=== PATIENT | female | born 1950 | race Caucasian/White ===

== ENCOUNTER → 2020-01-26 08:55 | Outpatient (CLI) | payer MEDICARE, OTHER, SELFPAY ==
--- NOTE | 2020-01-26 | DI.MG.S_ITS ---
BILATERAL DIGITAL SCREENING MAMMOGRAM 3D/2D WITH CAD: 01/26/2020 CLINICAL: Routine screening. Comparison is made to exams dated: 01/19/2019 mammogram, 12/15/2017 mammogram, and 11/15/2016 mammogram - [facility]. The tissue of both breasts is heterogeneously dense. This may lower the sensitivity of mammography. Current study was also evaluated with a Computer Aided Detection (CAD) system. No significant masses, calcifications, or other findings are seen in either breast. There has been no significant interval change. IMPRESSION: NEGATIVE There is no mammographic evidence of malignancy. A 1 year screening mammogram is recommended. This exam was interpreted at Station ID: [id number]. NOTE: For mammograms, a report in lay terms will be sent to the patient. Approximately 15% of breast malignancies will not be visualized mammographically. In the management of a palpable breast mass, a negative mammogram must not discourage biopsy of a clinically suspicious lesion. Electronically Signed By: Sarkis li/courtney:01/26/2020 09:31:39 letter sent: Normal Exam ACR BI-RADS Category 1: Negative [id number]
== END ==
PROVIDERS: PCP Nurse Practitioner; Referring Provider Nurse Practitioner; Visit Provider Nurse Practitioner
DX: Z12.31 Encounter for screening mammogram for malignant neoplasm of breast (principal)
CPT/HCPCS: 77063; 77067

== ENCOUNTER → 2020-02-17 09:45 | Outpatient (CLI) | payer MEDICARE, OTHER, SELFPAY ==
[2020-02-17 11:22] LABS: Appearance Urine UA CLEAR; Bilirubin Urine UA NEGATIVE (NEGATIVE); Color Urine UA YELLOW; Glucose Urine UA NEGATIVE (Negative); Ketones Urine UA NEGATIVE (NEGATIVE); Leukocyte Esterase Urine UA 2+ (NEGATIVE); Nitrite Urine UA NEGATIVE (Negative); Occult Blood Urine UA 3+ (Negative); Protein Urine UA NEGATIVE (Negative); Urobilinogen Urine UA 0.2 E.U./dL (0.2)
[2020-02-17 11:57] LABS: Creatinine Urine Random 60.8 mg/dL
[2020-02-17 12:01] LABS: Microalbumin Urine Random 5.9 mg/dL (0-1.6)
[2020-02-17 12:06] LABS: Hematocrit 36.9 % (36-46); Hemoglobin 12.1 g/dL (12.0-16.0); Mean Corpuscular HGB Conc 32.7 % (30-36); Mean Corpuscular Hemoglobin 28.3 PG (26-34); Mean Corpuscular Volume 86.6 fL (80-100); Platelet Count 247 X10^3/uL (150-400); Red Blood Cell Count 4.27 X10^6/uL (4.0-5.2); Red Cell Distribution Width 14.2 % (11.6-14.8); White Blood Cell Count 11.9 X10^3/uL (4.5-11.0)
[2020-02-17 12:23] LABS: Bacteria Urine Few (2-10); Culture Indicated Urine Specimen Cultured; RBC Urine 1-5/HPF (0-5/HPF); Renal Epithelial Cells Urine 0-1/HPF (0-1/HPF); Squamous Epithelial Cell Urine 0-1 /HPF (0-5/HPF); Transitional Epi Cells Urine 0-1/HPF (0-5/HPF); WBC Urine >100/HPF (0-5/HPF)
[2020-02-17 13:24] LABS: Free T3, Triiodothyronine Free 2.37 pg/mL (2.77-5.27); Free T4, Direct Thyroxine 1.47 ng/dL (0.78-2.19)
[2020-02-17 13:37] LABS: Thyroid Stimulating Hormone 1.17 uIU/mL (0.47-4.68)
[2020-02-17 16:22] LABS: Vitamin D 25 Hydroxy (D3) 39.3 ng/mL (30.0-100.0)
== END ==
PROVIDERS: PCP Nurse Practitioner; Referring Provider Nurse Practitioner; Visit Provider Nurse Practitioner
DX: E03.9 Hypothyroidism, unspecified (principal); Z79.899 Other long term (current) drug therapy; R30.0 Dysuria; E78.5 Hyperlipidemia, unspecified
CPT/HCPCS: 36415; 81001; 82043; 82306; 82570; 84439; 84443; 84481; 85027; 87077; 87086; 87186

== ENCOUNTER → 2020-04-14 08:08 | Outpatient (CLI) | payer MEDICARE, OTHER, SELFPAY ==
[2020-04-14 08:14] LABS: Bacteria Urine None Seen; RBC Urine None Seen (0-5/HPF); WBC Urine None Seen (0-5/HPF)
[2020-04-14 09:54] LABS: Appearance Urine UA CLEAR; Bilirubin Urine UA NEGATIVE (NEGATIVE); Color Urine UA YELLOW; Glucose Urine UA NEGATIVE (Negative); Ketones Urine UA NEGATIVE (NEGATIVE); Leukocyte Esterase Urine UA NEGATIVE (NEGATIVE); Nitrite Urine UA NEGATIVE (Negative); Occult Blood Urine UA NEGATIVE (Negative); Protein Urine UA NEGATIVE (Negative); Specific Gravity Urine UA 1.015 (1.000-1.035); Urobilinogen Urine UA 0.2 E.U./dL (0.2)
[2020-04-14 10:09] LABS: Culture Indicated Urine Cult Not Indicated; Squamous Epithelial Cell Urine 5-10 /HPF (0-5/HPF)
== END ==
PROVIDERS: PCP Nurse Practitioner; Referring Provider Nurse Practitioner; Visit Provider Nurse Practitioner
DX: E03.9 Hypothyroidism, unspecified (principal); Z79.899 Other long term (current) drug therapy
CPT/HCPCS: 81001

== ENCOUNTER → 2020-05-12 08:11 | Outpatient (CLI) | payer MEDICARE, OTHER, SELFPAY ==
[2020-05-12 10:48] LABS: Free T3, Triiodothyronine Free 3.39 pg/mL (2.77-5.27); Free T4, Direct Thyroxine 1.51 ng/dL (0.78-2.19)
[2020-05-12 11:01] LABS: Thyroid Stimulating Hormone 1.83 uIU/mL (0.47-4.68)
[2020-05-15 13:12] LABS: Fecal Immunochemical Test Negative (Negative)
== END ==
PROVIDERS: PCP Nurse Practitioner; Referring Provider Nurse Practitioner; Visit Provider Nurse Practitioner
DX: E03.9 Hypothyroidism, unspecified (principal); Z79.899 Other long term (current) drug therapy; Z12.11 Encounter for screening for malignant neoplasm of colon
CPT/HCPCS: 36415; 82274; 84439; 84443; 84481

== ENCOUNTER → 2020-06-23 08:14 | Outpatient (CLI) | payer MEDICARE, OTHER, SELFPAY ==
--- NOTE | 2020-06-23 08:16 | DI.RAD.S_ITS ---
PROCEDURE: XR ELBOW RT MIN 3V INDICATIONS: elbow sprain TECHNIQUE: 3 views of the elbow were acquired. COMPARISON: None. FINDINGS: Bones: No fractures or dislocations. No suspicious bony lesions. Soft tissues: No elbow joint effusion. No suspicious soft tissue calcifications. IMPRESSION: No evidence acute bony abnormality of the right elbow Dictated by: Jem Dobbs M.D. on 06/23/2020 at 9:19 Approved by: Jem Dobbs M.D. on 06/23/2020 at 9:20
== END ==
PROVIDERS: PCP Nurse Practitioner; Referring Provider Physical Medicine & Rehabilitation; Visit Provider Physical Medicine & Rehabilitation
DX: M25.521 Pain in right elbow (principal); S53.401A Unspecified sprain of right elbow, initial encounter; X58.XXXA Exposure to other specified factors, initial encounter
CPT/HCPCS: 73080

== ENCOUNTER → 2020-07-07 10:10 | Outpatient (CLI) | payer MEDICARE, OTHER, SELFPAY | PROVIDERS: PCP Nurse Practitioner; Referring Provider Nurse Practitioner; Visit Provider Nurse Practitioner | DX: M85.852 Other specified disorders of bone density and structure, left thigh (principal); Z78.0 Asymptomatic menopausal state; E07.9 Disorder of thyroid, unspecified; Z90.722 Acquired absence of ovaries, bilateral; Z82.62 Family history of osteoporosis | CPT/HCPCS: 77080 ==

== ENCOUNTER 2020-09-07 09:00 | Outpatient (RCR) | payer MEDICARE, OTHER, SELFPAY ==
--- NOTE | 2020-06-26 13:00 | PT.OPPOC ---
Physical, Occupational & Speech Therapy At [facility] Current Diagnoses Pain in right shoulder (06/26/20) Pain in right elbow (06/26/20) Cervicalgia (06/26/20) Abnormal posture (06/26/20) Weakness (06/26/20) Visit Care Team Role Provider Type CAMDEN Marion Attending Provider Advanced Illustrator Set Primary Care Provider Referring Provider Specialty: Family Practice Address: [address] [place] [address], [facility] Email: [email or web address] Plan Of Care PT-OP-T Assessment and Plan Start: 06/26/20 12:18 Freq: Status: Active Protocol: Document 06/26/20 12:59 SAK (Rec: 06/26/20 16:34 SAK [id number]) Physical Therapy Assessment Rehab Potential Rehabilitation Potential Good Evaluation Complexity Number of Personal Factors/Comorbidities 1-2 Number of Body Systems Impaired 3 Clinical Presentation at Evaluation Evolving Impairments Impairments Activity Tolerance,Pain, Posture,Strength Goals Four Impairment postural dysfunction Polishing Machine Tender Goal (LTG) Patient will demonstrate improvement in postural alignment at rest and during functional activities LTG Duration 08/25/20 Three Impairment weakness right UE Short Term Goal (STG) Instruct patient in HEP to address right UE weakness, patient to be independnet STG Duration 07/25/20 Polishing Machine Tender Goal (LTG) right UE strength 5/5 LTG Duration 08/25/20 One Impairment pain right shoulder, neck, and elbow 6/10 on pain scale Short Term Goal (STG) decrease pain by at least 50% STG Duration 07/25/20 Nursing Home Goal (LTG) decrease pain by at least 75% LTG Duration 08/25/20 Two Impairment activity intolerance with QuickDash shoulder disability questionnaire 32% Short Term Goal (STG) Decrease Quickdash score to no greater than 25% Polishing Machine Tender Goal (LTG) Improve Quickdash score to no greater than 15% with patient able to resume all usual activities including gardening LTG Duration 08/25/20 Assessment Summary Assessment Patient presents with function -limiting pain right shoulder and neck of a chronic nature, and a newer overuse injury to her elbow with sings and symptoms of tendonitis which has also exacerbated further her right shoulder and neck pain. Impairments include pain, activity intolerancepostural dysfunction, poor biomechanics , and weakness Physical Therapy Plan Frequency and Duration Frequency of Treatment 2x/Week Duration of Treatment 8 wks Plan of Care Start Date 06/26/20 Plan of Care End Date 08/25/20 Therapeutic Interventions Therapeutic Interventions Home Exercise Program,Joint Mobilizations,Manual Therapy, Patient/Caregiver Education, Self-Care/Home Management,Soft Tissue Mobilization,Taping, Therapeutic Activities, Therapeutic Exercises Modalities Cold Pack/Ice Massage,Electric Stimulation,Hot Packs, Infrared Therapy,Iontophoresis ,Ultrasound Next Visit Focus/Plan Next Note Type Treatment Note Next Visit Plan Review wall posture exercise, discuss habitual activities, postures. Discuss patient self-evaluation of sleeping position and postures. Progress ther exercises for postural correction, strengthening, scapular mechanics and stabilization. Modalities as needed for pain relief to include possible iontophoresis with Dexamethasone 4mg/ml to right lateral epicondyle. Plan of Care Dates Plan of Care Start Date 06/26/20 Plan of Care End Date 08/25/20 Electronically Signed by: Atiya Farley, PT 06/28/20 [id number] Please Sign and Return: I have reviewed this Plan of Care and certify that the skilled therapy services above are required to meet the patient?s needs. Physician Signature Date Printed Name and Credentials Clinical Instructor Signature Printed Name and Credentials
--- NOTE | 2020-06-26 13:00 | PT.OIE ---
Current Diagnoses Pain in right shoulder (06/26/20) Pain in right elbow (06/26/20) Cervicalgia (06/26/20) Abnormal posture (06/26/20) Weakness (06/26/20) Past Medical History (Last Updated 06/06/20 @ 15:40 by Carlo Gutierrez DO) Advance care planning Chicken pox (~1954) Elbow pain Hyperlipidemia LDL goal <100 Hypothyroidism (~2014) Laryngeal cyst Measles (~1952) Neck pain on right side Right shoulder pain Shoulder pain (~1999) Past Surgical History (Last Reviewed 02/23/20 @ 08:21 by CAMDEN Marion) Anesthesia History of hysterectomy (~1995) History of tonsillectomy (~1954) History of tubal ligation (~1987) Visit Care Team Role Provider Type CAMDEN Marion Attending Provider Advanced Jailor Primary Care Provider Referring Provider Specialty: [facility] Address: [address] [place] [address] Email: [email or web address] Physical Therapy Initial Evaluation PT-OP-A Visit Information Start: 06/26/20 12:18 Freq: Status: Active Protocol: Document 06/26/20 12:59 SAK (Rec: 06/26/20 13:51 SAK [id number]) Out-Patient Physical Therapy Visit Information Visit Information Visit Type Initial Evaluation Visit Start Time 13:00 Visit Stop Time 13:50 Total Visit Minutes 50 Visit Number 1 Evaluation Information Evaluation Date 06/26/20 PT-OP-B Current Condition Start: 06/26/20 12:18 Freq: Status: Active Protocol: Document 06/26/20 12:59 SAK (Rec: 06/26/20 13:51 SAK [id number]) Current Condition History of Current Condition Onset Date May 2020 Current Complaints right neck, shoulder and elbow pain. History of Current Condition Reports chronic right shoulder and neck pain due to reported postural compensation due to not having feet fixed at , bones of her feet grew over eachother, had postural issues. Got orthotics at 49 y/ o, helpful, though states has to work to re-align body. Has had PT multiple times over the years for feet, knees, hips, and up to neck and shoulder. Has done PT for neck and shoulder in past, feels she needs a tune up. Can't straighten neck. The most helpful was joint mobilization. Recently ( May) injured elbow doing yardwork and feels that has triggered the pain in neck ( behind ear), and into shoulder . Also feels pain into her hand. Most painful with gripping, pushing, and pulling . Elbow x-ray yesterday. Rest some helpful for elbow pain. Does neck extension mobilization with strap, cervical rotation stretch. Sleeps on right side. Patient is right handed. Prior Treatments and Tests ther ex, massage, joint mobilization Treatment Goals Patient/Caregiver Goals Decrease her pain and improve her ability to use her right UE for all acativities including gardening. Prior Functional Status Baseline Function- ADL's Independent Baseline Function- Mobility Independent Baseline Function- Recreation/Hobbies minimal to no pain Current Functional Impairments (Reported) Functional Limitations- ADL's painful Functional Limitations- Recreation/ painful Hobbies PT-OP-C Subjective Start: 06/26/20 12:18 Freq: Status: Active Protocol: Document 06/26/20 12:59 [facility] (Rec: 06/26/20 16:34 [facility] [id number]) Patient Questionnaires Neck Disability Index NDI Score 14 Quick Dash- Upper Extremity Quick Dash UE Score 32 OP-PT Pain Assessment Pain Assessment Grid Paper Pain Assessment Grid Completed Yes Location right neck, shoulder, elbow Intensity 6 Description Aching,Chronic,Shooting,Tender ,Tightness Frequency Intermittent Pain Aggravating Factors Lifting Other Pain Aggravating Factors reaching, gripping, vacuuming Pain Alleviating Factors Inactivity Other Pain Alleviating Factors heat Pain Behaviors Pain Behaviors Facial Grimacing,Guarding, Wincing PT-OP-F Manual Assessment Start: 06/26/20 12:18 Freq: Status: Active Protocol: Document 06/26/20 12:59 [facility] (Rec: 06/26/20 13:51 [facility] [id number]) Manual Assessments Soft Tissue Assessment Soft Tissue Mobility Assessment increased tightness right rhomboids, UT PT-OP-H Neuro Start: 06/26/20 12:18 Freq: Status: Active Protocol: Document 06/26/20 12:59 [facility] (Rec: 06/26/20 13:51 [facility] [id number]) Sensation Evaluation Gross Sensation Gross Sensation Right UE Impaired Sensation Description Paresthesia Location Details Right Upper Extremity Light Touch Intact/Normal PT-OP-J Posture/Palpation/Skin Start: 06/26/20 12:18 Freq: Status: Active Protocol: Document 06/26/20 12:59 [facility] (Rec: 06/26/20 16:34 [facility] [id number]) Posture Evaluation Position Sitting Head/C-Spine Posture Forward Head T-Spine Posture Increased Kyphosis L-Spine Posture Increased Lordosis Shoulder Posture (L) Rounded,(R) Rounded Scapula Posture (L) Protracted,(R) Protracted Arm Posture (L) Internally Rotated,(R) Internally Rotated Pelvis Posture Anteriorly Tilted Palpation Assessment Location lateral epicondyle Palpation Location right lateral epicondyle Palpation Findings Tenderness Two Palpation Location rhomboids Palpation Findings Soft Tissue Tightness Palpation Details increased tightness on right One Palpation Location upper traps Palpation Findings Soft Tissue Tightness Palpation Details puneet right greater than left PT-OP-K Range of Motion Start: 06/26/20 12:18 Freq: Status: Active Protocol: Document 06/26/20 12:59 [facility] (Rec: 06/26/20 16:34 [facility] [id number]) Cervical Spine Range of Motion Cervical Spine Active Testing Position Sitting Flexion 60 Extension 48 Rotation Left 65 Rotation Right 60 Lateral Flexion Left 18 Lateral Flexion Right 30 ROM Limitations Soft Tissue Tightness Shoulder Goniometric Range of Motion Shoulder Right Shoulder ROM WFL No Testing Position sitting and supine Flexion 165 Extension 30 Abduction 160 Horizontal Abduction 90 Horizontal Adduction 35 External Rotation at 45 degrees 65 Abduction Internal Rotation Behind Back (text) T12 Left Shoulder ROM WFL Yes Shoulder ROM Limitations Shoulder ROM Limitations Soft Tissue Tightness Elbow/Forearm Range of Motion Elbow/Forearm Right Active Elbow/Forearm ROM WFL Yes Comments painful at end ranges pron and supination Left Elbow/Forearm ROM WFL Yes Elbow/Forearm ROM Limitations Elbow/Forearm ROM Limitations Soft Tissue Tightness Wrist Goniometric Range of Motion Wrist Right Wrist ROM WFL No Flexion Passive (degrees) 45 Extension Active (degrees) 55 Left Wrist ROM WFL Yes ROM Limitations Wrist Limitations of Range of Motion Soft Tissue Tightness PT-OP-M Strength Start: 06/26/20 12:18 Freq: Status: Active Protocol: Document 06/26/20 12:59 [facility] (Rec: 06/26/20 16:34 [facility] [id number]) Scapula Strength Scapula Manual Muscle Testing puneet Elevation (C4) 4+ Good+ Adduction 4- Good- Abduction 4 Good Depression 4- Good- Shoulder Strength Shoulder Manual Muscle Testing Right Flexion 4 Good Extension 4 Good Abduction (C5) 4 Good External Rotation 4 Good Internal Rotation 4+ Good+ Left Flexion 5 Normal Extension 5 Normal Abduction (C5) 5 Normal Adduction 5 Normal External Rotation 4 Good Internal Rotation 4+ Good+ Elbow/Forearm Strength Elbow and Forearm Manual Muscle Testing Right Flexion (C6) 4+ Good+ Extension (C7) 4+ Good+ Left Flexion (C6) 5 Normal Extension (C7) 5 Normal Wrist Strength Wrist Manual Muscle Testing Right Flexion (C7) 4+ Good+ Extension (C6) 4+ Good+ Left Flexion (C7) 5 Normal Extension (C6) 5 Normal PT-OP-Q Treatments Start: 06/26/20 12:18 Freq: Status: Active Protocol: Document 06/26/20 12:59 [facility] (Rec: 06/26/20 16:34 [facility] [id number]) Self-Care/Home Management Treatment Education Patient Education Body Mechanics,Home Exercise Program,Pain Management, Posture Other Education Healthy sleep positioning Pay attention to habitual positioning and movements PT-OP-T Assessment and Plan Start: 06/26/20 12:18 Freq: Status: Active Protocol: Document 06/26/20 12:59 [facility] (Rec: 06/26/20 16:34 [facility] [id number]) Physical Therapy Assessment Rehab Potential Rehabilitation Potential Good Evaluation Complexity Number of Personal Factors/Comorbidities 1-2 Number of Body Systems Impaired 3 Clinical Presentation at Evaluation Evolving Impairments Impairments Activity Tolerance,Pain, Posture,Strength Goals Four Impairment postural dysfunction Aids Social Worker Goal (LTG) Patient will demonstrate improvement in postural alignment at rest and during functional activities LTG Duration 08/25/20 Three Impairment weakness right UE Short Term Goal (STG) Instruct patient in HEP to address right UE weakness, patient to be independnet STG Duration 07/25/20 Custodial Goal (LTG) right UE strength 5/5 LTG Duration 08/25/20 One Impairment pain right shoulder, neck, and elbow 6/10 on pain scale Short Term Goal (STG) decrease pain by at least 50% STG Duration 07/25/20 Aids Social Worker Goal (LTG) decrease pain by at least 75% LTG Duration 08/25/20 Two Impairment activity intolerance with QuickDash shoulder disability questionnaire 32% Short Term Goal (STG) Decrease Quickdash score to no greater than 25% Aids Social Worker Goal (LTG) Improve Quickdash score to no greater than 15% with patient able to resume all usual activities including gardening LTG Duration 08/25/20 Assessment Summary Assessment Patient presents with function -limiting pain right shoulder and neck of a chronic nature, and a newer overuse injury to her elbow with sings and symptoms of tendonitis which has also exacerbated further her right shoulder and neck pain. Impairments include pain, activity intolerancepostural dysfunction, poor biomechanics , and weakness Physical Therapy Plan Frequency and Duration Frequency of Treatment 2x/Week Duration of Treatment 8 wks Plan of Care Start Date 06/26/20 Plan of Care End Date 08/25/20 Therapeutic Interventions Therapeutic Interventions Home Exercise Program,Joint Mobilizations,Manual Therapy, Patient/Caregiver Education, Self-Care/Home Management,Soft Tissue Mobilization,Taping, Therapeutic Activities, Therapeutic Exercises Modalities Cold Pack/Ice Massage,Electric Stimulation,Hot Packs, Infrared Therapy,Iontophoresis ,Ultrasound Next Visit Focus/Plan Next Note Type Treatment Note Next Visit Plan Review wall posture exercise, discuss habitual activities, postures. Discuss patient self-evaluation of sleeping position and postures. Progress ther exercises for postural correction, strengthening, scapular mechanics and stabilization. Modalities as needed for pain relief to include possible iontophoresis with Dexamethasone 4mg/ml to right lateral epicondyle.
--- NOTE | 2020-06-28 14:14 | PT.OTN ---
Current Diagnoses Pain in right shoulder (06/28/20) Pain in right elbow (06/28/20) Cervicalgia (06/28/20) Abnormal posture (06/28/20) Weakness (06/28/20) Physical Therapy Treatment Note PT-OP-A Visit Information Start: 06/26/20 12:18 Freq: Status: Active Protocol: Document 06/28/20 12:57 SAK (Rec: 06/28/20 14:12 SAK [id number]) Out-Patient Physical Therapy Visit Information Visit Information Visit Type Initial Evaluation Visit Start Time 13:00 Visit Stop Time 13:55 Total Visit Minutes 55 Visit Number 2 Evaluation Information Evaluation Date 06/26/20 PT-OP-B Current Condition Start: 06/26/20 12:18 Freq: Status: Active Protocol: Document 06/28/20 12:57 SAK (Rec: 06/28/20 14:12 SAK [id number]) Current Condition Treatment Goals Patient/Caregiver Goals Decrease her pain and improve her ability to use her right UE for all acativities including gardening. PT-OP-C Subjective Start: 06/26/20 12:18 Freq: Status: Active Protocol: Document 06/28/20 12:57 SAK (Rec: 06/28/20 14:14 SAK [id number]) OP-PT Subjective Patient Comments Patient Comments reports sore but really trying to pay attention to her postural alignment; states as soon as I get to correcting one area the prior area has lost it. Has foam roller, is in process of getting treadmill. Hasn't tried any gardening since last seen. PT-OP-F Manual Assessment Start: 06/26/20 12:18 Freq: Status: Active Protocol: Document 06/26/20 12:59 SAK (Rec: 06/26/20 13:51 SAK [id number]) Manual Assessments Soft Tissue Assessment Soft Tissue Mobility Assessment increased tightness right rhomboids, UT PT-OP-H Neuro Start: 06/26/20 12:18 Freq: Status: Active Protocol: Document 06/26/20 12:59 SAK (Rec: 06/26/20 13:51 SAK [id number]) Sensation Evaluation Gross Sensation Gross Sensation Right UE Impaired Sensation Description Paresthesia Location Details Right Upper Extremity Light Touch Intact/Normal PT-OP-J Posture/Palpation/Skin Start: 06/26/20 12:18 Freq: Status: Active Protocol: Document 06/26/20 12:59 [facility] (Rec: 06/26/20 16:34 [facility] [id number]) Posture Evaluation Position Sitting Head/C-Spine Posture Forward Head T-Spine Posture Increased Kyphosis L-Spine Posture Increased Lordosis Shoulder Posture (L) Rounded,(R) Rounded Scapula Posture (L) Protracted,(R) Protracted Arm Posture (L) Internally Rotated,(R) Internally Rotated Pelvis Posture Anteriorly Tilted Palpation Assessment Location lateral epicondyle Palpation Location right lateral epicondyle Palpation Findings Tenderness Two Palpation Location rhomboids Palpation Findings Soft Tissue Tightness Palpation Details increased tightness on right One Palpation Location upper traps Palpation Findings Soft Tissue Tightness Palpation Details puneet right greater than left PT-OP-K Range of Motion Start: 06/26/20 12:18 Freq: Status: Active Protocol: Document 06/26/20 12:59 [facility] (Rec: 06/26/20 16:34 [facility] [id number]) Cervical Spine Range of Motion Cervical Spine Active Testing Position Sitting Flexion 60 Extension 48 Rotation Left 65 Rotation Right 60 Lateral Flexion Left 18 Lateral Flexion Right 30 ROM Limitations Soft Tissue Tightness Shoulder Goniometric Range of Motion Shoulder Right Shoulder ROM WFL No Testing Position sitting and supine Flexion 165 Extension 30 Abduction 160 Horizontal Abduction 90 Horizontal Adduction 35 External Rotation at 45 degrees 65 Abduction Internal Rotation Behind Back (text) T12 Left Shoulder ROM WFL Yes Shoulder ROM Limitations Shoulder ROM Limitations Soft Tissue Tightness Elbow/Forearm Range of Motion Elbow/Forearm Right Active Elbow/Forearm ROM WFL Yes Comments painful at end ranges pron and supination Left Elbow/Forearm ROM WFL Yes Elbow/Forearm ROM Limitations Elbow/Forearm ROM Limitations Soft Tissue Tightness Wrist Goniometric Range of Motion Wrist Right Wrist ROM WFL No Flexion Passive (degrees) 45 Extension Active (degrees) 55 Left Wrist ROM WFL Yes ROM Limitations Wrist Limitations of Range of Motion Soft Tissue Tightness PT-OP-M Strength Start: 06/26/20 12:18 Freq: Status: Active Protocol: Document 06/26/20 12:59 [facility] (Rec: 06/26/20 16:34 [facility] [id number]) Scapula Strength Scapula Manual Muscle Testing puneet Elevation (C4) 4+ Good+ Adduction 4- Good- Abduction 4 Good Depression 4- Good- Shoulder Strength Shoulder Manual Muscle Testing Right Flexion 4 Good Extension 4 Good Abduction (C5) 4 Good External Rotation 4 Good Internal Rotation 4+ Good+ Left Flexion 5 Normal Extension 5 Normal Abduction (C5) 5 Normal Adduction 5 Normal External Rotation 4 Good Internal Rotation 4+ Good+ Elbow/Forearm Strength Elbow and Forearm Manual Muscle Testing Right Flexion (C6) 4+ Good+ Extension (C7) 4+ Good+ Left Flexion (C6) 5 Normal Extension (C7) 5 Normal Wrist Strength Wrist Manual Muscle Testing Right Flexion (C7) 4+ Good+ Extension (C6) 4+ Good+ Left Flexion (C7) 5 Normal Extension (C6) 5 Normal PT-OP-Q Treatments Start: 06/26/20 12:18 Freq: Status: Active Protocol: Document 06/28/20 12:57 [facility] (Rec: 06/28/20 14:12 [facility] [id number]) Cardio Equipment Recumbent Stepper (Sci-Fit) Duration (Minutes) 5 Resistance 1 Seat Position 8 Therapeutic Exercises Supine Exercises postural isometric Reps/Minutes 5x supine DLS Supine Exercise Name puneet and unil shoulder flex, should hor ab/ad, march Equipment Used 1/2 foam roller (laying on flat side) serratus punch Side bilateral Equipment Used foam roller Reps/Minutes 10x pec stretch Side bilateral Equipment Used foam roller Reps/Minutes 30x2 Sidelying Exercises open book Side bilateral Reps/Minutes 5x10 Comments with deep breath at endrange, manual facil for segmental movement, thoracic Standing Exercises posture roll-up Reps/Minutes 2x wall posture Reps/Minutes 3x5 Self-Care/Home Management Treatment Education Patient Education Body Mechanics,Home Exercise Program,Pain Management, Posture Other Education neutral alignment with standing, walking PT-OP-R Modalities Start: 06/26/20 12:18 Freq: Status: Active Protocol: Document 06/28/20 12:57 [facility] (Rec: 06/28/20 14:12 [facility] [id number]) Iontophoresis Treatment right lateral epicondyle Treatment Medication Dexamethasone (-) Medication Amount (mL) (ml) 1.0 Medication Dosage 4mg/ml Treatment Polarity negative Treatment Duration (minutes) 1 Comment Treatment Comment patient advised to remove after 4 hours PT-OP-T Assessment and Plan Start: 06/26/20 12:18 Freq: Status: Active Protocol: Document 06/28/20 12:57 [facility] (Rec: 06/28/20 14:12 [facility] [id number]) Physical Therapy Assessment Goals Four Impairment postural dysfunction Staff Development Coordinator Rn Goal (LTG) Patient will demonstrate improvement in postural alignment at rest and during functional activities LTG Duration 08/25/20 Three Impairment weakness right UE Short Term Goal (STG) Instruct patient in HEP to address right UE weakness, patient to be independnet STG Duration 07/25/20 Staff Development Coordinator Rn Goal (LTG) right UE strength 5/5 LTG Duration 08/25/20 One Impairment pain right shoulder, neck, and elbow 6/10 on pain scale Short Term Goal (STG) decrease pain by at least 50% STG Duration 07/25/20 Staff Development Coordinator Rn Goal (LTG) decrease pain by at least 75% LTG Duration 08/25/20 Two Impairment activity intolerance with QuickDash shoulder disability questionnaire 32% Short Term Goal (STG) Decrease Quickdash score to no greater than 25% Staff Development Coordinator Rn Goal (LTG) Improve Quickdash score to no greater than 15% with patient able to resume all usual activities including gardening LTG Duration 08/25/20 Assessment Summary Assessment Patient needs moderate verbal and tactile cues for postural correction and alignment, correct technique with exercises. Ran out of time for doing manual treatment today except for during open book exercise, but feel next session should focus more on manual thoracic and cervical mobilization, DTM to right forearm. Patient demonstrated good understanding of ther ex and was issued written handout. Physical Therapy Plan Frequency and Duration Frequency of Treatment 2x/Week Duration of Treatment 8 wks Plan of Care Start Date 06/26/20 Plan of Care End Date 08/25/20 Therapeutic Interventions Therapeutic Interventions Home Exercise Program,Joint Mobilizations,Manual Therapy, Patient/Caregiver Education, Self-Care/Home Management,Soft Tissue Mobilization,Taping, Therapeutic Activities, Therapeutic Exercises Modalities Cold Pack/Ice Massage,Electric Stimulation,Hot Packs, Infrared Therapy,Iontophoresis ,Ultrasound Next Visit Focus/Plan Next Note Type Treatment Note Next Visit Plan Continue PT with review of HEP , postural education for gait on treadmill (patient just obtained), and manual treatment to forearm extensors with stretch, as well as mobilization to cervical and thoracic spine. evaluate response to iontophoresis and continue if helpful.
--- NOTE | 2020-07-07 09:48 | PT.OTN ---
Current Diagnoses Pain in right shoulder (07/07/20) Pain in right elbow (07/07/20) Cervicalgia (07/07/20) Abnormal posture (07/07/20) Weakness (07/07/20) Physical Therapy Treatment Note PT-OP-A Visit Information Start: 06/26/20 12:18 Freq: Status: Active Protocol: Document 07/07/20 09:06 SP (Rec: 07/07/20 11:47 SP [id number]) Out-Patient Physical Therapy Visit Information Visit Information Visit Type Treatment Note Visit Start Time 09:06 Visit Stop Time 09:48 Total Visit Minutes 42 Visit Number 3 Number of HVAC PROJECT MANAGER Visits 1 PT-OP-B Current Condition Start: 06/26/20 12:18 Freq: Status: Active Protocol: Document 06/28/20 12:57 SAK (Rec: 06/28/20 14:12 SAK [id number]) Current Condition Treatment Goals Patient/Caregiver Goals Decrease her pain and improve her ability to use her right UE for all acativities including gardening. PT-OP-C Subjective Start: 06/26/20 12:18 Freq: Status: Active Protocol: Document 07/07/20 09:06 SP (Rec: 07/07/20 11:47 SP [id number]) OP-PT Subjective Patient Comments Patient Comments Pt reports not doing ex as should be, don't remember to do exercises and want to be better about it. Still pretty tight in neck, R shld, elbow. Does have alot of past execises in stretches but know will be guided in PT as to what want her to work on right now. PT-OP-F Manual Assessment Start: 06/26/20 12:18 Freq: Status: Active Protocol: Document 06/26/20 12:59 SAK (Rec: 06/26/20 13:51 SAK [id number]) Manual Assessments Soft Tissue Assessment Soft Tissue Mobility Assessment increased tightness right rhomboids, UT PT-OP-H Neuro Start: 06/26/20 12:18 Freq: Status: Active Protocol: Document 06/26/20 12:59 SAK (Rec: 06/26/20 13:51 SAK [id number]) Sensation Evaluation Gross Sensation Gross Sensation Right UE Impaired Sensation Description Paresthesia Location Details Right Upper Extremity Light Touch Intact/Normal PT-OP-J Posture/Palpation/Skin Start: 06/26/20 12:18 Freq: Status: Active Protocol: Document 06/26/20 12:59 [facility] (Rec: 06/26/20 16:34 [facility] [id number]) Posture Evaluation Position Sitting Head/C-Spine Posture Forward Head T-Spine Posture Increased Kyphosis L-Spine Posture Increased Lordosis Shoulder Posture (L) Rounded,(R) Rounded Scapula Posture (L) Protracted,(R) Protracted Arm Posture (L) Internally Rotated,(R) Internally Rotated Pelvis Posture Anteriorly Tilted Palpation Assessment Location lateral epicondyle Palpation Location right lateral epicondyle Palpation Findings Tenderness Two Palpation Location rhomboids Palpation Findings Soft Tissue Tightness Palpation Details increased tightness on right One Palpation Location upper traps Palpation Findings Soft Tissue Tightness Palpation Details puneet right greater than left PT-OP-K Range of Motion Start: 06/26/20 12:18 Freq: Status: Active Protocol: Document 06/26/20 12:59 [facility] (Rec: 06/26/20 16:34 [facility] [id number]) Cervical Spine Range of Motion Cervical Spine Active Testing Position Sitting Flexion 60 Extension 48 Rotation Left 65 Rotation Right 60 Lateral Flexion Left 18 Lateral Flexion Right 30 ROM Limitations Soft Tissue Tightness Shoulder Goniometric Range of Motion Shoulder Right Shoulder ROM WFL No Testing Position sitting and supine Flexion 165 Extension 30 Abduction 160 Horizontal Abduction 90 Horizontal Adduction 35 External Rotation at 45 degrees 65 Abduction Internal Rotation Behind Back (text) T12 Left Shoulder ROM WFL Yes Shoulder ROM Limitations Shoulder ROM Limitations Soft Tissue Tightness Elbow/Forearm Range of Motion Elbow/Forearm Right Active Elbow/Forearm ROM WFL Yes Comments painful at end ranges pron and supination Left Elbow/Forearm ROM WFL Yes Elbow/Forearm ROM Limitations Elbow/Forearm ROM Limitations Soft Tissue Tightness Wrist Goniometric Range of Motion Wrist Right Wrist ROM WFL No Flexion Passive (degrees) 45 Extension Active (degrees) 55 Left Wrist ROM WFL Yes ROM Limitations Wrist Limitations of Range of Motion Soft Tissue Tightness PT-OP-M Strength Start: 06/26/20 12:18 Freq: Status: Active Protocol: Document 06/26/20 12:59 [facility] (Rec: 06/26/20 16:34 [facility] [id number]) Scapula Strength Scapula Manual Muscle Testing puneet Elevation (C4) 4+ Good+ Adduction 4- Good- Abduction 4 Good Depression 4- Good- Shoulder Strength Shoulder Manual Muscle Testing Right Flexion 4 Good Extension 4 Good Abduction (C5) 4 Good External Rotation 4 Good Internal Rotation 4+ Good+ Left Flexion 5 Normal Extension 5 Normal Abduction (C5) 5 Normal Adduction 5 Normal External Rotation 4 Good Internal Rotation 4+ Good+ Elbow/Forearm Strength Elbow and Forearm Manual Muscle Testing Right Flexion (C6) 4+ Good+ Extension (C7) 4+ Good+ Left Flexion (C6) 5 Normal Extension (C7) 5 Normal Wrist Strength Wrist Manual Muscle Testing Right Flexion (C7) 4+ Good+ Extension (C6) 4+ Good+ Left Flexion (C7) 5 Normal Extension (C6) 5 Normal PT-OP-Q Treatments Start: 06/26/20 12:18 Freq: Status: Active Protocol: Document 07/07/20 09:06 SP (Rec: 07/07/20 11:47 SP [id number]) Therapeutic Exercises Supine Exercises serratus punch Side bilateral Equipment Used foam roller Reps/Minutes 10x Comments cued scap protract/retract/ depress pec stretch Side bilateral Equipment Used foam roller Reps/Minutes 30x2 Other Exercises theracane self STMs Other Exercise Name Posterior neck and scapular complex Side right Comments WMW Manual Therapy Treatment Soft Tissue Mobilization neck, R shld Body Location upper trap, lev scap, suboccipital release, Mobilization Type Myofascial Release,Sustained Pressure,Other Intensity/Depth Moderate Body Position Supine Comments also with MWM, pin muscles and add chin nod and turn then instructed self STMs with use of theracane with good demo to therapist. Self-Care/Home Management Treatment Education Patient Education Body Mechanics,Home Exercise Program,Pain Management, Posture Other Education neutral alignment with standing, walking, scapular depressed awareness and core facilitation during UE ther ex . PT-OP-R Modalities Start: 06/26/20 12:18 Freq: Status: Active Protocol: Document 06/28/20 12:57 SAK (Rec: 06/28/20 14:12 SAK [id number]) Iontophoresis Treatment right lateral epicondyle Treatment Medication Dexamethasone (-) Medication Amount (mL) (ml) 1.0 Medication Dosage 4mg/ml Treatment Polarity negative Treatment Duration (minutes) 1 Comment Treatment Comment patient advised to remove after 4 hours PT-OP-T Assessment and Plan Start: 06/26/20 12:18 Freq: Status: Active Protocol: Document 07/07/20 09:06 SP (Rec: 03/05/21 11:47 SP [id number]) Physical Therapy Assessment Goals Four Impairment postural dysfunction Fund Manager Goal (LTG) Patient will demonstrate improvement in postural alignment at rest and during functional activities LTG Duration 08/25/20 Three Impairment weakness right UE Short Term Goal (STG) Instruct patient in HEP to address right UE weakness, patient to be independnet STG Duration 07/25/20 Correction Goal (LTG) right UE strength 5/5 LTG Duration 08/25/20 One Impairment pain right shoulder, neck, and elbow 6/10 on pain scale Short Term Goal (STG) decrease pain by at least 50% STG Duration 07/25/20 Fund Manager Goal (LTG) decrease pain by at least 75% LTG Duration 08/25/20 Two Impairment activity intolerance with QuickDash shoulder disability questionnaire 32% Short Term Goal (STG) Decrease Quickdash score to no greater than 25% Fund Manager Goal (LTG) Improve Quickdash score to no greater than 15% with patient able to resume all usual activities including gardening LTG Duration 08/25/20 Assessment Summary Assessment Tx started with manual to post neck, supraspinatus, lev scap w/ MWM head nod/ turn for self applical at home with good feedback decreasing muscle tension. Extra time spent with scapular stabilization inferiorly during eccentric return of serratus press while over foam roller stated thought the postion was alot better. Intiated use of theracane and discussed head and scap alignment with improved R shld depressed awareness and head L side bend to neutral before left for allowance of proper form with ex. Physical Therapy Plan Frequency and Duration Frequency of Treatment 2x/Week Duration of Treatment 8 wks Plan of Care Start Date 06/26/20 Plan of Care End Date 08/25/20 Therapeutic Interventions Therapeutic Interventions Home Exercise Program,Joint Mobilizations,Manual Therapy, Patient/Caregiver Education, Self-Care/Home Management,Soft Tissue Mobilization,Taping, Therapeutic Activities, Therapeutic Exercises Modalities Cold Pack/Ice Massage,Electric Stimulation,Hot Packs, Infrared Therapy,Iontophoresis ,Ultrasound Next Visit Focus/Plan Next Note Type Treatment Note Next Visit Plan Assess response to manual and self use of theracane and serratus press/ pec stretch over faom roller last tx. Continue PT with review of HEP , postural education for gait on treadmill (patient just obtained), and manual treatment to forearm extensors with stretch, as well as mobilization to cervical and thoracic spine. evaluate response to iontophoresis and continue if helpful.
--- NOTE | 2020-07-11 16:03 | PT.OTN ---
Current Diagnoses Pain in right shoulder (07/11/20) Pain in right elbow (07/11/20) Cervicalgia (07/11/20) Abnormal posture (07/11/20) Weakness (07/11/20) Physical Therapy Treatment Note PT-OP-A Visit Information Start: 06/26/20 12:18 Freq: Status: Active Protocol: Document 07/11/20 15:31 SP (Rec: 07/11/20 16:15 SP [id number]) Out-Patient Physical Therapy Visit Information Visit Information Visit Type Treatment Note Visit Start Time 15:20 Visit Stop Time 16:03 Total Visit Minutes 43 Visit Number 4 Number of FLOWER MACHINE OPERATOR Visits 2 PT-OP-B Current Condition Start: 06/26/20 12:18 Freq: Status: Active Protocol: Document 06/28/20 12:57 SAK (Rec: 06/28/20 14:12 SAK [id number]) Current Condition Treatment Goals Patient/Caregiver Goals Decrease her pain and improve her ability to use her right UE for all acativities including gardening. PT-OP-C Subjective Start: 06/26/20 12:18 Freq: Status: Active Protocol: Document 07/11/20 15:31 SP (Rec: 07/11/20 16:15 SP [id number]) OP-PT Subjective Patient Comments Patient Comments Pt stated doing well with ther ex. Waited to them today until got here. PT-OP-F Manual Assessment Start: 06/26/20 12:18 Freq: Status: Active Protocol: Document 06/26/20 12:59 SAK (Rec: 06/26/20 13:51 SAK [id number]) Manual Assessments Soft Tissue Assessment Soft Tissue Mobility Assessment increased tightness right rhomboids, UT PT-OP-H Neuro Start: 06/26/20 12:18 Freq: Status: Active Protocol: Document 06/26/20 12:59 SAK (Rec: 06/26/20 13:51 SAK [id number]) Sensation Evaluation Gross Sensation Gross Sensation Right UE Impaired Sensation Description Paresthesia Location Details Right Upper Extremity Light Touch Intact/Normal PT-OP-J Posture/Palpation/Skin Start: 06/26/20 12:18 Freq: Status: Active Protocol: Document 06/26/20 12:59 SAK (Rec: 06/26/20 16:34 SAK [id number]) Posture Evaluation Position Sitting Head/C-Spine Posture Forward Head T-Spine Posture Increased Kyphosis L-Spine Posture Increased Lordosis Shoulder Posture (L) Rounded,(R) Rounded Scapula Posture (L) Protracted,(R) Protracted Arm Posture (L) Internally Rotated,(R) Internally Rotated Pelvis Posture Anteriorly Tilted Palpation Assessment Location lateral epicondyle Palpation Location right lateral epicondyle Palpation Findings Tenderness Two Palpation Location rhomboids Palpation Findings Soft Tissue Tightness Palpation Details increased tightness on right One Palpation Location upper traps Palpation Findings Soft Tissue Tightness Palpation Details puneet right greater than left PT-OP-K Range of Motion Start: 06/26/20 12:18 Freq: Status: Active Protocol: Document 06/26/20 12:59 SAK (Rec: 06/26/20 16:34 SAK [id number]) Cervical Spine Range of Motion Cervical Spine Active Testing Position Sitting Flexion 60 Extension 48 Rotation Left 65 Rotation Right 60 Lateral Flexion Left 18 Lateral Flexion Right 30 ROM Limitations Soft Tissue Tightness Shoulder Goniometric Range of Motion Shoulder Right Shoulder ROM WFL No Testing Position sitting and supine Flexion 165 Extension 30 Abduction 160 Horizontal Abduction 90 Horizontal Adduction 35 External Rotation at 45 degrees 65 Abduction Internal Rotation Behind Back (text) T12 Left Shoulder ROM WFL Yes Shoulder ROM Limitations Shoulder ROM Limitations Soft Tissue Tightness Elbow/Forearm Range of Motion Elbow/Forearm Right Active Elbow/Forearm ROM WFL Yes Comments painful at end ranges pron and supination Left Elbow/Forearm ROM WFL Yes Elbow/Forearm ROM Limitations Elbow/Forearm ROM Limitations Soft Tissue Tightness Wrist Goniometric Range of Motion Wrist Right Wrist ROM WFL No Flexion Passive (degrees) 45 Extension Active (degrees) 55 Left Wrist ROM WFL Yes ROM Limitations Wrist Limitations of Range of Motion Soft Tissue Tightness PT-OP-M Strength Start: 06/26/20 12:18 Freq: Status: Active Protocol: Document 06/26/20 12:59 SAK (Rec: 06/26/20 16:34 SAK [id number]) Scapula Strength Scapula Manual Muscle Testing puneet Elevation (C4) 4+ Good+ Adduction 4- Good- Abduction 4 Good Depression 4- Good- Shoulder Strength Shoulder Manual Muscle Testing Right Flexion 4 Good Extension 4 Good Abduction (C5) 4 Good External Rotation 4 Good Internal Rotation 4+ Good+ Left Flexion 5 Normal Extension 5 Normal Abduction (C5) 5 Normal Adduction 5 Normal External Rotation 4 Good Internal Rotation 4+ Good+ Elbow/Forearm Strength Elbow and Forearm Manual Muscle Testing Right Flexion (C6) 4+ Good+ Extension (C7) 4+ Good+ Left Flexion (C6) 5 Normal Extension (C7) 5 Normal Wrist Strength Wrist Manual Muscle Testing Right Flexion (C7) 4+ Good+ Extension (C6) 4+ Good+ Left Flexion (C7) 5 Normal Extension (C6) 5 Normal PT-OP-Q Treatments Start: 06/26/20 12:18 Freq: Status: Active Protocol: Document 07/11/20 15:31 SP (Rec: 07/11/20 16:15 SP [id number]) Cardio Equipment Treadmill Duration (Minutes) 6 Speed 2.0-2.3mph Incline 0-1.0 Other cued arm swing, R knee longer stride to allow heel stike to toe phase Therapeutic Exercises Supine Exercises ff, scaption, HABD TB Supine Exercise Name added HEP Resistance Tb #1 Equipment Used over foam roller Reps/Minutes x10 each Comments cued scap stab depression awareness serratus punch Supine Exercise Name review HEP- can discontinue after today- easy Side bilateral Resistance AROM> Tb Equipment Used foam roller Reps/Minutes 10x Comments cued scap protract/retract/ depress pec stretch Supine Exercise Name review HEP Side bilateral Equipment Used foam roller Reps/Minutes 30x2 Sidelying Exercises open book Side bilateral Reps/Minutes 5x10 Comments with deep breath at endrange, manual facil for segmental movement, thoracic Standing Exercises posture roll-up Reps/Minutes x5 Comments cued upper abdominal facilitation to allow LS toward wall, cued chin tuck wall posture Standing Exercise Name supine on floor, to hard on wall Reps/Minutes 3x5 sec hold Comments good upper abdominal facilitation, chin tuck PT-OP-R Modalities Start: 06/26/20 12:18 Freq: Status: Active Protocol: Document 06/28/20 12:57 SAK (Rec: 06/28/20 14:12 SAK [id number]) Iontophoresis Treatment right lateral epicondyle Treatment Medication Dexamethasone (-) Medication Amount (mL) (ml) 1.0 Medication Dosage 4mg/ml Treatment Polarity negative Treatment Duration (minutes) 1 Comment Treatment Comment patient advised to remove after 4 hours PT-OP-T Assessment and Plan Start: 06/26/20 12:18 Freq: Status: Active Protocol: Document 07/11/20 15:31 SP (Rec: 07/11/20 16:15 SP [id number]) Physical Therapy Assessment Goals Four Impairment postural dysfunction [facility] Goal (LTG) Patient will demonstrate improvement in postural alignment at rest and during functional activities LTG Duration 08/25/20 Three Impairment weakness right UE Short Term Goal (STG) Instruct patient in HEP to address right UE weakness, patient to be independnet STG Duration 07/25/20 [facility] Goal (LTG) right UE strength 5/5 LTG Duration 08/25/20 One Impairment pain right shoulder, neck, and elbow 6/10 on pain scale Short Term Goal (STG) decrease pain by at least 50% STG Duration 07/25/20 Molder Inflated Ball Goal (LTG) decrease pain by at least 75% LTG Duration 08/25/20 Two Impairment activity intolerance with QuickDash shoulder disability questionnaire 32% Short Term Goal (STG) Decrease Quickdash score to no greater than 25% [facility] Goal (LTG) Improve Quickdash score to no greater than 15% with patient able to resume all usual activities including gardening LTG Duration 08/25/20 Assessment Summary Assessment Pt demonstrated improved scap retract/depress OH raise over foam roller discontinued for HEP, easy. Initated HABD & scaption using TB over foam roller with good same stab faciliation and very little GH jt discomfort less as reps progress. Continued wall roll ups, challenged by wall posture keep to supine. Pt likes to walk quickly on TM for work out, improved R knee ext/heel toe with decreased speed and education quality LE stride and arm swing, continue to review. Physical Therapy Plan Frequency and Duration Frequency of Treatment 2x/Week Duration of Treatment 8 wks Plan of Care Start Date 06/26/20 Plan of Care End Date 08/25/20 Therapeutic Interventions Therapeutic Interventions Home Exercise Program,Joint Mobilizations,Manual Therapy, Patient/Caregiver Education, Self-Care/Home Management,Soft Tissue Mobilization,Taping, Therapeutic Activities, Therapeutic Exercises Modalities Cold Pack/Ice Massage,Electric Stimulation,Hot Packs, Infrared Therapy,Iontophoresis ,Ultrasound Next Visit Focus/Plan Next Note Type Treatment Note Next Visit Plan Next tx consolidate HEP, pt stated to many. Response to Tb scaption/ HABD last tx. Continue PT with review of HEP , postural education for gait on treadmill (patient just obtained), and manual treatment to forearm extensors with stretch, as well as mobilization to cervical and thoracic spine. evaluate response to iontophoresis and continue if helpful.
--- NOTE | 2020-07-13 09:08 | PT.OTN ---
Current Diagnoses Pain in right shoulder (07/13/20) Pain in right elbow (07/13/20) Cervicalgia (07/13/20) Abnormal posture (07/13/20) Weakness (07/13/20) Physical Therapy Treatment Note PT-OP-A Visit Information Start: 06/26/20 12:18 Freq: Status: Active Protocol: Document 07/13/20 08:20 SP (Rec: 07/13/20 09:42 SP [id number]) Out-Patient Physical Therapy Visit Information Visit Information Visit Type Treatment Note Visit Start Time 08:20 Visit Stop Time 09:08 Total Visit Minutes 48 Visit Number 5 Number of CORRECTIONAL CASE MANAGER Visits 3 PT-OP-B Current Condition Start: 06/26/20 12:18 Freq: Status: Active Protocol: Document 06/28/20 12:57 SAK (Rec: 06/28/20 14:12 SAK [id number]) Current Condition Treatment Goals Patient/Caregiver Goals Decrease her pain and improve her ability to use her right UE for all acativities including gardening. PT-OP-C Subjective Start: 06/26/20 12:18 Freq: Status: Active Protocol: Document 07/13/20 08:20 SP (Rec: 07/13/20 09:42 SP [id number]) OP-PT Subjective Patient Comments Patient Comments Pt stated after last appt R bicep and elbow were irritated and noted again when tried to do the Tb exercises. Pt states the tingling in R hand is pretty much gone. PT-OP-F Manual Assessment Start: 06/26/20 12:18 Freq: Status: Active Protocol: Document 06/26/20 12:59 SAK (Rec: 06/26/20 13:51 SAK [id number]) Manual Assessments Soft Tissue Assessment Soft Tissue Mobility Assessment increased tightness right rhomboids, UT PT-OP-H Neuro Start: 06/26/20 12:18 Freq: Status: Active Protocol: Document 06/26/20 12:59 SAK (Rec: 06/26/20 13:51 SAK [id number]) Sensation Evaluation Gross Sensation Gross Sensation Right UE Impaired Sensation Description Paresthesia Location Details Right Upper Extremity Light Touch Intact/Normal PT-OP-J Posture/Palpation/Skin Start: 06/26/20 12:18 Freq: Status: Active Protocol: Document 06/26/20 12:59 SAK (Rec: 02/22/21 16:34 [facility] [id number]) Posture Evaluation Position Sitting Head/C-Spine Posture Forward Head T-Spine Posture Increased Kyphosis L-Spine Posture Increased Lordosis Shoulder Posture (L) Rounded,(R) Rounded Scapula Posture (L) Protracted,(R) Protracted Arm Posture (L) Internally Rotated,(R) Internally Rotated Pelvis Posture Anteriorly Tilted Palpation Assessment Location lateral epicondyle Palpation Location right lateral epicondyle Palpation Findings Tenderness Two Palpation Location rhomboids Palpation Findings Soft Tissue Tightness Palpation Details increased tightness on right One Palpation Location upper traps Palpation Findings Soft Tissue Tightness Palpation Details puneet right greater than left PT-OP-K Range of Motion Start: 06/26/20 12:18 Freq: Status: Active Protocol: Document 06/26/20 12:59 [facility] (Rec: 06/26/20 16:34 [facility] [id number]) Cervical Spine Range of Motion Cervical Spine Active Testing Position Sitting Flexion 60 Extension 48 Rotation Left 65 Rotation Right 60 Lateral Flexion Left 18 Lateral Flexion Right 30 ROM Limitations Soft Tissue Tightness Shoulder Goniometric Range of Motion Shoulder Right Shoulder ROM WFL No Testing Position sitting and supine Flexion 165 Extension 30 Abduction 160 Horizontal Abduction 90 Horizontal Adduction 35 External Rotation at 45 degrees 65 Abduction Internal Rotation Behind Back (text) T12 Left Shoulder ROM WFL Yes Shoulder ROM Limitations Shoulder ROM Limitations Soft Tissue Tightness Elbow/Forearm Range of Motion Elbow/Forearm Right Active Elbow/Forearm ROM WFL Yes Comments painful at end ranges pron and supination Left Elbow/Forearm ROM WFL Yes Elbow/Forearm ROM Limitations Elbow/Forearm ROM Limitations Soft Tissue Tightness Wrist Goniometric Range of Motion Wrist Right Wrist ROM WFL No Flexion Passive (degrees) 45 Extension Active (degrees) 55 Left Wrist ROM WFL Yes ROM Limitations Wrist Limitations of Range of Motion Soft Tissue Tightness PT-OP-M Strength Start: 06/26/20 12:18 Freq: Status: Active Protocol: Document 06/26/20 12:59 [facility] (Rec: 06/26/20 16:34 [facility] [id number]) Scapula Strength Scapula Manual Muscle Testing puneet Elevation (C4) 4+ Good+ Adduction 4- Good- Abduction 4 Good Depression 4- Good- Shoulder Strength Shoulder Manual Muscle Testing Right Flexion 4 Good Extension 4 Good Abduction (C5) 4 Good External Rotation 4 Good Internal Rotation 4+ Good+ Left Flexion 5 Normal Extension 5 Normal Abduction (C5) 5 Normal Adduction 5 Normal External Rotation 4 Good Internal Rotation 4+ Good+ Elbow/Forearm Strength Elbow and Forearm Manual Muscle Testing Right Flexion (C6) 4+ Good+ Extension (C7) 4+ Good+ Left Flexion (C6) 5 Normal Extension (C7) 5 Normal Wrist Strength Wrist Manual Muscle Testing Right Flexion (C7) 4+ Good+ Extension (C6) 4+ Good+ Left Flexion (C7) 5 Normal Extension (C6) 5 Normal PT-OP-Q Treatments Start: 06/26/20 12:18 Freq: Status: Active Protocol: Document 07/13/20 08:20 SP (Rec: 07/13/20 09:42 SP [id number]) Therapeutic Exercises Supine Exercises postural isometric Supine Exercise Name HEP Reps/Minutes 5x supine DLS Supine Exercise Name puneet and unil shoulder flex, should hor ab/ad (HEP) Equipment Used her foam roller Comments march to hard at home so just UE pec stretch Supine Exercise Name HEP Side bilateral Equipment Used foam roller Reps/Minutes 30x2 Sidelying Exercises open book Sidelying Exercise Name HEP Side bilateral Reps/Minutes 5x10 Comments with deep breath at endrange, manual facil for segmental movement, thoracic Standing Exercises posture roll-up Reps/Minutes x5 Comments cued upper abdominal facilitation to allow LS toward wall, cued chin tuck Other Exercises foam roller Other Exercise Name TS ext/ roll; Le: hs, glut, ITB Side bilateral Equipment Used personal foam roller Reps/Minutes time to tolerance and benefit 8 min overall spent Comments cued awareness of UE WB tolerance, good scap stabilzation during theracane self STMs Other Exercise Name Posterior neck and scapular complex Side right Equipment Used PRN as needed Comments WMW chin tuck/ head turn Manual Therapy Treatment Soft Tissue Mobilization R forearm extensors Mobilization Type Sustained Pressure,Other Intensity/Depth Moderate Body Position Sitting Comments MWM forearm pron/ sup, wrist flex/ ext cued slow pace pressure tolerance Self-Care/Home Management Treatment Education Patient Education Body Mechanics,Home Exercise Program,Pain Management, Posture Other Education extra time spent discussion on LE alignment for gait TM, provided Le and TS foam roll and theracane for self application flexibility comfort with mobility. PT-OP-R Modalities Start: 06/26/20 12:18 Freq: Status: Active Protocol: Document 06/28/20 12:57 SAK (Rec: 06/28/20 14:12 SAK [id number]) Iontophoresis Treatment right lateral epicondyle Treatment Medication Dexamethasone (-) Medication Amount (mL) (ml) 1.0 Medication Dosage 4mg/ml Treatment Polarity negative Treatment Duration (minutes) 1 Comment Treatment Comment patient advised to remove after 4 hours PT-OP-T Assessment and Plan Start: 06/26/20 12:18 Freq: Status: Active Protocol: Document 07/13/20 08:20 SP (Rec: 07/13/20 09:42 SP [id number]) Physical Therapy Assessment Goals Four Impairment postural dysfunction Education Intern Goal (LTG) Patient will demonstrate improvement in postural alignment at rest and during functional activities LTG Duration 08/25/20 Three Impairment weakness right UE Short Term Goal (STG) Instruct patient in HEP to address right UE weakness, patient to be independnet STG Duration 07/25/20 [facility] Goal (LTG) right UE strength 5/5 LTG Duration 08/25/20 One Impairment pain right shoulder, neck, and elbow 6/10 on pain scale Short Term Goal (STG) decrease pain by at least 50% STG Duration 07/25/20 Education Intern Goal (LTG) decrease pain by at least 75% LTG Duration 08/25/20 Two Impairment activity intolerance with QuickDash shoulder disability questionnaire 32% Short Term Goal (STG) Decrease Quickdash score to no greater than 25% Education Intern Goal (LTG) Improve Quickdash score to no greater than 15% with patient able to resume all usual activities including gardening LTG Duration 08/25/20 Assessment Summary Assessment Pt responded well to review HEP ther ex keep to ROM Ue at this time. Initiated manual then self MWM forearm extensors w/ wrist flex/ ext and elbow pron/sup pressure to tolerance with report of soreness in elbow post. Pt stated neck and shld more loose end of tx. Physical Therapy Plan Frequency and Duration Frequency of Treatment 2x/Week Duration of Treatment 8 wks Plan of Care Start Date 06/26/20 Plan of Care End Date 08/25/20 Therapeutic Interventions Therapeutic Interventions Home Exercise Program,Joint Mobilizations,Manual Therapy, Patient/Caregiver Education, Self-Care/Home Management,Soft Tissue Mobilization,Taping, Therapeutic Activities, Therapeutic Exercises Modalities Cold Pack/Ice Massage,Electric Stimulation,Hot Packs, Infrared Therapy,Iontophoresis ,Ultrasound Next Visit Focus/Plan Next Note Type Treatment Note Next Visit Plan Assess reponse to consolidated HEP (see active ex): flexibility, AROM UE, initiated self STMs MWM forearm ext. Next tx: focus on R elbow STMs and initiated mobs if tolerated and pt wants to add R hip/ LE alignment strengthening to POC to improve gait on TM or outdoor walks. Continue posture at floor vs wall. Continue PT with review of HEP , postural education for gait on treadmill (patient just obtained), and manual treatment to forearm extensors with stretch, as well as mobilization to cervical and thoracic spine. evaluate response to iontophoresis and continue if helpful.
--- NOTE | 2020-07-19 15:59 | PT.OTN ---
Current Diagnoses Pain in right shoulder (07/19/20) Pain in right elbow (07/19/20) Cervicalgia (07/19/20) Abnormal posture (07/19/20) Weakness (07/19/20) Physical Therapy Treatment Note PT-OP-A Visit Information Start: 06/26/20 12:18 Freq: Status: Active Protocol: Document 07/19/20 13:46 SAK (Rec: 07/19/20 14:34 SAK [id number]) Out-Patient Physical Therapy Visit Information Visit Information Visit Type Treatment Note Visit Start Time 13:47 Visit Stop Time 14:32 Total Visit Minutes 45 Visit Number 6 Number of SENIOR CATEGORY MANAGER Visits 0 PT-OP-B Current Condition Start: 06/26/20 12:18 Freq: Status: Active Protocol: Document 06/28/20 12:57 SAK (Rec: 06/28/20 14:12 SAK [id number]) Current Condition Treatment Goals Patient/Caregiver Goals Decrease her pain and improve her ability to use her right UE for all acativities including gardening. PT-OP-C Subjective Start: 06/26/20 12:18 Freq: Status: Active Protocol: Document 07/19/20 13:46 SAK (Rec: 07/19/20 14:34 SAK [id number]) OP-PT Subjective Patient Comments Patient Comments self massage painful to forearm and elbow after last session so hasn't done again. Elbow pain intermittant, unpredictable, though reports frequently feels after weeding . Hasn't seen Dr. Gutierrez yet . PT-OP-F Manual Assessment Start: 06/26/20 12:18 Freq: Status: Active Protocol: Document 06/26/20 12:59 SAK (Rec: 06/26/20 13:51 SAK [id number]) Manual Assessments Soft Tissue Assessment Soft Tissue Mobility Assessment increased tightness right rhomboids, UT PT-OP-H Neuro Start: 06/26/20 12:18 Freq: Status: Active Protocol: Document 06/26/20 12:59 SAK (Rec: 06/26/20 13:51 SAK [id number]) Sensation Evaluation Gross Sensation Gross Sensation Right UE Impaired Sensation Description Paresthesia Location Details Right Upper Extremity Light Touch Intact/Normal PT-OP-J Posture/Palpation/Skin Start: 06/26/20 12:18 Freq: Status: Active Protocol: Document 06/26/20 12:59 [facility] (Rec: 06/26/20 16:34 [facility] [id number]) Posture Evaluation Position Sitting Head/C-Spine Posture Forward Head T-Spine Posture Increased Kyphosis L-Spine Posture Increased Lordosis Shoulder Posture (L) Rounded,(R) Rounded Scapula Posture (L) Protracted,(R) Protracted Arm Posture (L) Internally Rotated,(R) Internally Rotated Pelvis Posture Anteriorly Tilted Palpation Assessment Location lateral epicondyle Palpation Location right lateral epicondyle Palpation Findings Tenderness Two Palpation Location rhomboids Palpation Findings Soft Tissue Tightness Palpation Details increased tightness on right One Palpation Location upper traps Palpation Findings Soft Tissue Tightness Palpation Details puneet right greater than left PT-OP-K Range of Motion Start: 06/26/20 12:18 Freq: Status: Active Protocol: Document 06/26/20 12:59 [facility] (Rec: 06/26/20 16:34 [facility] [id number]) Cervical Spine Range of Motion Cervical Spine Active Testing Position Sitting Flexion 60 Extension 48 Rotation Left 65 Rotation Right 60 Lateral Flexion Left 18 Lateral Flexion Right 30 ROM Limitations Soft Tissue Tightness Shoulder Goniometric Range of Motion Shoulder Right Shoulder ROM WFL No Testing Position sitting and supine Flexion 165 Extension 30 Abduction 160 Horizontal Abduction 90 Horizontal Adduction 35 External Rotation at 45 degrees 65 Abduction Internal Rotation Behind Back (text) T12 Left Shoulder ROM WFL Yes Shoulder ROM Limitations Shoulder ROM Limitations Soft Tissue Tightness Elbow/Forearm Range of Motion Elbow/Forearm Right Active Elbow/Forearm ROM WFL Yes Comments painful at end ranges pron and supination Left Elbow/Forearm ROM WFL Yes Elbow/Forearm ROM Limitations Elbow/Forearm ROM Limitations Soft Tissue Tightness Wrist Goniometric Range of Motion Wrist Right Wrist ROM WFL No Flexion Passive (degrees) 45 Extension Active (degrees) 55 Left Wrist ROM WFL Yes ROM Limitations Wrist Limitations of Range of Motion Soft Tissue Tightness PT-OP-M Strength Start: 06/26/20 12:18 Freq: Status: Active Protocol: Document 06/26/20 12:59 [facility] (Rec: 06/26/20 16:34 [facility] [id number]) Scapula Strength Scapula Manual Muscle Testing puneet Elevation (C4) 4+ Good+ Adduction 4- Good- Abduction 4 Good Depression 4- Good- Shoulder Strength Shoulder Manual Muscle Testing Right Flexion 4 Good Extension 4 Good Abduction (C5) 4 Good External Rotation 4 Good Internal Rotation 4+ Good+ Left Flexion 5 Normal Extension 5 Normal Abduction (C5) 5 Normal Adduction 5 Normal External Rotation 4 Good Internal Rotation 4+ Good+ Elbow/Forearm Strength Elbow and Forearm Manual Muscle Testing Right Flexion (C6) 4+ Good+ Extension (C7) 4+ Good+ Left Flexion (C6) 5 Normal Extension (C7) 5 Normal Wrist Strength Wrist Manual Muscle Testing Right Flexion (C7) 4+ Good+ Extension (C6) 4+ Good+ Left Flexion (C7) 5 Normal Extension (C6) 5 Normal PT-OP-Q Treatments Start: 06/26/20 12:18 Freq: Status: Active Protocol: Document 07/19/20 13:46 SAK (Rec: 07/19/20 14:34 SAK [id number]) Therapeutic Exercises Supine Exercises ff, scaption, HABD TB Resistance L2 TB Equipment Used over foam roller Reps/Minutes x10 each Comments cued scap stab depression awareness supine DLS Supine Exercise Name puneet and unil shoulder flex, should hor ab/ad (HEP) Equipment Used her foam roller Comments march to hard at home so just UE serratus punch Side bilateral Resistance 2# Equipment Used foam roller Reps/Minutes 10x Comments cued scap protract/retract/ depress pec stretch Supine Exercise Name HEP Side bilateral Equipment Used foam roller Reps/Minutes 30x2 Sitting Exercises wrist stretch Sitting Exercise Name flex and ext Reps/Minutes 2x Comments especially after repetitive activity Standing Exercises posture roll-up Reps/Minutes x5 Comments cued upper abdominal facilitation to allow LS toward wall, cued chin tuck wall posture Standing Exercise Name supine on floor, to hard on wall Reps/Minutes 3x5 sec hold Comments good upper abdominal facilitation, chin tuck Other Exercises foam roller Other Exercise Name HEP Manual Therapy Treatment Soft Tissue Mobilization R forearm extensors Mobilization Type Myofascial Release,Rolling, Sustained Pressure Intensity/Depth Deep Body Position Sitting Self-Care/Home Management Treatment Education Patient Education Body Mechanics,Home Exercise Program,Posture Activities Self-Care/Home Management Activities discussed and simulated gardening activities including lifting, carrying, weeding with instruction for best postural alignment, body mechanics. Use of yardstick for reference for posture with squad, sit to stand PT-OP-R Modalities Start: 06/26/20 12:18 Freq: Status: Active Protocol: Document 06/28/20 12:57 SAK (Rec: 06/28/20 14:12 SAK [id number]) Iontophoresis Treatment right lateral epicondyle Treatment Medication Dexamethasone (-) Medication Amount (mL) (ml) 1.0 Medication Dosage 4mg/ml Treatment Polarity negative Treatment Duration (minutes) 1 Comment Treatment Comment patient advised to remove after 4 hours PT-OP-T Assessment and Plan Start: 06/26/20 12:18 Freq: Status: Active Protocol: Document 07/19/20 13:46 [facility] (Rec: 07/19/20 14:34 [facility] [id number]) Physical Therapy Assessment Goals Four Impairment postural dysfunction Veterinary Receptionist Goal (LTG) Patient will demonstrate improvement in postural alignment at rest and during functional activities LTG Duration 08/25/20 Three Impairment weakness right UE Short Term Goal (STG) Instruct patient in HEP to address right UE weakness, patient to be independnet STG Duration 07/25/20 Veterinary Receptionist Goal (LTG) right UE strength 5/5 LTG Duration 08/25/20 One Impairment pain right shoulder, neck, and elbow 6/10 on pain scale Short Term Goal (STG) decrease pain by at least 50% STG Duration 07/25/20 Veterinary Receptionist Goal (LTG) decrease pain by at least 75% LTG Duration 08/25/20 Two Impairment activity intolerance with QuickDash shoulder disability questionnaire 32% Short Term Goal (STG) Decrease Quickdash score to no greater than 25% Veterinary Receptionist Goal (LTG) Improve Quickdash score to no greater than 15% with patient able to resume all usual activities including gardening LTG Duration 08/25/20 Assessment Summary Assessment Patient reported feeling comfortable with current HEP, addition of L2 TB to supine ex on roller. Needs moderate cues for postural alignment and body mechanics, though verbalized good understanding. She requested discontinue further PT, but agreed to 1 further session in approx 3 weeks to reassess progress with HEP, progress as indicated, review posture and body mechanics as needed prior to d/c. Physical Therapy Plan Frequency and Duration Frequency of Treatment 2x/Week Duration of Treatment 8 wks Plan of Care Start Date 06/26/20 Plan of Care End Date 08/25/20 Therapeutic Interventions Therapeutic Interventions Home Exercise Program,Joint Mobilizations,Manual Therapy, Patient/Caregiver Education, Self-Care/Home Management,Soft Tissue Mobilization,Taping, Therapeutic Activities, Therapeutic Exercises Modalities Cold Pack/Ice Massage,Electric Stimulation,Hot Packs, Infrared Therapy,Iontophoresis ,Ultrasound Next Visit Focus/Plan Next Note Type Treatment Note Next Visit Plan cancel all but last scheduled PT appointment for follow-up as above. Will determine at that time if ready for discharge or needs further PT.
--- NOTE | 2020-08-09 09:27 | PT.OTN ---
Current Diagnoses Pain in right shoulder (08/09/20) Pain in right elbow (08/09/20) Cervicalgia (08/09/20) Abnormal posture (08/09/20) Weakness (08/09/20) Physical Therapy Treatment Note PT-OP-A Visit Information Start: 06/26/20 12:18 Freq: Status: Active Protocol: Document 08/09/20 09:11 SAK (Rec: 08/09/20 09:25 SAK [id number]) Out-Patient Physical Therapy Visit Information Visit Information Visit Type Treatment Note Visit Start Time 08:15 Visit Stop Time 09:15 Total Visit Minutes 60 Visit Number 7 Number of EP TECHNOLOGIST Visits 0 PT-OP-B Current Condition Start: 06/26/20 12:18 Freq: Status: Active Protocol: Document 06/28/20 12:57 SAK (Rec: 06/28/20 14:12 SAK [id number]) Current Condition Treatment Goals Patient/Caregiver Goals Decrease her pain and improve her ability to use her right UE for all acativities including gardening. PT-OP-C Subjective Start: 06/26/20 12:18 Freq: Status: Active Protocol: Document 08/09/20 09:11 SAK (Rec: 08/09/20 09:25 SAK [id number]) OP-PT Subjective Patient Comments Patient Comments Patient reports saw Dr. Gutierrez who recommended elbow strap, ice massage, hasn't done either. Patient also offered ultrasound or laser but she refused today prefering to work further on postural realignment and joint mobilization. States has a lot of difficulty in correcting posture especially in standing. Continues with HEP including cat/cow, open book, foam roller exercises with foam roller vertical and horizontal. PT-OP-F Manual Assessment Start: 06/26/20 12:18 Freq: Status: Active Protocol: Document 06/26/20 12:59 SAK (Rec: 06/26/20 13:51 SAK [id number]) Manual Assessments Soft Tissue Assessment Soft Tissue Mobility Assessment increased tightness right rhomboids, [place] PT-OP-H Neuro Start: 06/26/20 12:18 Freq: Status: Active Protocol: Document 06/26/20 12:59 SAK (Rec: 06/26/20 13:51 SAK [id number]) Sensation Evaluation Gross Sensation Gross Sensation Right UE Impaired Sensation Description Paresthesia Location Details Right Upper Extremity Light Touch Intact/Normal PT-OP-J Posture/Palpation/Skin Start: 06/26/20 12:18 Freq: Status: Active Protocol: Document 06/26/20 12:59 [facility] (Rec: 06/26/20 16:34 [facility] [id number]) Posture Evaluation Position Sitting Head/C-Spine Posture Forward Head T-Spine Posture Increased Kyphosis L-Spine Posture Increased Lordosis Shoulder Posture (L) Rounded,(R) Rounded Scapula Posture (L) Protracted,(R) Protracted Arm Posture (L) Internally Rotated,(R) Internally Rotated Pelvis Posture Anteriorly Tilted Palpation Assessment Location lateral epicondyle Palpation Location right lateral epicondyle Palpation Findings Tenderness Two Palpation Location rhomboids Palpation Findings Soft Tissue Tightness Palpation Details increased tightness on right One Palpation Location upper traps Palpation Findings Soft Tissue Tightness Palpation Details puneet right greater than left PT-OP-K Range of Motion Start: 06/26/20 12:18 Freq: Status: Active Protocol: Document 06/26/20 12:59 [facility] (Rec: 06/26/20 16:34 [facility] [id number]) Cervical Spine Range of Motion Cervical Spine Active Testing Position Sitting Flexion 60 Extension 48 Rotation Left 65 Rotation Right 60 Lateral Flexion Left 18 Lateral Flexion Right 30 ROM Limitations Soft Tissue Tightness Shoulder Goniometric Range of Motion Shoulder Right Shoulder ROM WFL No Testing Position sitting and supine Flexion 165 Extension 30 Abduction 160 Horizontal Abduction 90 Horizontal Adduction 35 External Rotation at 45 degrees 65 Abduction Internal Rotation Behind Back (text) T12 Left Shoulder ROM WFL Yes Shoulder ROM Limitations Shoulder ROM Limitations Soft Tissue Tightness Elbow/Forearm Range of Motion Elbow/Forearm Right Active Elbow/Forearm ROM WFL Yes Comments painful at end ranges pron and supination Left Elbow/Forearm ROM WFL Yes Elbow/Forearm ROM Limitations Elbow/Forearm ROM Limitations Soft Tissue Tightness Wrist Goniometric Range of Motion Wrist Right Wrist ROM WFL No Flexion Passive (degrees) 45 Extension Active (degrees) 55 Left Wrist ROM WFL Yes ROM Limitations Wrist Limitations of Range of Motion Soft Tissue Tightness PT-OP-M Strength Start: 06/26/20 12:18 Freq: Status: Active Protocol: Document 06/26/20 12:59 [facility] (Rec: 06/26/20 16:34 [facility] [id number]) Scapula Strength Scapula Manual Muscle Testing puneet Elevation (C4) 4+ Good+ Adduction 4- Good- Abduction 4 Good Depression 4- Good- Shoulder Strength Shoulder Manual Muscle Testing Right Flexion 4 Good Extension 4 Good Abduction (C5) 4 Good External Rotation 4 Good Internal Rotation 4+ Good+ Left Flexion 5 Normal Extension 5 Normal Abduction (C5) 5 Normal Adduction 5 Normal External Rotation 4 Good Internal Rotation 4+ Good+ Elbow/Forearm Strength Elbow and Forearm Manual Muscle Testing Right Flexion (C6) 4+ Good+ Extension (C7) 4+ Good+ Left Flexion (C6) 5 Normal Extension (C7) 5 Normal Wrist Strength Wrist Manual Muscle Testing Right Flexion (C7) 4+ Good+ Extension (C6) 4+ Good+ Left Flexion (C7) 5 Normal Extension (C6) 5 Normal PT-OP-Q Treatments Start: 06/26/20 12:18 Freq: Status: Active Protocol: Document 08/09/20 09:11 [facility] (Rec: 08/09/20 09:25 [facility] [id number]) Therapeutic Exercises Sitting Exercises sit to stand Equipment Used yardstick Reps/Minutes 4x Comments cue neutral posture postural correction Reps/Minutes 5 min Comments initially cued pelvic tilt, then reposition thoracic spine over pelvis thoracic extension Equipment Used towel roll, then purple ball at different segments thoracic spine Reps/Minutes 10x Standing Exercises standing postural realignment Reps/Minutes 5 min Comments verbal and manual cues Other Exercises quadriped cat/cow Equipment Used yoga mat, mirror Comments difficulty mobilizing thoracic spine Manual Therapy Treatment Joint Mobilizations T4-T10 Joint PA Grade III Body Position Prone Comments use of wedge Self-Care/Home Management Treatment Education Patient Education Body Mechanics,Pain Management ,Posture Other Education encouraged use of elbow strap as recommended by Dr. Gutierrez and previously by PT PT-OP-R Modalities Start: 06/26/20 12:18 Freq: Status: Active Protocol: Document 08/09/20 09:11 [facility] (Rec: 08/09/20 09:27 [facility] [id number]) Hot Pack/Cold Pack Treatment Hot Pack Location thoracic spine Patient Position Hooklying Treatment Duration (minutes) 15 Patient Tolerance Good Comments s/p joint mobilization Ice Massage Location right lateral epicondyle Patient Position Sitting Treatment Duration (minutes) 3 Patient Tolerance Fair Comments patient instructed in self ice massage PT-OP-T Assessment and Plan Start: 06/26/20 12:18 Freq: Status: Active Protocol: Document 08/09/20 09:11 [facility] (Rec: 08/09/20 09:25 [facility] [id number]) Physical Therapy Assessment Goals Four Impairment postural dysfunction Custodial Goal (LTG) Patient will demonstrate improvement in postural alignment at rest and during functional activities LTG Duration 08/25/20 Three Impairment weakness right UE Short Term Goal (STG) Instruct patient in HEP to address right UE weakness, patient to be independnet STG Duration 07/25/20 Patient Care Nursing Assistant Goal (LTG) right UE strength 5/5 LTG Duration 08/25/20 One Impairment pain right shoulder, neck, and elbow 6/10 on pain scale Short Term Goal (STG) decrease pain by at least 50% STG Duration 07/25/20 Patient Care Nursing Assistant Goal (LTG) decrease pain by at least 75% LTG Duration 08/25/20 Two Impairment activity intolerance with QuickDash shoulder disability questionnaire 32% Short Term Goal (STG) Decrease Quickdash score to no greater than 25% Custodial Goal (LTG) Improve Quickdash score to no greater than 15% with patient able to resume all usual activities including gardening LTG Duration 08/25/20 Physical Therapy Plan Frequency and Duration Frequency of Treatment 2x/Week Duration of Treatment 8 wks Plan of Care Start Date 06/26/20 Plan of Care End Date 08/25/20 Therapeutic Interventions Therapeutic Interventions Home Exercise Program,Joint Mobilizations,Manual Therapy, Patient/Caregiver Education, Self-Care/Home Management,Soft Tissue Mobilization,Taping, Therapeutic Activities, Therapeutic Exercises Modalities Cold Pack/Ice Massage,Electric Stimulation,Hot Packs, Infrared Therapy,Iontophoresis ,Ultrasound Next Visit Focus/Plan Next Note Type Treatment Note Next Visit Plan Feel patient would benefit from further PT with emphasis on thoracic mobilization to decrease UE pain, improve postural alignment and function
--- NOTE | 2020-08-18 09:40 | PT.OTN ---
Current Diagnoses Pain in right shoulder (08/18/20) Pain in right elbow (08/18/20) Cervicalgia (08/18/20) Abnormal posture (08/18/20) Weakness (08/18/20) Physical Therapy Treatment Note PT-OP-A Visit Information Start: 06/26/20 12:18 Freq: Status: Active Protocol: Document 08/18/20 08:55 SP (Rec: 08/18/20 09:47 SP [id number]) Out-Patient Physical Therapy Visit Information Visit Information Visit Type Treatment Note Visit Start Time 08:55 Visit Stop Time 09:40 Total Visit Minutes 45 Visit Number 8 Number of [employer] Visits 1 Evaluation Information Evaluation Date 06/26/20 PT-OP-B Current Condition Start: 06/26/20 12:18 Freq: Status: Active Protocol: Document 06/28/20 12:57 SAK (Rec: 06/28/20 14:12 SAK [id number]) Current Condition Treatment Goals Patient/Caregiver Goals Decrease her pain and improve her ability to use her right UE for all acativities including gardening. PT-OP-C Subjective Start: 06/26/20 12:18 Freq: Status: Active Protocol: Document 08/18/20 08:55 SP (Rec: 08/18/20 09:47 SP [id number]) OP-PT Subjective Patient Comments Patient Comments Pt reports felt really good after last tx til yesterday more limber, loose and able to extend over form roller. Got another reminder of what it is to be straight again. Was able to complete getting more pavers for yard, poundage with very minimal pain and not needing elbow strap, Dr Gutierrez stated hold off if not needed . Patient Reported Progress Improving PT-OP-F Manual Assessment Start: 06/26/20 12:18 Freq: Status: Active Protocol: Document 06/26/20 12:59 SAK (Rec: 06/26/20 13:51 SAK [id number]) Manual Assessments Soft Tissue Assessment Soft Tissue Mobility Assessment increased tightness right rhomboids, UT PT-OP-H Neuro Start: 06/26/20 12:18 Freq: Status: Active Protocol: Document 06/26/20 12:59 SAK (Rec: 06/26/20 13:51 SAK [id number]) Sensation Evaluation Gross Sensation Gross Sensation Right UE Impaired Sensation Description Paresthesia Location Details Right Upper Extremity Light Touch Intact/Normal PT-OP-J Posture/Palpation/Skin Start: 06/26/20 12:18 Freq: Status: Active Protocol: Document 06/26/20 12:59 [facility] (Rec: 06/26/20 16:34 [facility] [id number]) Posture Evaluation Position Sitting Head/C-Spine Posture Forward Head T-Spine Posture Increased Kyphosis L-Spine Posture Increased Lordosis Shoulder Posture (L) Rounded,(R) Rounded Scapula Posture (L) Protracted,(R) Protracted Arm Posture (L) Internally Rotated,(R) Internally Rotated Pelvis Posture Anteriorly Tilted Palpation Assessment Location lateral epicondyle Palpation Location right lateral epicondyle Palpation Findings Tenderness Two Palpation Location rhomboids Palpation Findings Soft Tissue Tightness Palpation Details increased tightness on right One Palpation Location upper traps Palpation Findings Soft Tissue Tightness Palpation Details puneet right greater than left PT-OP-K Range of Motion Start: 06/26/20 12:18 Freq: Status: Active Protocol: Document 06/26/20 12:59 [facility] (Rec: 06/26/20 16:34 [facility] [id number]) Cervical Spine Range of Motion Cervical Spine Active Testing Position Sitting Flexion 60 Extension 48 Rotation Left 65 Rotation Right 60 Lateral Flexion Left 18 Lateral Flexion Right 30 ROM Limitations Soft Tissue Tightness Shoulder Goniometric Range of Motion Shoulder Right Shoulder ROM WFL No Testing Position sitting and supine Flexion 165 Extension 30 Abduction 160 Horizontal Abduction 90 Horizontal Adduction 35 External Rotation at 45 degrees 65 Abduction Internal Rotation Behind Back (text) T12 Left Shoulder ROM WFL Yes Shoulder ROM Limitations Shoulder ROM Limitations Soft Tissue Tightness Elbow/Forearm Range of Motion Elbow/Forearm Right Active Elbow/Forearm ROM WFL Yes Comments painful at end ranges pron and supination Left Elbow/Forearm ROM WFL Yes Elbow/Forearm ROM Limitations Elbow/Forearm ROM Limitations Soft Tissue Tightness Wrist Goniometric Range of Motion Wrist Right Wrist ROM WFL No Flexion Passive (degrees) 45 Extension Active (degrees) 55 Left Wrist ROM WFL Yes ROM Limitations Wrist Limitations of Range of Motion Soft Tissue Tightness PT-OP-M Strength Start: 06/26/20 12:18 Freq: Status: Active Protocol: Document 06/26/20 12:59 [facility] (Rec: 06/26/20 16:34 [facility] [id number]) Scapula Strength Scapula Manual Muscle Testing puneet Elevation (C4) 4+ Good+ Adduction 4- Good- Abduction 4 Good Depression 4- Good- Shoulder Strength Shoulder Manual Muscle Testing Right Flexion 4 Good Extension 4 Good Abduction (C5) 4 Good External Rotation 4 Good Internal Rotation 4+ Good+ Left Flexion 5 Normal Extension 5 Normal Abduction (C5) 5 Normal Adduction 5 Normal External Rotation 4 Good Internal Rotation 4+ Good+ Elbow/Forearm Strength Elbow and Forearm Manual Muscle Testing Right Flexion (C6) 4+ Good+ Extension (C7) 4+ Good+ Left Flexion (C6) 5 Normal Extension (C7) 5 Normal Wrist Strength Wrist Manual Muscle Testing Right Flexion (C7) 4+ Good+ Extension (C6) 4+ Good+ Left Flexion (C7) 5 Normal Extension (C6) 5 Normal PT-OP-Q Treatments Start: 06/26/20 12:18 Freq: Status: Active Protocol: Document 08/18/20 08:55 SP (Rec: 08/18/20 09:47 SP [id number]) Therapeutic Exercises Supine Exercises pec stretch Supine Exercise Name HEP Side bilateral Equipment Used single on table today with MWM between positions Reps/Minutes 30x2 Other Exercises theracane self STMs Other Exercise Name discussed use and performance racquetball at wall interscapular, TS parasp Manual Therapy Treatment Soft Tissue Mobilization STMs TS Body Location paraspinals R>L T5-11, superior abdominals at ribcage , pec major Mobilization Type Myofascial Release,Strumming, Sustained Pressure,Other Intensity/Depth Moderate Body Position Prone Comments prone and supine. strumming posterior and sustained MWM, instructed self at home application Joint Mobilizations T4-T10 Joint PA Grade III Body Position Prone Comments hand PT-OP-R Modalities Start: 06/26/20 12:18 Freq: Status: Active Protocol: Document 08/09/20 09:11 SAK (Rec: 08/09/20 09:27 SAK [id number]) Hot Pack/Cold Pack Treatment Hot Pack Location thoracic spine Patient Position Hooklying Treatment Duration (minutes) 15 Patient Tolerance Good Comments s/p joint mobilization Ice Massage Location right lateral epicondyle Patient Position Sitting Treatment Duration (minutes) 3 Patient Tolerance Fair Comments patient instructed in self ice massage PT-OP-T Assessment and Plan Start: 06/26/20 12:18 Freq: Status: Active Protocol: Document 08/18/20 08:55 SP (Rec: 08/18/20 09:47 SP [id number]) Physical Therapy Assessment Goals Four Impairment postural dysfunction Oral Therapist Goal (LTG) Patient will demonstrate improvement in postural alignment at rest and during functional activities LTG Duration 08/25/20 Three Impairment weakness right UE Short Term Goal (STG) Instruct patient in HEP to address right UE weakness, patient to be independnet STG Duration 07/25/20 Shelter Goal (LTG) right UE strength 5/5 LTG Duration 08/25/20 One Impairment pain right shoulder, neck, and elbow 6/10 on pain scale Short Term Goal (STG) decrease pain by at least 50% STG Duration 07/25/20 Shelter Goal (LTG) decrease pain by at least 75% LTG Duration 08/25/20 Two Impairment activity intolerance with QuickDash shoulder disability questionnaire 32% Short Term Goal (STG) Decrease Quickdash score to no greater than 25% Shelter Goal (LTG) Improve Quickdash score to no greater than 15% with patient able to resume all usual activities including gardening LTG Duration 08/25/20 Assessment Summary Assessment Pt responded well to manual and instruction self STMs for paraspinals, pec, abdominals to support postural alignment with good response today. Next tx review HEP and application of posture with self STMs given. Physical Therapy Plan Frequency and Duration Frequency of Treatment 2x/Week Duration of Treatment 8 wks Plan of Care Start Date 06/26/20 Plan of Care End Date 08/25/20 Therapeutic Interventions Therapeutic Interventions Home Exercise Program,Joint Mobilizations,Manual Therapy, Patient/Caregiver Education, Self-Care/Home Management,Soft Tissue Mobilization,Taping, Therapeutic Activities, Therapeutic Exercises Modalities Cold Pack/Ice Massage,Electric Stimulation,Hot Packs, Infrared Therapy,Iontophoresis ,Ultrasound Next Visit Focus/Plan Next Note Type Treatment Note Next Visit Plan Feel patient would benefit from further PT with emphasis on thoracic mobilization to decrease UE pain, improve postural alignment and function
--- NOTE | 2020-08-23 14:31 | PT.OTN ---
Current Diagnoses Pain in right shoulder (08/23/20) Pain in right elbow (08/23/20) Cervicalgia (08/23/20) Abnormal posture (08/23/20) Weakness (08/23/20) Physical Therapy Treatment Note PT-OP-A Visit Information Start: 06/26/20 12:18 Freq: Status: Active Protocol: Document 08/23/20 13:45 SAK (Rec: 08/23/20 14:01 SAK [id number]) Out-Patient Physical Therapy Visit Information Visit Information Visit Start Time 13:46 Visit Stop Time 14:01 Total Visit Minutes 55 Visit Number 9 Number of BUSINESS ACCOUNT MANAGER Visits 1 Evaluation Information Evaluation Date 06/26/20 PT-OP-B Current Condition Start: 06/26/20 12:18 Freq: Status: Active Protocol: Document 06/28/20 12:57 SAK (Rec: 06/28/20 14:12 SAK [id number]) Current Condition Treatment Goals Patient/Caregiver Goals Decrease her pain and improve her ability to use her right UE for all acativities including gardening. PT-OP-C Subjective Start: 06/26/20 12:18 Freq: Status: Active Protocol: Document 08/23/20 13:45 SAK (Rec: 08/23/20 14:01 SAK [id number]) OP-PT Subjective Patient Comments Patient Comments Reports self-massage techniques taught last session helpful. Wants more mobilization of spine with wedge as with 2 sessions ago. Patient Reported Progress Improving PT-OP-F Manual Assessment Start: 06/26/20 12:18 Freq: Status: Active Protocol: Document 06/26/20 12:59 SAK (Rec: 06/26/20 13:51 SAK [id number]) Manual Assessments Soft Tissue Assessment Soft Tissue Mobility Assessment increased tightness right rhomboids, UT PT-OP-H Neuro Start: 06/26/20 12:18 Freq: Status: Active Protocol: Document 06/26/20 12:59 SAK (Rec: 06/26/20 13:51 SAK [id number]) Sensation Evaluation Gross Sensation Gross Sensation Right UE Impaired Sensation Description Paresthesia Location Details Right Upper Extremity Light Touch Intact/Normal PT-OP-J Posture/Palpation/Skin Start: 06/26/20 12:18 Freq: Status: Active Protocol: Document 06/26/20 12:59 SAK (Rec: 06/26/20 16:34 [facility] [id number]) Posture Evaluation Position Sitting Head/C-Spine Posture Forward Head T-Spine Posture Increased Kyphosis L-Spine Posture Increased Lordosis Shoulder Posture (L) Rounded,(R) Rounded Scapula Posture (L) Protracted,(R) Protracted Arm Posture (L) Internally Rotated,(R) Internally Rotated Pelvis Posture Anteriorly Tilted Palpation Assessment Location lateral epicondyle Palpation Location right lateral epicondyle Palpation Findings Tenderness Two Palpation Location rhomboids Palpation Findings Soft Tissue Tightness Palpation Details increased tightness on right One Palpation Location upper traps Palpation Findings Soft Tissue Tightness Palpation Details puneet right greater than left PT-OP-K Range of Motion Start: 06/26/20 12:18 Freq: Status: Active Protocol: Document 06/26/20 12:59 [facility] (Rec: 06/26/20 16:34 [facility] [id number]) Cervical Spine Range of Motion Cervical Spine Active Testing Position Sitting Flexion 60 Extension 48 Rotation Left 65 Rotation Right 60 Lateral Flexion Left 18 Lateral Flexion Right 30 ROM Limitations Soft Tissue Tightness Shoulder Goniometric Range of Motion Shoulder Right Shoulder ROM WFL No Testing Position sitting and supine Flexion 165 Extension 30 Abduction 160 Horizontal Abduction 90 Horizontal Adduction 35 External Rotation at 45 degrees 65 Abduction Internal Rotation Behind Back (text) T12 Left Shoulder ROM WFL Yes Shoulder ROM Limitations Shoulder ROM Limitations Soft Tissue Tightness Elbow/Forearm Range of Motion Elbow/Forearm Right Active Elbow/Forearm ROM WFL Yes Comments painful at end ranges pron and supination Left Elbow/Forearm ROM WFL Yes Elbow/Forearm ROM Limitations Elbow/Forearm ROM Limitations Soft Tissue Tightness Wrist Goniometric Range of Motion Wrist Right Wrist ROM WFL No Flexion Passive (degrees) 45 Extension Active (degrees) 55 Left Wrist ROM WFL Yes ROM Limitations Wrist Limitations of Range of Motion Soft Tissue Tightness PT-OP-M Strength Start: 06/26/20 12:18 Freq: Status: Active Protocol: Document 06/26/20 12:59 [facility]OURDAN (Rec: 06/26/20 16:34 [facility] [id number]) Scapula Strength Scapula Manual Muscle Testing puneet Elevation (C4) 4+ Good+ Adduction 4- Good- Abduction 4 Good Depression 4- Good- Shoulder Strength Shoulder Manual Muscle Testing Right Flexion 4 Good Extension 4 Good Abduction (C5) 4 Good External Rotation 4 Good Internal Rotation 4+ Good+ Left Flexion 5 Normal Extension 5 Normal Abduction (C5) 5 Normal Adduction 5 Normal External Rotation 4 Good Internal Rotation 4+ Good+ Elbow/Forearm Strength Elbow and Forearm Manual Muscle Testing Right Flexion (C6) 4+ Good+ Extension (C7) 4+ Good+ Left Flexion (C6) 5 Normal Extension (C7) 5 Normal Wrist Strength Wrist Manual Muscle Testing Right Flexion (C7) 4+ Good+ Extension (C6) 4+ Good+ Left Flexion (C7) 5 Normal Extension (C6) 5 Normal PT-OP-Q Treatments Start: 06/26/20 12:18 Freq: Status: Active Protocol: Document 08/23/20 13:45 [facility] (Rec: 08/23/20 14:01 SAK [id number]) Therapeutic Exercises Sitting Exercises postural correction Reps/Minutes 2 min Comments initially cued pelvic tilt, then reposition thoracic spine over pelvis Standing Exercises shoulder rolls Reps/Minutes 5x Comments single and d ouble. standing postural realignment Reps/Minutes 3 min Comments wall posture Other Exercises quadriped cat/cow Comments not done due to elbow pain theracane self STMs Comments review Manual Therapy Treatment Soft Tissue Mobilization STMs TS Body Location paraspinals R>L T5-11, rhomboids, UT Mobilization Type Myofascial Release,Strumming, Sustained Pressure,Other Intensity/Depth Moderate Body Position Prone Comments prone and supine. strumming posterior and sustained MWM, instructed self at home application Joint Mobilizations T4-T10 Joint PA Grade III Body Position Prone Reps/Duration 15 min Comments wedge Self-Care/Home Management Treatment Education Other Education use of 2 tennis balls or wedge for supine spinal mobilization PT-OP-R Modalities Start: 06/26/20 12:18 Freq: Status: Active Protocol: Document 08/09/20 09:11 [facility] (Rec: 08/09/20 09:27 [facility] [id number]) Hot Pack/Cold Pack Treatment Hot Pack Location thoracic spine Patient Position Hooklying Treatment Duration (minutes) 15 Patient Tolerance Good Comments s/p joint mobilization Ice Massage Location right lateral epicondyle Patient Position Sitting Treatment Duration (minutes) 3 Patient Tolerance Fair Comments patient instructed in self ice massage PT-OP-T Assessment and Plan Start: 06/26/20 12:18 Freq: Status: Active Protocol: Document 08/23/20 13:45 [facility] (Rec: 08/23/20 14:01 [facility] [id number]) Physical Therapy Assessment Goals Four Impairment postural dysfunction Correctional Supply Supervisor Goal (LTG) Patient will demonstrate improvement in postural alignment at rest and during functional activities LTG Duration 08/25/20 Three Impairment weakness right UE Short Term Goal (STG) Instruct patient in HEP to address right UE weakness, patient to be independnet STG Duration 07/25/20 Correctional Supply Supervisor Goal (LTG) right UE strength 5/5 LTG Duration 08/25/20 One Impairment pain right shoulder, neck, and elbow 6/10 on pain scale Short Term Goal (STG) decrease pain by at least 50% STG Duration 07/25/20 [facility] Goal (LTG) decrease pain by at least 75% LTG Duration 08/25/20 Two Impairment activity intolerance with QuickDash shoulder disability questionnaire 32% Short Term Goal (STG) Decrease Quickdash score to no greater than 25% Correctional Supply Supervisor Goal (LTG) Improve Quickdash score to no greater than 15% with patient able to resume all usual activities including gardening LTG Duration 08/25/20 Assessment Summary Assessment improvement in thoracic mobility, decrease in pain, improving activity tolerance. Benefits highly from thoracic mobilization, would benefit from further mobilization. Demonstrates good understanding of selfl- mobilization with hand and with tools including wedge, tennis balls, raquet balls. Physical Therapy Plan Frequency and Duration Frequency of Treatment 2x/Week Duration of Treatment 8 wks Plan of Care Start Date 06/26/20 Plan of Care End Date 08/25/20 Therapeutic Interventions Therapeutic Interventions Home Exercise Program,Joint Mobilizations,Manual Therapy, Patient/Caregiver Education, Self-Care/Home Management,Soft Tissue Mobilization,Taping, Therapeutic Activities, Therapeutic Exercises Modalities Cold Pack/Ice Massage,Electric Stimulation,Hot Packs, Infrared Therapy,Iontophoresis ,Ultrasound Next Visit Focus/Plan Next Note Type Treatment Note Next Visit Plan Feel patient would benefit from further PT with emphasis on thoracic mobilization to decrease UE pain, improve postural alignment and function
--- NOTE | 2020-08-31 16:10 | PT.OTN ---
Current Diagnoses Pain in right shoulder (08/31/20) Pain in right elbow (08/31/20) Cervicalgia (08/31/20) Abnormal posture (08/31/20) Weakness (08/31/20) Physical Therapy Treatment Note PT-OP-A Visit Information Start: 06/26/20 12:18 Freq: Status: Active Protocol: Document 08/31/20 08:12 SAK (Rec: 08/31/20 08:58 SAK [id number]) Out-Patient Physical Therapy Visit Information Visit Information Visit Type Treatment Note Visit Start Time 08:15 Visit Stop Time 09:10 Total Visit Minutes 55 Visit Number 10 Number of CLINICAL TRIAL SPECIALIST Visits 0 PT-OP-B Current Condition Start: 06/26/20 12:18 Freq: Status: Active Protocol: Document 06/28/20 12:57 SAK (Rec: 06/28/20 14:12 SAK [id number]) Current Condition Treatment Goals Patient/Caregiver Goals Decrease her pain and improve her ability to use her right UE for all acativities including gardening. PT-OP-C Subjective Start: 06/26/20 12:18 Freq: Status: Active Protocol: Document 08/31/20 08:12 SAK (Rec: 08/31/20 08:58 SAK [id number]) OP-PT Subjective Patient Comments Patient Comments Compliant to HEP, minimal pain . Feels PT very helpful. Agreeable to 1 more PT session after today, then discharge to self-management. PT-OP-F Manual Assessment Start: 06/26/20 12:18 Freq: Status: Active Protocol: Document 06/26/20 12:59 SAK (Rec: 06/26/20 13:51 SAK [id number]) Manual Assessments Soft Tissue Assessment Soft Tissue Mobility Assessment increased tightness right rhomboids, UT PT-OP-H Neuro Start: 06/26/20 12:18 Freq: Status: Active Protocol: Document 06/26/20 12:59 SAK (Rec: 06/26/20 13:51 SAK [id number]) Sensation Evaluation Gross Sensation Gross Sensation Right UE Impaired Sensation Description Paresthesia Location Details Right Upper Extremity Light Touch Intact/Normal PT-OP-J Posture/Palpation/Skin Start: 06/26/20 12:18 Freq: Status: Active Protocol: Document 06/26/20 12:59 SAK (Rec: 06/26/20 16:34 SAK [id number]) Posture Evaluation Position Sitting Head/C-Spine Posture Forward Head T-Spine Posture Increased Kyphosis L-Spine Posture Increased Lordosis Shoulder Posture (L) Rounded,(R) Rounded Scapula Posture (L) Protracted,(R) Protracted Arm Posture (L) Internally Rotated,(R) Internally Rotated Pelvis Posture Anteriorly Tilted Palpation Assessment Location lateral epicondyle Palpation Location right lateral epicondyle Palpation Findings Tenderness Two Palpation Location rhomboids Palpation Findings Soft Tissue Tightness Palpation Details increased tightness on right One Palpation Location upper traps Palpation Findings Soft Tissue Tightness Palpation Details puneet right greater than left PT-OP-K Range of Motion Start: 06/26/20 12:18 Freq: Status: Active Protocol: Document 06/26/20 12:59 JOURDAN (Rec: 06/26/20 16:34 [facility] [id number]) Cervical Spine Range of Motion Cervical Spine Active Testing Position Sitting Flexion 60 Extension 48 Rotation Left 65 Rotation Right 60 Lateral Flexion Left 18 Lateral Flexion Right 30 ROM Limitations Soft Tissue Tightness Shoulder Goniometric Range of Motion Shoulder Right Shoulder ROM WFL No Testing Position sitting and supine Flexion 165 Extension 30 Abduction 160 Horizontal Abduction 90 Horizontal Adduction 35 External Rotation at 45 degrees 65 Abduction Internal Rotation Behind Back (text) T12 Left Shoulder ROM WFL Yes Shoulder ROM Limitations Shoulder ROM Limitations Soft Tissue Tightness Elbow/Forearm Range of Motion Elbow/Forearm Right Active Elbow/Forearm ROM WFL Yes Comments painful at end ranges pron and supination Left Elbow/Forearm ROM WFL Yes Elbow/Forearm ROM Limitations Elbow/Forearm ROM Limitations Soft Tissue Tightness Wrist Goniometric Range of Motion Wrist Right Wrist ROM WFL No Flexion Passive (degrees) 45 Extension Active (degrees) 55 Left Wrist ROM WFL Yes ROM Limitations Wrist Limitations of Range of Motion Soft Tissue Tightness PT-OP-M Strength Start: 06/26/20 12:18 Freq: Status: Active Protocol: Document 06/26/20 12:59 JOURDAN (Rec: 06/26/20 16:34 [facility] [id number]) Scapula Strength Scapula Manual Muscle Testing puneet Elevation (C4) 4+ Good+ Adduction 4- Good- Abduction 4 Good Depression 4- Good- Shoulder Strength Shoulder Manual Muscle Testing Right Flexion 4 Good Extension 4 Good Abduction (C5) 4 Good External Rotation 4 Good Internal Rotation 4+ Good+ Left Flexion 5 Normal Extension 5 Normal Abduction (C5) 5 Normal Adduction 5 Normal External Rotation 4 Good Internal Rotation 4+ Good+ Elbow/Forearm Strength Elbow and Forearm Manual Muscle Testing Right Flexion (C6) 4+ Good+ Extension (C7) 4+ Good+ Left Flexion (C6) 5 Normal Extension (C7) 5 Normal Wrist Strength Wrist Manual Muscle Testing Right Flexion (C7) 4+ Good+ Extension (C6) 4+ Good+ Left Flexion (C7) 5 Normal Extension (C6) 5 Normal PT-OP-Q Treatments Start: 06/26/20 12:18 Freq: Status: Active Protocol: Document 08/31/20 08:12 [facility] (Rec: 08/31/20 08:58 [facility] [id number]) Therapeutic Exercises Standing Exercises wall posture Standing Exercise Name supine on floor, to hard on wall Reps/Minutes 3x5 sec hold Comments good upper abdominal facilitation, chin tuck Manual Therapy Treatment Soft Tissue Mobilization STMs TS Body Location paraspinals R>L T5-11, rhomboids, UT Mobilization Type Myofascial Release,Strumming, Sustained Pressure,Other Intensity/Depth Moderate Body Position Prone Comments prone and supine. strumming posterior and sustained MWM, instructed self at home application Joint Mobilizations T4-T10 Joint PA Grade III Body Position Prone Reps/Duration 15 min Comments wedge PT-OP-R Modalities Start: 06/26/20 12:18 Freq: Status: Active Protocol: Document 08/31/20 08:12 [facility] (Rec: 08/31/20 16:10 [facility] [id number]) Hot Pack/Cold Pack Treatment Hot Pack Location thoracic spine Patient Position Hooklying Treatment Duration (minutes) 15 Patient Tolerance Good Comments s/p joint mobilization PT-OP-T Assessment and Plan Start: 06/26/20 12:18 Freq: Status: Active Protocol: Document 08/31/20 08:12 [facility] (Rec: 08/31/20 08:58 [facility] [id number]) Physical Therapy Assessment Goals Four Impairment postural dysfunction Siderographer Goal (LTG) Patient will demonstrate improvement in postural alignment at rest and during functional activities 08/31/20: improvement, able to verbalize, still has some difficulty without verbal and manual cues LTG Duration 09/15/20 Three Impairment weakness right UE Short Term Goal (STG) Instruct patient in HEP to address right UE weakness, patient to be independnet STG Duration goal met [facility] Goal (LTG) right UE strength 09/0608/31/20: all achieved except shoulder external rotation 08/07 LTG Duration 08/25/20 One Impairment pain right shoulder, neck, and elbow 6/10 on pain scale Short Term Goal (STG) decrease pain by at least 50% STG Duration goal met [facility] Goal (LTG) decrease pain by at least 75% 08/31/20: goal met LTG Duration 09/15/20 Two Impairment activity intolerance with QuickDash shoulder disability questionnaire 32% Short Term Goal (STG) Decrease Quickdash score to no greater than 25% STG Duration goal met Siderographer Goal (LTG) Improve Quickdash score to no greater than 15% with patient able to resume all usual activities including gardening LTG Duration 09/15/20 Assessment Summary Assessment Good goal progress, most benefit achieved recently with thoracic mobilization and postural re-education and strengthening. Recommend 1 further PT session to further mobilize spine, review self- mobilization and HEP, then plan discharge to patient self -management. Physical Therapy Plan Frequency and Duration Frequency of Treatment 2x/Week Duration of Treatment 8 wks Plan of Care Start Date 06/26/20 Plan of Care End Date 08/25/20 Therapeutic Interventions Therapeutic Interventions Home Exercise Program,Joint Mobilizations,Manual Therapy, Patient/Caregiver Education, Self-Care/Home Management,Soft Tissue Mobilization,Taping, Therapeutic Activities, Therapeutic Exercises Modalities Cold Pack/Ice Massage,Electric Stimulation,Hot Packs, Infrared Therapy,Iontophoresis ,Ultrasound Next Visit Focus/Plan Next Note Type Treatment Note Next Visit Plan Thoracic mobilization, postural correction ther ex, HEP review, review of self- mobilization, then discharge to independent self-care.
--- NOTE | 2020-08-31 16:13 | PT.OTRE ---
Current Diagnoses Pain in right shoulder (08/31/20) Pain in right elbow (08/31/20) Cervicalgia (08/31/20) Abnormal posture (08/31/20) Weakness (08/31/20) Past Medical History (Last Reviewed 08/02/20 @ 14:30 by Carlo Gutierrez DO) Advance care planning Chicken pox (~1954) Elbow pain Hyperlipidemia LDL goal <100 Hypothyroidism (~2014) Laryngeal cyst Lateral epicondylitis of right elbow Measles (~1952) Neck pain on right side Right shoulder pain Shoulder pain (~1999) Surgical History (Last Reviewed 08/02/20 @ 14:30 by Carlo Gutierrez DO) Anesthesia History of hysterectomy (~1995) History of tonsillectomy (~1954) History of tubal ligation (~1987) Visit Care Team Role Provider Type [place] Attending Provider Advanced Certified Fraud Examiner Primary Care Provider Referring Provider Specialty: [facility] Address: [address] [place] [address] Email: [email or web address] Physical Therapy Re-Evaluation PT-OP-A Visit Information Start: 06/26/20 12:18 Freq: Status: Active Protocol: Document 08/31/20 08:12 SAK (Rec: 08/31/20 08:58 SAK [id number]) Out-Patient Physical Therapy Visit Information Visit Information Visit Type Treatment Note Visit Start Time 08:15 Visit Stop Time 09:10 Total Visit Minutes 55 Visit Number 10 Number of PROMOTION WRITER Visits 0 PT-OP-B Current Condition Start: 06/26/20 12:18 Freq: Status: Active Protocol: Document 06/28/20 12:57 SAK (Rec: 06/28/20 14:12 SAK [id number]) Current Condition Treatment Goals Patient/Caregiver Goals Decrease her pain and improve her ability to use her right UE for all acativities including gardening. PT-OP-C Subjective Start: 06/26/20 12:18 Freq: Status: Active Protocol: Document 08/31/20 08:12 SAK (Rec: 08/31/20 08:58 SAK [id number]) OP-PT Subjective Patient Comments Patient Comments Compliant to HEP, minimal pain . Feels PT very helpful. Agreeable to 1 more PT session after today, then discharge to self-management. PT-OP-F Manual Assessment Start: 06/26/20 12:18 Freq: Status: Active Protocol: Document 06/26/20 12:59 [facility] (Rec: 06/26/20 13:51 [facility] [id number]) Manual Assessments Soft Tissue Assessment Soft Tissue Mobility Assessment increased tightness right rhomboids, UT PT-OP-H Neuro Start: 06/26/20 12:18 Freq: Status: Active Protocol: Document 06/26/20 12:59 [facility] (Rec: 06/26/20 13:51 [facility] [id number]) Sensation Evaluation Gross Sensation Gross Sensation Right UE Impaired Sensation Description Paresthesia Location Details Right Upper Extremity Light Touch Intact/Normal PT-OP-J Posture/Palpation/Skin Start: 06/26/20 12:18 Freq: Status: Active Protocol: Document 06/26/20 12:59 [facility] (Rec: 06/26/20 16:34 [facility] [id number]) Posture Evaluation Position Sitting Head/C-Spine Posture Forward Head T-Spine Posture Increased Kyphosis L-Spine Posture Increased Lordosis Shoulder Posture (L) Rounded,(R) Rounded Scapula Posture (L) Protracted,(R) Protracted Arm Posture (L) Internally Rotated,(R) Internally Rotated Pelvis Posture Anteriorly Tilted Palpation Assessment Location lateral epicondyle Palpation Location right lateral epicondyle Palpation Findings Tenderness Two Palpation Location rhomboids Palpation Findings Soft Tissue Tightness Palpation Details increased tightness on right One Palpation Location upper traps Palpation Findings Soft Tissue Tightness Palpation Details puneet right greater than left PT-OP-K Range of Motion Start: 06/26/20 12:18 Freq: Status: Active Protocol: Document 06/26/20 12:59 [facility] (Rec: 06/26/20 16:34 [facility] [id number]) Cervical Spine Range of Motion Cervical Spine Active Testing Position Sitting Flexion 60 Extension 48 Rotation Left 65 Rotation Right 60 Lateral Flexion Left 18 Lateral Flexion Right 30 ROM Limitations Soft Tissue Tightness Shoulder Goniometric Range of Motion Shoulder Measured in Degrees Right Shoulder ROM WFL No Testing Position sitting and supine Flexion 165 Extension 30 Abduction 160 Horizontal Abduction 90 Horizontal Adduction 35 External Rotation at 45 degrees 65 Abduction Internal Rotation Behind Back (text) T12 Left Shoulder ROM WFL Yes Shoulder ROM Limitations Shoulder ROM Limitations Soft Tissue Tightness Elbow/Forearm Range of Motion Elbow/Forearm Measured in Degrees Right Active Elbow/Forearm ROM WFL Yes Comments painful at end ranges pron and supination Left Elbow/Forearm ROM WFL Yes Elbow/Forearm ROM Limitations Elbow/Forearm ROM Limitations Soft Tissue Tightness Wrist Goniometric Range of Motion Wrist Measured in Degrees Right Wrist ROM WFL No Flexion Passive (degrees) 45 Extension Active (degrees) 55 Left Wrist ROM WFL Yes ROM Limitations Wrist Limitations of Range of Motion Soft Tissue Tightness PT-OP-M Strength Start: 06/26/20 12:18 Freq: Status: Active Protocol: Document 06/26/20 12:59 [facility] (Rec: 06/26/20 16:34 [facility] [id number]) Scapula Strength Scapula Manual Muscle Testing puneet Elevation (C4) 4+ Good+ Adduction 4- Good- Abduction 4 Good Depression 4- Good- Shoulder Strength Shoulder Manual Muscle Testing Right Flexion 4 Good Extension 4 Good Abduction (C5) 4 Good External Rotation 4 Good Internal Rotation 4+ Good+ Left Flexion 5 Normal Extension 5 Normal Abduction (C5) 5 Normal Adduction 5 Normal External Rotation 4 Good Internal Rotation 4+ Good+ Elbow/Forearm Strength Elbow and Forearm Manual Muscle Testing Right Flexion (C6) 4+ Good+ Extension (C7) 4+ Good+ Left Flexion (C6) 5 Normal Extension (C7) 5 Normal Wrist Strength Wrist Manual Muscle Testing Right Flexion (C7) 4+ Good+ Extension (C6) 4+ Good+ Left Flexion (C7) 5 Normal Extension (C6) 5 Normal PT-OP-Q Treatments Start: 06/26/20 12:18 Freq: Status: Active Protocol: Document 08/31/20 08:12 [facility] (Rec: 08/31/20 08:58 [facility] [id number]) Therapeutic Exercises Standing Exercises wall posture Standing Exercise Name supine on floor, to hard on wall Reps/Minutes 3x5 sec hold Comments good upper abdominal facilitation, chin tuck Manual Therapy Treatment Soft Tissue Mobilization STMs TS Body Location paraspinals R>L T5-11, rhomboids, UT Mobilization Type Myofascial Release,Strumming, Sustained Pressure,Other Intensity/Depth Moderate Body Position Prone Comments prone and supine. strumming posterior and sustained MWM, instructed self at home application Joint Mobilizations T4-T10 Joint PA Grade III Body Position Prone Reps/Duration 15 min Comments wedge PT-OP-R Modalities Start: 06/26/20 12:18 Freq: Status: Active Protocol: Document 08/31/20 08:12 [facility] (Rec: 08/31/20 16:10 [facility] [id number]) Hot Pack/Cold Pack Treatment Hot Pack Location thoracic spine Patient Position Hooklying Treatment Duration (minutes) 15 Patient Tolerance Good Comments s/p joint mobilization PT-OP-T Assessment and Plan Start: 06/26/20 12:18 Freq: Status: Active Protocol: Document 08/31/20 08:12 [facility] (Rec: 08/31/20 08:58 [facility] [id number]) Physical Therapy Assessment Goals Four Impairment postural dysfunction Residential Goal (LTG) Patient will demonstrate improvement in postural alignment at rest and during functional activities 08/31/20: improvement, able to verbalize, still has some difficulty without verbal and manual cues LTG Duration 09/15/20 Three Impairment weakness right UE Short Term Goal (STG) Instruct patient in HEP to address right UE weakness, patient to be independnet STG Duration goal met Cosmetic Surgeon Goal (LTG) right UE strength 09/0608/31/20: all achieved except shoulder external rotation 08/07 LTG Duration 09/15/20 One Impairment pain right shoulder, neck, and elbow 6/10 on pain scale Short Term Goal (STG) decrease pain by at least 50% STG Duration goal met Cosmetic Surgeon Goal (LTG) decrease pain by at least 75% 08/31/20: goal met LTG Duration 09/15/20 Two Impairment activity intolerance with QuickDash shoulder disability questionnaire 32% Short Term Goal (STG) Decrease Quickdash score to no greater than 25% STG Duration goal met Cosmetic Surgeon Goal (LTG) Improve Quickdash score to no greater than 15% with patient able to resume all usual activities including gardening LTG Duration 09/15/20 Assessment Summary Assessment Good goal progress, most benefit achieved recently with thoracic mobilization and postural re-education and strengthening. Recommend 1 further PT session to further mobilize spine, review self- mobilization and HEP, then plan discharge to patient self -management. Physical Therapy Plan Frequency and Duration Frequency of Treatment 1x/Week Duration of Treatment 2 wks Plan of Care Start Date 08/31/20 Plan of Care End Date 09/15/20 Therapeutic Interventions Therapeutic Interventions Home Exercise Program,Joint Mobilizations,Manual Therapy, Patient/Caregiver Education, Self-Care/Home Management,Soft Tissue Mobilization,Taping, Therapeutic Activities, Therapeutic Exercises Modalities Cold Pack/Ice Massage,Electric Stimulation,Hot Packs, Infrared Therapy,Iontophoresis ,Ultrasound Next Visit Focus/Plan Next Note Type Treatment Note Next Visit Plan Thoracic mobilization, postural correction ther ex, HEP review, review of self- mobilization, then discharge to independent self-care.
--- NOTE | 2020-08-31 16:13 | PT.OPPOC ---
Physical, Occupational & Speech Therapy At [facility] Current Diagnoses Pain in right shoulder (08/31/20) Pain in right elbow (08/31/20) Cervicalgia (08/31/20) Abnormal posture (08/31/20) Weakness (08/31/20) Visit Care Team Role Provider Type [place] Attending Provider Advanced Infertility Medical Assistant Primary Care Provider Referring Provider Specialty: Family Practice Address: [address] [place] [address], [facility] Email: [email or web address] Plan Of Care PT-OP-T Assessment and Plan Start: 06/26/20 12:18 Freq: Status: Active Protocol: Document 08/31/20 08:12 SAK (Rec: 08/31/20 08:58 SAK [id number]) Physical Therapy Assessment Goals Four Impairment postural dysfunction Detention Goal (LTG) Patient will demonstrate improvement in postural alignment at rest and during functional activities 08/31/20: improvement, able to verbalize, still has some difficulty without verbal and manual cues LTG Duration 09/15/20 Three Impairment weakness right UE Short Term Goal (STG) Instruct patient in HEP to address right UE weakness, patient to be independnet STG Duration goal met Detention Goal (LTG) right UE strength 09/0608/31/20: all achieved except shoulder external rotation 08/07 LTG Duration 09/15/20 One Impairment pain right shoulder, neck, and elbow 6/10 on pain scale Short Term Goal (STG) decrease pain by at least 50% STG Duration goal met Detention Goal (LTG) decrease pain by at least 75% 08/31/20: goal met LTG Duration 09/15/20 Two Impairment activity intolerance with QuickDash shoulder disability questionnaire 32% Short Term Goal (STG) Decrease Quickdash score to no greater than 25% STG Duration goal met Construction Management Instructor Goal (LTG) Improve Quickdash score to no greater than 15% with patient able to resume all usual activities including gardening LTG Duration 09/15/20 Assessment Summary Assessment Good goal progress, most benefit achieved recently with thoracic mobilization and postural re-education and strengthening. Recommend 1 further PT session to further mobilize spine, review self- mobilization and HEP, then plan discharge to patient self -management. Physical Therapy Plan Frequency and Duration Frequency of Treatment 1x/Week Duration of Treatment 2 wks Plan of Care Start Date 08/31/20 Plan of Care End Date 09/15/20 Therapeutic Interventions Therapeutic Interventions Home Exercise Program,Joint Mobilizations,Manual Therapy, Patient/Caregiver Education, Self-Care/Home Management,Soft Tissue Mobilization,Taping, Therapeutic Activities, Therapeutic Exercises Modalities Cold Pack/Ice Massage,Electric Stimulation,Hot Packs, Infrared Therapy,Iontophoresis ,Ultrasound Next Visit Focus/Plan Next Note Type Treatment Note Next Visit Plan Thoracic mobilization, postural correction ther ex, HEP review, review of self- mobilization, then discharge to independent self-care. Plan of Care Dates Plan of Care Start Date 08/31/20 Plan of Care End Date 09/15/20 Electronically Signed by: Atiya Farley, PT 08/31/20 2172 Please Sign and Return: I have reviewed this Plan of Care and certify that the skilled therapy services above are required to meet the patient?s needs. Physician Signature Date Printed Name and Credentials Clinical Instructor Signature Printed Name and Credentials
--- NOTE | 2020-08-31 16:13 | PT.OPPOC ---
Physical, Occupational & Speech Therapy At [facility] Current Diagnoses Pain in right shoulder (08/31/20) Pain in right elbow (08/31/20) Cervicalgia (08/31/20) Abnormal posture (08/31/20) Weakness (08/31/20) Visit Care Team Role Provider Type CAMDEN Marion Attending Provider Advanced Lead Trainer Primary Care Provider Referring Provider Specialty: Family Practice Address: [address] [place] [address], [facility] Email: [email or web address] Plan Of Care PT-OP-T Assessment and Plan Start: 06/26/20 12:18 Freq: Status: Active Protocol: Document 08/31/20 08:12 SAK (Rec: 08/31/20 08:58 SAK [id number]) Physical Therapy Assessment Goals Four Impairment postural dysfunction [facility]ci Goal (LTG) Patient will demonstrate improvement in postural alignment at rest and during functional activities 08/31/20: improvement, able to verbalize, still has some difficulty without verbal and manual cues LTG Duration 09/15/20 Three Impairment weakness right UE Short Term Goal (STG) Instruct patient in HEP to address right UE weakness, patient to be independnet STG Duration goal met [facility]ci Goal (LTG) right UE strength 09/0608/31/20: all achieved except shoulder external rotation 08/07 LTG Duration 09/15/20 One Impairment pain right shoulder, neck, and elbow 6/10 on pain scale Short Term Goal (STG) decrease pain by at least 50% STG Duration goal met [facility]ci Goal (LTG) decrease pain by at least 75% 08/31/20: goal met LTG Duration 09/15/20 Two Impairment activity intolerance with QuickDash shoulder disability questionnaire 32% Short Term Goal (STG) Decrease Quickdash score to no greater than 25% STG Duration goal met Repair Order Clerk Goal (LTG) Improve Quickdash score to no greater than 15% with patient able to resume all usual activities including gardening LTG Duration 09/15/20 Assessment Summary Assessment Good goal progress, most benefit achieved recently with thoracic mobilization and postural re-education and strengthening. Recommend 1 further PT session to further mobilize spine, review self- mobilization and HEP, then plan discharge to patient self -management. Physical Therapy Plan Frequency and Duration Frequency of Treatment 1x/Week Duration of Treatment 2 wks Plan of Care Start Date 08/31/20 Plan of Care End Date 09/15/20 Therapeutic Interventions Therapeutic Interventions Home Exercise Program,Joint Mobilizations,Manual Therapy, Patient/Caregiver Education, Self-Care/Home Management,Soft Tissue Mobilization,Taping, Therapeutic Activities, Therapeutic Exercises Modalities Cold Pack/Ice Massage,Electric Stimulation,Hot Packs, Infrared Therapy,Iontophoresis ,Ultrasound Next Visit Focus/Plan Next Note Type Treatment Note Next Visit Plan Thoracic mobilization, postural correction ther ex, HEP review, review of self- mobilization, then discharge to independent self-care. Plan of Care Dates Plan of Care Start Date 08/31/20 Plan of Care End Date 09/15/20 Electronically Signed by: Atiya Farley, PT 08/31/20 [id number] Please Sign and Return: I have reviewed this Plan of Care and certify that the skilled therapy services above are required to meet the patient?s needs. Physician Signature Date Printed Name and Credentials Clinical Instructor Signature Printed Name and Credentials
--- NOTE | 2020-09-07 11:38 | PT.OTN ---
Current Diagnoses Pain in right shoulder (09/07/20) Pain in right elbow (09/07/20) Cervicalgia (09/07/20) Abnormal posture (09/07/20) Weakness (09/07/20) Physical Therapy Treatment Note PT-OP-A Visit Information Start: 06/26/20 12:18 Freq: Status: Active Protocol: Document 09/07/20 09:01 SAK (Rec: 09/07/20 09:22 SAK [id number]) Out-Patient Physical Therapy Visit Information Visit Information Visit Type Treatment Note Visit Start Time 09:02 Visit Stop Time 09:57 Total Visit Minutes 55 Visit Number 11 Number of SEPARATOR INSERTER Visits 0 PT-OP-B Current Condition Start: 06/26/20 12:18 Freq: Status: Active Protocol: Document 06/28/20 12:57 SAK (Rec: 06/28/20 14:12 SAK [id number]) Current Condition Treatment Goals Patient/Caregiver Goals Decrease her pain and improve her ability to use her right UE for all acativities including gardening. PT-OP-C Subjective Start: 06/26/20 12:18 Freq: Status: Active Protocol: Document 08/31/20 08:12 SAK (Rec: 08/31/20 08:58 SAK [id number]) OP-PT Subjective Patient Comments Patient Comments Compliant to HEP, minimal pain . Feels PT very helpful. Agreeable to 1 more PT session after today, then discharge to self-management. PT-OP-F Manual Assessment Start: 06/26/20 12:18 Freq: Status: Active Protocol: Document 06/26/20 12:59 SAK (Rec: 06/26/20 13:51 SAK [id number]) Manual Assessments Soft Tissue Assessment Soft Tissue Mobility Assessment increased tightness right rhomboids, UT PT-OP-H Neuro Start: 06/26/20 12:18 Freq: Status: Active Protocol: Document 06/26/20 12:59 SAK (Rec: 06/26/20 13:51 SAK [id number]) Sensation Evaluation Gross Sensation Gross Sensation Right UE Impaired Sensation Description Paresthesia Location Details Right Upper Extremity Light Touch Intact/Normal PT-OP-J Posture/Palpation/Skin Start: 06/26/20 12:18 Freq: Status: Active Protocol: Document 06/26/20 12:59 SAK (Rec: 06/26/20 16:34 SAK [id number]) Posture Evaluation Position Sitting Head/C-Spine Posture Forward Head T-Spine Posture Increased Kyphosis L-Spine Posture Increased Lordosis Shoulder Posture (L) Rounded,(R) Rounded Scapula Posture (L) Protracted,(R) Protracted Arm Posture (L) Internally Rotated,(R) Internally Rotated Pelvis Posture Anteriorly Tilted Palpation Assessment Location lateral epicondyle Palpation Location right lateral epicondyle Palpation Findings Tenderness Two Palpation Location rhomboids Palpation Findings Soft Tissue Tightness Palpation Details increased tightness on right One Palpation Location upper traps Palpation Findings Soft Tissue Tightness Palpation Details puneet right greater than left PT-OP-K Range of Motion Start: 06/26/20 12:18 Freq: Status: Active Protocol: Document 06/26/20 12:59 JOURDAN (Rec: 06/26/20 16:34 [facility] [id number]) Cervical Spine Range of Motion Cervical Spine Active Testing Position Sitting Flexion 60 Extension 48 Rotation Left 65 Rotation Right 60 Lateral Flexion Left 18 Lateral Flexion Right 30 ROM Limitations Soft Tissue Tightness Shoulder Goniometric Range of Motion Shoulder Right Shoulder ROM WFL No Testing Position sitting and supine Flexion 165 Extension 30 Abduction 160 Horizontal Abduction 90 Horizontal Adduction 35 External Rotation at 45 degrees 65 Abduction Internal Rotation Behind Back (text) T12 Left Shoulder ROM WFL Yes Shoulder ROM Limitations Shoulder ROM Limitations Soft Tissue Tightness Elbow/Forearm Range of Motion Elbow/Forearm Right Active Elbow/Forearm ROM WFL Yes Comments painful at end ranges pron and supination Left Elbow/Forearm ROM WFL Yes Elbow/Forearm ROM Limitations Elbow/Forearm ROM Limitations Soft Tissue Tightness Wrist Goniometric Range of Motion Wrist Right Wrist ROM WFL No Flexion Passive (degrees) 45 Extension Active (degrees) 55 Left Wrist ROM WFL Yes ROM Limitations Wrist Limitations of Range of Motion Soft Tissue Tightness PT-OP-M Strength Start: 06/26/20 12:18 Freq: Status: Active Protocol: Document 06/26/20 12:59 JOURDAN (Rec: 06/26/20 16:34 [facility] [id number]) Scapula Strength Scapula Manual Muscle Testing puneet Elevation (C4) 4+ Good+ Adduction 4- Good- Abduction 4 Good Depression 4- Good- Shoulder Strength Shoulder Manual Muscle Testing Right Flexion 4 Good Extension 4 Good Abduction (C5) 4 Good External Rotation 4 Good Internal Rotation 4+ Good+ Left Flexion 5 Normal Extension 5 Normal Abduction (C5) 5 Normal Adduction 5 Normal External Rotation 4 Good Internal Rotation 4+ Good+ Elbow/Forearm Strength Elbow and Forearm Manual Muscle Testing Right Flexion (C6) 4+ Good+ Extension (C7) 4+ Good+ Left Flexion (C6) 5 Normal Extension (C7) 5 Normal Wrist Strength Wrist Manual Muscle Testing Right Flexion (C7) 4+ Good+ Extension (C6) 4+ Good+ Left Flexion (C7) 5 Normal Extension (C6) 5 Normal PT-OP-Q Treatments Start: 06/26/20 12:18 Freq: Status: Active Protocol: Document 09/07/20 09:01 [facility] (Rec: 09/07/20 09:22 [facility] [id number]) Therapeutic Exercises Sidelying Exercises open book Sidelying Exercise Name HEP Side bilateral Reps/Minutes 5x10 Comments with deep breath at endrange, manual facil for segmental movement, thoracic Standing Exercises wall posture Standing Exercise Name supine on floor, to hard on wall Reps/Minutes 3x5 sec hold Comments good upper abdominal facilitation, chin tuck Other Exercises prone press up Reps/Minutes segmental Comments manual facilitation quadriped cat/cow Reps/Minutes 5x2 Comments second 5 reps with increased extension focus thoracic spine and flex l/s Manual Therapy Treatment Soft Tissue Mobilization STMs TS Body Location paraspinals R>L T5-11, rhomboids, UT Mobilization Type Myofascial Release,Strumming, Sustained Pressure,Other Intensity/Depth Moderate Body Position Prone Comments prone and supine. strumming posterior and sustained MWM, instructed self at home application Joint Mobilizations T4-T10 Joint PA Grade III Body Position Prone Reps/Duration 15 min Comments wedge PT-OP-R Modalities Start: 06/26/20 12:18 Freq: Status: Active Protocol: Document 09/07/20 09:01 [facility] (Rec: 09/07/20 09:22 [facility] [id number]) Hot Pack/Cold Pack Treatment Hot Pack Location thoracic spine Patient Position Hooklying Treatment Duration (minutes) 15 Patient Tolerance Good Comments s/p joint mobilization PT-OP-T Assessment and Plan Start: 06/26/20 12:18 Freq: Status: Active Protocol: Document 09/07/20 09:01 [facility] (Rec: 09/07/20 09:22 [facility] [id number]) Physical Therapy Assessment Goals Four Impairment postural dysfunction Early Years Teacher Goal (LTG) Patient will demonstrate improvement in postural alignment at rest and during functional activities 08/31/20: improvement, able to verbalize, still has some difficulty without verbal and manual cues 09/07/20: improving postural awareness LTG Duration goal met Three Impairment weakness right UE Short Term Goal (STG) Instruct patient in HEP to address right UE weakness, patient to be independnet STG Duration goal met [facility]ci Goal (LTG) right UE strength 09/0608/31/20: all achieved except shoulder external rotation 08/0709/07/20: goal met LTG Duration 09/15/20 One Impairment pain right shoulder, neck, and elbow 10/12 on pain scale Short Term Goal (STG) decrease pain by at least 50% STG Duration goal met Early Years Teacher Goal (LTG) decrease pain by at least 75% 08/31/20: goal met LTG Duration goal met Two Impairment activity intolerance with QuickDash shoulder disability questionnaire 32% Short Term Goal (STG) Decrease Quickdash score to no greater than 25% STG Duration goal met Early Years Teacher Goal (LTG) Improve Quickdash score to no greater than 15% with patient able to resume all usual activities including gardening 09/07/20: goal met, still some occasional pain and soreness LTG Duration 09/07/20 Assessment Summary Assessment Patient demonstrating improved postural awareness, is independent with foam roller and use of tennis balls plus HEP for mobilization of thoracic spine and core stabilization, plus ice and massage for elbow pain. REady for discharge from PT at this time. REcommend she follow-up with PT in approximately 3-4 months to assess progress with HEP and self-care and upgrade treatment and HEP as indicated. Physical Therapy Plan Frequency and Duration Frequency of Treatment 1x/Week Duration of Treatment 2 wks Plan of Care Start Date 08/31/20 Plan of Care End Date 09/15/20 Therapeutic Interventions Therapeutic Interventions Home Exercise Program,Joint Mobilizations,Manual Therapy, Patient/Caregiver Education, Self-Care/Home Management,Soft Tissue Mobilization,Taping, Therapeutic Activities, Therapeutic Exercises Modalities Cold Pack/Ice Massage,Electric Stimulation,Hot Packs, Infrared Therapy,Iontophoresis ,Ultrasound Discharge Physical Therapy Discharge Reasons Goals Met Next Visit Focus/Plan Next Visit Plan discharge from PT
== END 2020-09-07 13:06 | disposition home or self-care (01) ==
LOC: PHYS 09:00
PROVIDERS: PCP Nurse Practitioner; Referring Provider Nurse Practitioner; Visit Provider Nurse Practitioner
DX: M25.511 Pain in right shoulder (principal); M54.2 Cervicalgia; M25.521 Pain in right elbow; R29.3 Abnormal posture; R53.1 Weakness
CPT/HCPCS: 97010; 97110; 97140; 97162; 97535

== ENCOUNTER 2021-02-06 13:00 | Outpatient (RCR) | payer MEDICARE, OTHER, SELFPAY ==
--- NOTE | 2021-01-16 17:03 | PT.OIE ---
Current Diagnoses Dorsalgia, unspecified (01/16/21) Abnormal posture (01/16/21) Weakness (01/16/21) Past Medical History (Last Reviewed 08/02/20 @ 14:30 by Carlo Gutierrez DO) Advance care planning Chicken pox (~1954) Elbow pain History of hysterectomy (~1995) History of tonsillectomy (~1954) History of tubal ligation (~1987) Hyperlipidemia LDL goal <100 Hypothyroidism (~2014) Laryngeal cyst Lateral epicondylitis of right elbow Measles (~1952) Neck pain on right side Right shoulder pain Shoulder pain (~1999) Past Surgical History (Last Reviewed 08/02/20 @ 14:30 by Carlo Gutierrez DO) Anesthesia History of hysterectomy (~1995) History of tonsillectomy (~1954) History of tubal ligation (~1987) Visit Care Team Role Provider Type CAMDEN Marion Attending Provider Advanced Full Stack Php Developer Primary Care Provider Referring Provider Specialty: [facility] Address: [address] [place] [address] Email: [email or web address] Physical Therapy Initial Evaluation PT-OP-A Visit Information Start: 01/15/21 16:16 Freq: Status: Active Protocol: Document 01/16/21 13:45 SAK (Rec: 01/16/21 14:31 SAK [id number]) Out-Patient Physical Therapy Visit Information Visit Information Visit Type Initial Evaluation Visit Start Time 13:46 Visit Stop Time 14:41 Total Visit Minutes 55 Visit Number 1 Evaluation Information Evaluation Date 01/16/21 PT-OP-B Current Condition Start: 01/15/21 16:16 Freq: Status: Active Protocol: Document 01/16/21 13:45 SAK (Rec: 01/16/21 14:31 SAK [id number]) Current Condition History of Current Condition Onset Date May 2020 Current Complaints Reports chronic right shoulder girdle and upper back pain History of Current Condition 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 Has had PT multiple times over the years, most recently approximately 3 months ago; states she found it very helpful but may be ready to progress her exercise program and feels stiffness and pain in right scapular area and thoracic spine. Reports much more awareness with her posture and better able to correct but not always sure if doing correctly. Using raquet ball for self massage as instructed. Prior Treatments and Tests Physical therapy previously helpful Treatment Goals Patient/Caregiver Goals Decrease pain, improve posture and strength, and ability to do all usual activities Prior Functional Status Baseline Function- ADL's Independent Baseline Function- Mobility Independent Baseline Function- Gait independent Baseline Function- Work/School retired Baseline Function- Recreation/Hobbies no limitations Current Functional Impairments (Reported) Functional Limitations- ADL's some paion Functional Limitations- Mobility/Gait no limitations Functional Limitations- Work/School retired Functional Limitations- Recreation/ pain with gardening. Hobbies PT-OP-C Subjective Start: 01/15/21 16:16 Freq: Status: Active Protocol: Document 01/16/21 13:45 [facility] (Rec: 01/16/21 16:43 [facility] [id number]) Patient Questionnaires Oswestry Low Back Index Oswestry Score 4 OP-PT Pain Assessment Location rhomboids left Intensity 2 Scale Used Numeric (0 - 10) Description Aching,Pulling,Tightness Pain Aggravating Factors Bending,Lifting Pain Alleviating Factors Heat,Inactivity thoracic spine Intensity 2 Scale Used Numeric (0 - 10) Description Aching,Pulling,Tightness PT-OP-F Manual Assessment Start: 01/15/21 16:16 Freq: Status: Active Protocol: Document 01/16/21 13:45 [facility] (Rec: 01/16/21 16:58 [facility] [id number]) Manual Assessments Soft Tissue Assessment Soft Tissue Mobility Assessment Increased muscular tightness bilateral UT and rhomboids left greater than right Joint Mobility Assessment Joint Mobility Assessment decreased mid thoracic PA mobility from T3-T10 PT-OP-H Neuro Start: 01/15/21 16:16 Freq: Status: Active Protocol: Document 01/16/21 13:45 [facility] (Rec: 01/16/21 16:58 [facility] [id number]) Sensation Evaluation Gross Sensation Gross Sensation WNL PT-OP-J Posture/Palpation/Skin Start: 01/15/21 16:16 Freq: Status: Active Protocol: Document 01/16/21 13:45 [facility] (Rec: 01/16/21 16:58 [facility] [id number]) Posture Evaluation Position Standing Head/C-Spine Posture Forward Head T-Spine Posture Increased Kyphosis L-Spine Posture Increased Lordosis Shoulder Posture (L) Rounded,(R) Rounded Scapula Posture (L) Protracted,(R) Protracted Pelvis Posture Anteriorly Tilted PT-OP-K Range of Motion Start: 01/15/21 16:16 Freq: Status: Active Protocol: Document 01/16/21 13:45 [facility] (Rec: 01/16/21 16:58 [facility] [id number]) Cervical Spine Range of Motion Cervical Spine Active ROM Limitations Soft Tissue Tightness Comments mild decrease in all movements Shoulder Goniometric Range of Motion Shoulder puneet Shoulder ROM WFL Yes PT-OP-M Strength Start: 01/15/21 16:16 Freq: Status: Active Protocol: Document 01/16/21 13:45 [facility] (Rec: 01/16/21 16:58 [facility] [id number]) Trunk Strength Trunk Manual Muscle Testing Flexion 4 Good Extension 4- Good- Shoulder Strength Shoulder Manual Muscle Testing puneet Flexion 4+ Good+ Extension 4+ Good+ External Rotation 4 Good Internal Rotation 4+ Good+ Horizontal Abduction 4- Good- PT-OP-Q Treatments Start: 01/15/21 16:16 Freq: Status: Active Protocol: Document 01/16/21 13:45 [facility] (Rec: 01/16/21 16:58 [facility] [id number]) Therapeutic Exercises Prone Exercises trunk extension Reps/Minutes 10x Comments hands behind head horizontal abduction Side bilateral Reps/Minutes 10x Comments with scapular retraction Manual Therapy Treatment Soft Tissue Mobilization STMs TS Body Location paraspinals R>L T5-11, rhomboids, UT Mobilization Type Myofascial Release,Strumming, Sustained Pressure,Other Intensity/Depth Moderate Body Position Prone Joint Mobilizations T4-T10 Joint PA Grade III Body Position Prone Reps/Duration 15 min Comments wedge PT-OP-R Modalities Start: 01/15/21 16:16 Freq: Status: Active Protocol: Document 01/16/21 13:45 [facility] (Rec: 01/16/21 16:58 [facility] [id number]) Hot Pack/Cold Pack Treatment Hot Pack Location thoracic spine Patient Position Hooklying Treatment Duration (minutes) 10 Comments s/p joint mobilization PT-OP-T Assessment and Plan Start: 01/15/21 16:16 Freq: Status: Active Protocol: Document 01/16/21 13:45 [facility] (Rec: 01/16/21 16:58 [facility] [id number]) Physical Therapy Assessment Rehab Potential Rehabilitation Potential Good Evaluation Complexity Number of Personal Factors/Comorbidities 1-2 Number of Body Systems Impaired 3 Clinical Presentation at Evaluation Evolving Impairments Impairments Activity Tolerance,Posture, Strength Goals Three Impairment postural dysfunction Impairment excess thoracic kyphosis, forward head, increased lumbar lordosis Backroom Associate Goal (LTG) Patient to demonstrate improved postural alignment and independent ability to self-correct to allow for optimal muscle function and tolerance for activities. LTG Duration 03/17/21 Two Impairment weakness posterior chain musculature Assisted Goal (LTG) Patient to demonstrate 5/5 muscle strength throughout posterior chain musculature of her shoulders and spine to allow her to do all usual functional activities with ease LTG Duration 03/17/21 One Impairment activity tolerance Impairment Patient unable to do all usual activities without an increase in pain in her thoracic and rhomboid area Assisted Goal (LTG) Patient able to do all usual activities including gardening without an increase in pain LTG Duration 03/17/21 Assessment Summary Assessment Patient presents with function -limiting pain in thoracic spine and rhomboid region with postural dysfunction and weakness. Previously benefited from PT and appears ready to have her HEP advanced , and to continue to work on postural correction, strengthening, and thoracic mobilization to continue to improve her tolerance for her usual activities. Patient is highly motivated and has good potential to achieve her PT goals. Physical Therapy Plan Frequency and Duration Frequency of Treatment 2x/Week Duration of Treatment 8 weeks Plan of Care Start Date 01/16/21 Plan of Care End Date 03/17/21 Therapeutic Interventions Therapeutic Interventions Home Exercise Program,Joint Mobilizations,Manual Therapy, Neuromuscular Re-education, Self-Care/Home Management, Sensory Integration,Soft Tissue Mobilization,Taping, Therapeutic Activities, Therapeutic Exercises Modalities Cold Pack/Ice Massage,Electric Stimulation,Hot Packs, Infrared Therapy,Traction- Mechanical,Ultrasound Next Visit Focus/Plan Next Note Type Treatment Note Next Visit Plan Postural correction exercises, prone strengthening, thoracic mobilization.
--- NOTE | 2021-01-16 17:03 | PT.OPPOC ---
Physical, Occupational & Speech Therapy At [facility] Current Diagnoses Dorsalgia, unspecified (01/16/21) Abnormal posture (01/16/21) Weakness (01/16/21) Visit Care Team Role Provider Type [place] Attending Provider Advanced Dean Of Women Primary Care Provider Referring Provider Specialty: Family Practice Address: [address] [place] [address], [facility] Email: [email or web address] Plan Of Care PT-OP-T Assessment and Plan Start: 01/15/21 16:16 Freq: Status: Active Protocol: Document 01/16/21 13:45 SAK (Rec: 01/16/21 16:58 SAK [id number]) Physical Therapy Assessment Rehab Potential Rehabilitation Potential Good Evaluation Complexity Number of Personal Factors/Comorbidities 1-2 Number of Body Systems Impaired 3 Clinical Presentation at Evaluation Evolving Impairments Impairments Activity Tolerance,Posture, Strength Goals Three Impairment postural dysfunction Impairment excess thoracic kyphosis, forward head, increased lumbar lordosis Usp Goal (LTG) Patient to demonstrate improved postural alignment and independent ability to self-correct to allow for optimal muscle function and tolerance for activities. LTG Duration 03/17/21 Two Impairment weakness posterior chain musculature Kick Boxer Goal (LTG) Patient to demonstrate 5/5 muscle strength throughout posterior chain musculature of her shoulders and spine to allow her to do all usual functional activities with ease LTG Duration 03/17/21 One Impairment activity tolerance Impairment Patient unable to do all usual activities without an increase in pain in her thoracic and rhomboid area Kick Boxer Goal (LTG) Patient able to do all usual activities including gardening without an increase in pain LTG Duration 03/17/21 Assessment Summary Assessment Patient presents with function -limiting pain in thoracic spine and rhomboid region with postural dysfunction and weakness. Previously benefited from PT and appears ready to have her HEP advanced , and to continue to work on postural correction, strengthening, and thoracic mobilization to continue to improve her tolerance for her usual activities. Patient is highly motivated and has good potential to achieve her PT goals. Physical Therapy Plan Frequency and Duration Frequency of Treatment 2x/Week Duration of Treatment 8 weeks Plan of Care Start Date 01/16/21 Plan of Care End Date 03/17/21 Therapeutic Interventions Therapeutic Interventions Home Exercise Program,Joint Mobilizations,Manual Therapy, Neuromuscular Re-education, Self-Care/Home Management, Sensory Integration,Soft Tissue Mobilization,Taping, Therapeutic Activities, Therapeutic Exercises Modalities Cold Pack/Ice Massage,Electric Stimulation,Hot Packs, Infrared Therapy,Traction- Mechanical,Ultrasound Next Visit Focus/Plan Next Note Type Treatment Note Next Visit Plan Postural correction exercises, prone strengthening, thoracic mobilization. Plan of Care Dates Plan of Care Start Date 01/16/21 Plan of Care End Date 03/17/21 Electronically Signed by: Atiya Farley, PT 01/16/21 8412 Please Sign and Return: I have reviewed this Plan of Care and certify that the skilled therapy services above are required to meet the patient?s needs. Physician Signature Date Printed Name and Credentials Clinical Instructor Signature Printed Name and Credentials
--- NOTE | 2021-01-25 09:25 | PT.OTN ---
Current Diagnoses Dorsalgia, unspecified (01/23/21) Abnormal posture (01/23/21) Weakness (01/23/21) Physical Therapy Treatment Note PT-OP-A Visit Information Start: 01/15/21 16:16 Freq: Status: Active Protocol: Document 01/23/21 14:40 SAK (Rec: 01/23/21 15:18 SAK [id number]) Out-Patient Physical Therapy Visit Information Visit Information Visit Type Treatment Note Visit Note stiff from resuming foam roller exercise horizontally, and from doing yardwork. 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 Has had PT multiple times over the years, most recently approximately 3 months ago; states she found it very helpful but may be ready to progress her exercise program and feels stiffness and pain in right scapular area and thoracic spine. Reports much more awareness with her posture and better able to correct but not always sure if doing correctly. Using raquet ball for self massage as instructed. Prior Treatments and Tests Physical therapy previously helpful Treatment Goals Patient/Caregiver Goals Decrease pain, improve posture and strength, and ability to do all usual activities Prior Functional Status Baseline Function- ADL's Independent Baseline Function- Mobility Independent Baseline Function- Gait independent Baseline Function- Work/School retired Baseline Function- Recreation/Hobbies no limitations Current Functional Impairments (Reported) Functional Limitations- ADL's some paion Functional Limitations- Mobility/Gait no limitations Functional Limitations- Work/School retired Functional Limitations- Recreation/ pain with gardening. Hobbies PT-OP-C Subjective Start: 01/15/21 16:16 Freq: Status: Active Protocol: Document 01/16/21 13:45 SAK (Rec: 01/16/21 16:43 SAK [id number]) Patient Questionnaires Oswestry Low Back Index Oswestry Score 4 OP-PT Pain Assessment Location rhomboids left Intensity 2 Scale Used Numeric (0 - 10) Description Aching,Pulling,Tightness Pain Aggravating Factors Bending,Lifting Pain Alleviating Factors Heat,Inactivity thoracic spine Intensity 2 Scale Used Numeric (0 - 10) Description Aching,Pulling,Tightness PT-OP-F Manual Assessment Start: 01/15/21 16:16 Freq: Status: Active Protocol: Document 01/16/21 13:45 [facility] (Rec: 01/16/21 16:58 [facility] [id number]) Manual Assessments Soft Tissue Assessment Soft Tissue Mobility Assessment Increased muscular tightness bilateral UT and rhomboids left greater than right Joint Mobility Assessment Joint Mobility Assessment decreased mid thoracic PA mobility from T3-T10 PT-OP-H Neuro Start: 01/15/21 16:16 Freq: Status: Active Protocol: Document 01/16/21 13:45 SAK (Rec: 01/16/21 16:58 [facility] [id number]) Sensation Evaluation Gross Sensation Gross Sensation WNL PT-OP-J Posture/Palpation/Skin Start: 01/15/21 16:16 Freq: Status: Active Protocol: Document 01/16/21 13:45 [facility] (Rec: 01/16/21 16:58 [facility] [id number]) Posture Evaluation Position Standing Head/C-Spine Posture Forward Head T-Spine Posture Increased Kyphosis L-Spine Posture Increased Lordosis Shoulder Posture (L) Rounded,(R) Rounded Scapula Posture (L) Protracted,(R) Protracted Pelvis Posture Anteriorly Tilted PT-OP-K Range of Motion Start: 01/15/21 16:16 Freq: Status: Active Protocol: Document 01/16/21 13:45 [facility] (Rec: 01/16/21 16:58 [facility] [id number]) Cervical Spine Range of Motion Cervical Spine Active ROM Limitations Soft Tissue Tightness Comments mild decrease in all movements Shoulder Goniometric Range of Motion Shoulder puneet Shoulder ROM WFL Yes PT-OP-M Strength Start: 01/15/21 16:16 Freq: Status: Active Protocol: Document 01/16/21 13:45 [facility] (Rec: 01/16/21 16:58 [facility] [id number]) Trunk Strength Trunk Manual Muscle Testing Flexion 4 Good Extension 4- Good- Shoulder Strength Shoulder Manual Muscle Testing puneet Flexion 4+ Good+ Extension 4+ Good+ External Rotation 4 Good Internal Rotation 4+ Good+ Horizontal Abduction 4- Good- PT-OP-Q Treatments Start: 01/15/21 16:16 Freq: Status: Active Protocol: Document 01/23/21 14:40 SAK (Rec: 01/23/21 15:18 SAK [id number]) Therapeutic Exercises Prone Exercises trunk extension Reps/Minutes 10x Comments hands behind head horizontal abduction Side bilateral Reps/Minutes 10x Comments with scapular retraction Manual Therapy Treatment Soft Tissue Mobilization STMs TS Body Location paraspinals R>L T5-11, rhomboids, UT Mobilization Type Myofascial Release,Strumming, Sustained Pressure,Other Intensity/Depth Moderate Body Position Prone Joint Mobilizations T4-T10 Joint PA Grade III Body Position Prone Reps/Duration 15 min Comments wedge PT-OP-R Modalities Start: 01/15/21 16:16 Freq: Status: Active Protocol: Document 01/16/21 13:45 SAK (Rec: 01/16/21 16:58 SAK [id number]) Hot Pack/Cold Pack Treatment Hot Pack Location thoracic spine Patient Position Hooklying Treatment Duration (minutes) 10 Comments s/p joint mobilization PT-OP-T Assessment and Plan Start: 01/15/21 16:16 Freq: Status: Active Protocol: Document 01/23/21 14:40 SAK (Rec: 01/23/21 15:18 SAK [id number]) Physical Therapy Assessment Goals Three Impairment postural dysfunction Impairment excess thoracic kyphosis, forward head, increased lumbar lordosis Group Home Goal (LTG) Patient to demonstrate improved postural alignment and independent ability to self-correct to allow for optimal muscle function and tolerance for activities. LTG Duration 03/17/21 Two Impairment weakness posterior chain musculature Eligibility Clerk Goal (LTG) Patient to demonstrate 5/5 muscle strength throughout posterior chain musculature of her shoulders and spine to allow her to do all usual functional activities with ease LTG Duration 03/17/21 One Impairment activity tolerance Impairment Patient unable to do all usual activities without an increase in pain in her thoracic and rhomboid area Eligibility Clerk Goal (LTG) Patient able to do all usual activities including gardening without an increase in pain LTG Duration 03/17/21 Assessment Summary Assessment Good tolerance for manual treatment, good compliance to HEP, and continued work on postural correction. Physical Therapy Plan Frequency and Duration Frequency of Treatment 2x/Week Duration of Treatment 8 weeks Plan of Care Start Date 01/16/21 Plan of Care End Date 03/17/21 Therapeutic Interventions Therapeutic Interventions Home Exercise Program,Joint Mobilizations,Manual Therapy, Neuromuscular Re-education, Self-Care/Home Management, Sensory Integration,Soft Tissue Mobilization,Taping, Therapeutic Activities, Therapeutic Exercises Modalities Cold Pack/Ice Massage,Electric Stimulation,Hot Packs, Infrared Therapy,Traction- Mechanical,Ultrasound Next Visit Focus/Plan Next Note Type Treatment Note Next Visit Plan Postural correction exercises, prone strengthening, thoracic mobilization.
--- NOTE | 2021-02-06 15:37 | PT.OTN ---
Current Diagnoses Dorsalgia, unspecified (02/06/21) Abnormal posture (02/06/21) Weakness (02/06/21) Physical Therapy Treatment Note PT-OP-A Visit Information Start: 01/15/21 16:16 Freq: Status: Active Protocol: Document 02/06/21 12:56 SAK (Rec: 02/06/21 13:49 SAK [id number]) Out-Patient Physical Therapy Visit Information Visit Information Visit Type Treatment Note Visit Start Time 13:00 Visit Stop Time 13:59 Total Visit Minutes 59 Visit Number 3 Evaluation Information Evaluation Date 01/16/21 PT-OP-B Current Condition Start: 01/15/21 16:16 Freq: Status: Active Protocol: Document 01/16/21 13:45 SAK (Rec: 01/16/21 14:31 SAK [id number]) Current Condition History of Current Condition Onset Date May 2020 Current Complaints Reports chronic right shoulder girdle and upper back pain History of Current Condition 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 Has had PT multiple times over the years, most recently approximately 3 months ago; states she found it very helpful but may be ready to progress her exercise program and feels stiffness and pain in right scapular area and thoracic spine. Reports much more awareness with her posture and better able to correct but not always sure if doing correctly. Using raquet ball for self massage as instructed. Prior Treatments and Tests Physical therapy previously helpful Treatment Goals Patient/Caregiver Goals Decrease pain, improve posture and strength, and ability to do all usual activities Prior Functional Status Baseline Function- ADL's Independent Baseline Function- Mobility Independent Baseline Function- Gait independent Baseline Function- Work/School retired Baseline Function- Recreation/Hobbies no limitations Current Functional Impairments (Reported) Functional Limitations- ADL's some paion Functional Limitations- Mobility/Gait no limitations Functional Limitations- Work/School retired Functional Limitations- Recreation/ pain with gardening. Hobbies PT-OP-C Subjective Start: 01/15/21 16:16 Freq: Status: Active Protocol: Document 02/06/21 12:56 SAK (Rec: 02/06/21 13:49 SAK [id number]) OP-PT Subjective Patient Comments Patient Comments Had to miss PT due to being on airplane, traveling. Feeling comfortable with her HEP. Rrequests today be last PT session: I know what I need to do so it's my fault if I don't do it. PT-OP-F Manual Assessment Start: 01/15/21 16:16 Freq: Status: Active Protocol: Document 01/16/21 13:45 SAK (Rec: 01/16/21 16:58 [facility] [id number]) Manual Assessments Soft Tissue Assessment Soft Tissue Mobility Assessment Increased muscular tightness bilateral UT and rhomboids left greater than right Joint Mobility Assessment Joint Mobility Assessment decreased mid thoracic PA mobility from T3-T10 PT-OP-H Neuro Start: 01/15/21 16:16 Freq: Status: Active Protocol: Document 01/16/21 13:45 SAK (Rec: 01/16/21 16:58 SAK [id number]) Sensation Evaluation Gross Sensation Gross Sensation WNL PT-OP-J Posture/Palpation/Skin Start: 01/15/21 16:16 Freq: Status: Active Protocol: Document 01/16/21 13:45 SAK (Rec: 01/16/21 16:58 [facility] [id number]) Posture Evaluation Position Standing Head/C-Spine Posture Forward Head T-Spine Posture Increased Kyphosis L-Spine Posture Increased Lordosis Shoulder Posture (L) Rounded,(R) Rounded Scapula Posture (L) Protracted,(R) Protracted Pelvis Posture Anteriorly Tilted PT-OP-K Range of Motion Start: 01/15/21 16:16 Freq: Status: Active Protocol: Document 01/16/21 13:45 SAK (Rec: 01/16/21 16:58 [facility] [id number]) Cervical Spine Range of Motion Cervical Spine Active ROM Limitations Soft Tissue Tightness Comments mild decrease in all movements Shoulder Goniometric Range of Motion Shoulder puneet Shoulder ROM WFL Yes PT-OP-M Strength Start: 01/15/21 16:16 Freq: Status: Active Protocol: Document 01/16/21 13:45 SAK (Rec: 01/16/21 16:58 SAK [id number]) Trunk Strength Trunk Manual Muscle Testing Flexion 4 Good Extension 4- Good- Shoulder Strength Shoulder Manual Muscle Testing puneet Flexion 4+ Good+ Extension 4+ Good+ External Rotation 4 Good Internal Rotation 4+ Good+ Horizontal Abduction 4- Good- PT-OP-Q Treatments Start: 01/15/21 16:16 Freq: Status: Active Protocol: Document 02/06/21 12:56 SAK (Rec: 02/06/21 13:49 [facility] [id number]) Therapeutic Exercises Prone Exercises prone Y Side bilateral Reps/Minutes 10x trunk extension Reps/Minutes 10x Comments hands behind head horizontal abduction Prone Exercise Name T Side bilateral Reps/Minutes 10x Comments with scapular retraction Manual Therapy Treatment Soft Tissue Mobilization STMs TS Body Location paraspinals R>L T5-11, rhomboids, UT Mobilization Type Myofascial Release,Strumming, Sustained Pressure,Other Intensity/Depth Moderate Body Position Prone Joint Mobilizations T4-T10 Joint PA Grade III Body Position Prone Reps/Duration 15 min Comments wedge PT-OP-R Modalities Start: 01/15/21 16:16 Freq: Status: Active Protocol: Document 01/16/21 13:45 [facility] (Rec: 01/16/21 16:58 [facility] [id number]) Hot Pack/Cold Pack Treatment Hot Pack Location thoracic spine Patient Position Hooklying Treatment Duration (minutes) 10 Comments s/p joint mobilization PT-OP-T Assessment and Plan Start: 01/15/21 16:16 Freq: Status: Active Protocol: Document 02/06/21 12:56 [facility] (Rec: 02/06/21 13:49 [facility] [id number]) Physical Therapy Assessment Goals Three Impairment postural dysfunction Impairment excess thoracic kyphosis, forward head, increased lumbar lordosis Ice Cream Van Vendor Goal (LTG) Patient to demonstrate improved postural alignment and independent ability to self-correct to allow for optimal muscle function and tolerance for activities. LTG Duration goal mostly met Two Impairment weakness posterior chain musculature Ice Cream Van Vendor Goal (LTG) Patient to demonstrate 5/5 muscle strength throughout posterior chain musculature of her shoulders and spine to allow her to do all usual functional activities with ease LTG Duration goal mostly met 4+/5 One Impairment activity tolerance Impairment Patient unable to do all usual activities without an increase in pain in her thoracic and rhomboid area Shelter Goal (LTG) Patient able to do all usual activities including gardening without an increase in pain LTG Duration goal met Assessment Summary Assessment Patient ready for discharge today, independent with HEP, comfortable with self-care. Goals mostly achieved. Physical Therapy Plan Discharge Physical Therapy Discharge Reasons Patient Request
== END 2021-02-20 09:29 ==
LOC: PHYS 13:00
PROVIDERS: PCP Nurse Practitioner; Referring Provider Nurse Practitioner; Visit Provider Nurse Practitioner
DX: M54.9 Dorsalgia, unspecified (principal); R53.1 Weakness; R29.3 Abnormal posture
CPT/HCPCS: 97010; 97110; 97140; 97162

== ENCOUNTER → 2021-02-17 13:25 | Outpatient (CLI) | payer MEDICARE, OTHER, SELFPAY ==
--- NOTE | 2021-02-17 13:27 | DI.MG.S_ITS ---
BILATERAL DIGITAL SCREENING MAMMOGRAM 3D/2D WITH CAD: 02/17/2021 CLINICAL: Routine screening. Comparison is made to exams dated: 01/26/2020 mammogram - [facility], 01/19/2019 mammogram, 12/15/2017 mammogram, and 11/15/2016 mammogram - [facility]. The tissue of both breasts is heterogeneously dense. This may lower the sensitivity of mammography. Current study was also evaluated with a Computer Aided Detection (CAD) system. No significant masses, calcifications, or other findings are seen in either breast. Left breast scar marker. There has been no significant interval change. IMPRESSION: NEGATIVE There is no mammographic evidence of malignancy. A 1 year screening mammogram is recommended. This exam was interpreted at Station ID: [id number]. NOTE: For mammograms, a report in lay terms will be sent to the patient. Approximately 15% of breast malignancies will not be visualized mammographically. In the management of a palpable breast mass, a negative mammogram must not discourage biopsy of a clinically suspicious lesion. Electronically Signed By: Ryan Tejeda M.D. slc/:02/19/2021 08:32:32 letter sent: Normal Exam ACR BI-RADS Category 1: Negative 3341F
== END ==
PROVIDERS: PCP Nurse Practitioner; Referring Provider Nurse Practitioner; Visit Provider Nurse Practitioner
DX: Z12.31 Encounter for screening mammogram for malignant neoplasm of breast (principal)
CPT/HCPCS: 77063; 77067

== ENCOUNTER → 2021-02-23 08:21 | Outpatient (CLI) | payer MEDICARE, OTHER, SELFPAY ==
[2021-02-23 10:01] LABS: Thyroid Stimulating Hormone 0.988 uIU/mL (0.47-4.68)
== END ==
PROVIDERS: PCP Nurse Practitioner; Referring Provider Nurse Practitioner; Visit Provider Nurse Practitioner
DX: E03.9 Hypothyroidism, unspecified (principal); Z79.899 Other long term (current) drug therapy
CPT/HCPCS: 36415; 84443

== ENCOUNTER → 2021-06-20 07:39 | Outpatient (CLI) | payer MEDICARE, OTHER, SELFPAY ==
[2021-06-20 15:01] LABS: Appearance Urine UA CLEAR; Bilirubin Urine UA NEGATIVE (NEGATIVE); Color Urine UA YELLOW; Glucose Urine UA NEGATIVE (Negative); Ketones Urine UA NEGATIVE (NEGATIVE); Leukocyte Esterase Urine UA NEGATIVE (NEGATIVE); Nitrite Urine UA NEGATIVE (Negative); Occult Blood Urine UA TRACE-INTACT (Negative); Protein Urine UA NEGATIVE (Negative); Specific Gravity Urine UA 1.015 (1.000-1.035); Urobilinogen Urine UA 0.2 E.U./dL (0.2); pH Urine UA 5.5 (4.5-8.0)
[2021-06-20 15:15] LABS: RBC Urine None Seen (0-5/HPF); WBC Urine None Seen (0-5/HPF)
[2021-06-20 15:16] LABS: Bacteria Urine None Seen; Culture Indicated Urine Cult Not Indicated
== END ==
PROVIDERS: PCP Nurse Practitioner; Referring Provider Nurse Practitioner; Visit Provider Nurse Practitioner
DX: R30.0 Dysuria (principal)
CPT/HCPCS: 81001

== ENCOUNTER → 2022-02-18 07:47 | Outpatient (CLI) | payer MEDICARE, OTHER, SELFPAY ==
--- NOTE | 2022-02-18 07:48 | DI.MG.S_ITS ---
BILATERAL DIGITAL SCREENING MAMMOGRAM 3D/2D WITH CAD: 02/18/2022 CLINICAL: Routine screening. Comparison is made to exams dated: 02/17/2021 mammogram, 01/26/2020 mammogram - [facility], and 01/19/2019 mammogram - [facility]. Both breasts are heterogeneously dense, which may obscure small masses (category c / 51-75% glandular tissue). Current study was also evaluated with a Computer Aided Detection (CAD) system. No significant masses, calcifications, or other findings are seen in either breast. There has been no significant interval change. IMPRESSION: NEGATIVE There is no mammographic evidence of malignancy. A 1 year screening mammogram is recommended. Based on the Tyrer Cuzick model (a risk assessment model) the patient's lifetime risk is 5.5% and her 10 year risk is 4.1%. According to the ACR, ACS, and NCCN guidelines, an annual breast MRI exam along with mammogram is recommended if the patient's lifetime risk is 20% or greater. This exam was interpreted at Station ID: [id number]. NOTE: For mammograms, a report in lay terms will be sent to the patient. Approximately 15% of breast malignancies will not be visualized mammographically. In the management of a palpable breast mass, a negative mammogram must not discourage biopsy of a clinically suspicious lesion. Electronically Signed By: Sunni xiong/courtney:02/18/2022 09:06:07 letter sent: Normal Exam ACR BI-RADS Category 1: Negative 3341F
== END ==
PROVIDERS: PCP Nurse Practitioner; Referring Provider Nurse Practitioner; Visit Provider Nurse Practitioner
DX: Z12.31 Encounter for screening mammogram for malignant neoplasm of breast (principal)
CPT/HCPCS: 77063; 77067

== ENCOUNTER → 2022-03-04 13:29 | Outpatient (CLI) | payer MEDICARE, OTHER, SELFPAY ==
[2022-03-04 17:39] LABS: COVID19 -Nasal RAPID Negative (Negative)
== END ==
PROVIDERS: PCP Nurse Practitioner; Visit Provider Surgery
DX: Z20.822 Contact with and (suspected) exposure to COVID-19 (principal); Z01.812 Encounter for preprocedural laboratory examination
CPT/HCPCS: 87635; C9803

== ENCOUNTER 2022-03-05 09:47 | Day surgery (SDC) | payer MEDICARE, OTHER, SELFPAY ==
--- NOTE | 2022-03-05 | PATH_ITS ---
[facility] Accession Number: [id number] . 01 Material submitted: . PART A: colon - CECUM PART B: colon - ASCENDING COLON . 01 Diagnosis: A. Cecum, Polyp, Biopsy: Tubular adenoma. . B. Ascending Colon Polyp, Biopsy: Tubular adenoma. MRV 03/11/2022 1543 Local . 01 Electronically signed: . Chandni Leos MD, Pathologist NPI- [id number] . 01 Gross description: . Part A: CECUM: Received in formalin is 1 fragment(s) of wang, soft tissue measuring 0.3 x 0.3 x 0.2 cm submitted entirely in 1 cassette(s) Part B: ASCENDING COLON: Received in formalin is 1 fragment(s) of wang, soft tissue measuring 0.4 x 0.2 x 0.2 cm submitted entirely in 1 cassette(s) /CPE 03/07/2022 0717 Local . 01 Pathologist provided ICD-10: D12.0, D12.2 . 01 CPT . 159595, 150868 Specimen Comment: A courtesy copy of this report has been sent to [phone] Performed at: 01 [facility] [address] [place] [address], [place], [place] [id number] MD Lucius Saxena MD Phone: [phone]
[2022-03-05 10:07] VITALS: BP 159/72; PULSE 75; RESP 16; TEMP 36.2; O2SAT 100; BMI 25.6
[2022-03-05] MEDS: LACTATED RINGERS 1,000 ML 200 ML IV (10:19)
--- NOTE | 2022-03-05 10:20 | P.HP_ITS ---
History of Present Illness History of Present Illness Date Patient Seen: 03/05/22 Time Patient Seen: 10:20 [place] complaint: [facility] [place]: The patient presents for colorectal screening. She has a family history of colon cancer in both father and sister. Last colonoscopy was 3 years ago and significant for multiple sessile polyps. . On further history denies any recent gastrointestinal symptoms. No nausea, vomiting, abdominal pain, loss of appetite, unexplained weight loss, change in bowel habits, diarrhea, constipation, melena, hematochezia, or bright red blood per rectum. Patient History Medical History Advance care planning Chicken pox (~1954) Elbow pain Hyperlipidemia LDL goal <100 Hypothyroidism (~2014) Laryngeal cyst Lateral epicondylitis of right elbow Measles (~1952) Neck pain on right side Right shoulder pain Shoulder pain (~1999) Surgical History Anesthesia History of hysterectomy (~1995) History of tonsillectomy (~1954) History of tubal ligation (~1987) Family & Social History Family History Father Colon cancer Diabetes mellitus History of heart disease Hypertension Alcoholism Mother Cancer Grandfather Emphysema lung Alcoholism Grandmother History of heart attack History of heart disease Grandfather No problems noted. Social History: household members spouse Tobacco & Substance use: Smoking Status Never smoker alcohol intake current alcohol intake frequency holiday/special occasion Substance Use Type does not use Meds Home Medications and Allergies Home Medications Medication Instructions Recorded Confirmed Type B-complex with vitamin C 1 cap PO DAILY 02/25/19 03/05/22 History multivitamin 1 cap PO DAILY 02/25/19 03/05/22 History omega-3 fatty acids 1,000 mg 1,000 mg PO DAILY 02/25/19 03/05/22 History capsule (Fish Oil Concentrate) calcium carbonate 600 mg calcium 600 mg PO BID 05/21/21 03/05/22 History (1,500 mg) tablet (Calcium) fluticasone propionate 50 2 spray intranasal BID PRN allergy 05/21/21 03/05/22 History mcg/actuation nasal symptoms spray,suspension (Flonase Allergy Relief) levothyroxine 75 mcg tablet 75 mcg PO DAILY hypothyroidism #90 05/21/21 03/05/22 Rx (Synthroid) tabs Allergies Allergy/AdvReac Type Severity Reaction Status Date / Time Penicillins Allergy Severe Swelling Verified 03/05/22 10:05 of Lip/Tongue/Throat, rash Exam Vital Signs (past 8 hours): - 03/05/22 10:07 Temperature 97.2 F L Pulse Rate 75 Respiratory Rate 16 Blood Pressure 159/72 H Pulse Oximetry 100 Oxygen Delivery Method Room Air Oxygen Delivery Method Room Air Narrative Exam Narrative: General adult woman alert oriented no acute distress Chest nonlabored respirations Abdomen soft nontender nondistended Assessment & Plan Assessment and plan (1) Personal history of colonic polyps: Status: Acute Assessment & Plan narrative: The patient requires colorectal screening and colonoscopy is recommended. Technical details were discussed. Risks, benefits, alternatives explained. Risks including but not limited to myocardial infarction, aspiration, bleeding, pain, missed lesion, incomplete examination, need for further radiographic studies, colonic perforation, and need for major abdominal surgery were discussed. All questions were answered to their satisfaction, and they are in agreement with this plan. Time Spent With Patient Critical Care time: I spent a total of [] minutes of critical care time on this patient's care today; this time is exclusive of procedural time.
--- NOTE | 2022-03-05 10:22 | P.OP.COLON_ITS ---
Operative Date/Time/Diagnoses Date of procedure: 03/05/22 Time of procedure: 10:22 Pre-op diagnosis: Personal history of colonic polyps Family history of colon cancer Post-op diagnosis: same Procedure & Clinicians Study performed: Colonoscopy and polypectomy Same procedure as scheduled: Yes Indications: Personal history of colonic polyps and a family history of colon cancer in first-degree relative x2 Surgeon: Arnav Jordan Procedure Notes Procedure in detail: The history and physical was performed/updated and the patient is ASA class is 2. The procedure was discussed in detail with the patient. Potential risks complications including infection, bleeding, missed diagnosis, perforation, need for surgery, and were explained. Their questions were answered and informed consent was obtained. Patient was brought to the procedure room and placed standard monitoring equipment. The patient's vital signs were monitored continuously throughout the entire procedure. Prior to starting time-out was performed. The patient was p laced in the left lateral recumbent position. Procedural sedation was administered by anesthesia. Examination began with a thorough inspection of the perianal area there was no evidence of fissures, fistulae, external hemorrhoids or cutaneous malignancy. The colonoscopy scope was then placed into the anal canal and was advanced to the cecum, which was identified by the ileocecal valve, the appendiceal orifice and the confluence of the taenia. The scope was then slowly withdrawn examining colon thoroughly in all directions, irrigating it of any residual stool. FINDINGS 1. Cecal polyp 5 mm just distal to the ileocecal valve removed with cold snare 2. Ascending colonic polyp 3 mm removed with cold snare The patient tolerated the procedure well. They will be discharged once criteria are met. The prep was of good/excellent quality. The withdrawl time was 9 minutes. Specimen(s): other (Cecum and ascending colonic polyps) Complications: none Impression: Colonic polyps Post-procedure Recommendations: Will call with biopsy results Disposition: same day surgery
[2022-03-05 10:53] VITALS: BP 108/62; PULSE 68; RESP 15; TEMP 36.3; O2SAT 98
[2022-03-05 10:58] VITALS: BP 114/60; PULSE 59; RESP 15; O2SAT 99
[2022-03-05 11:03] VITALS: BP 130/70; PULSE 61; RESP 14; O2SAT 98
[2022-03-05 11:08] VITALS: BP 141/76; PULSE 67; RESP 14; TEMP 36.1; O2SAT 98
[2022-03-05 11:14] VITALS: BP 150/78; PULSE 56; RESP 14; TEMP 36.7; O2SAT 98
== END 2022-03-05 11:27 | disposition home or self-care (01) ==
PROVIDERS: PCP Nurse Practitioner; Referring Provider Surgery; Visit Provider Surgery
PROC: 0DJD8ZZ Inspection of Lower Intestinal Tract, Via Natural or Artificial Opening Endoscopic (ICD-10-PCS; CPT 45378; principal; 2022-03-05 10:45)
DX: Z12.11 Encounter for screening for malignant neoplasm of colon (principal); Z86.010 Personal history of colon polyps; Z80.0 Family history of malignant neoplasm of digestive organs; D12.0 Benign neoplasm of cecum; D12.2 Benign neoplasm of ascending colon
CPT/HCPCS: 45385; J3010

== ENCOUNTER → 2022-05-28 08:55 | Outpatient (CLI) | payer MEDICARE, OTHER, SELFPAY ==
[2022-05-28 09:50] LABS: Microalbumi Creatinin Ratio Ur 17.3 ug/mg CR (<30); Microalbumin Urine Random 2.6 mg/dL (0-1.6)
[2022-05-28 10:16] LABS: Alanine Aminotransferase 23 IU/L (<35); Albumin 4.6 g/dL (3.5-5.0); Albumin Globulin Ratio 1.4 (1.0-2.8); Alkaline Phosphatase 64 U/L (38-126); Aspartate Aminotransferase 32 IU/L (14-36); BUN Creatinine Ratio 21.5 (6-22); Bilirubin Total 0.3 mg/dL (0.2-1.3); Blood Urea Nitrogen 17 mg/dL (7-17); Carbon Dioxide 28 mmol/L (22-32); Chloride 101 mmol/L (98-107); Cholesterol 238 mg/dL (140-199); Estimated Glomerular Filt Rate > 60 mL/min (>60); Globulin 3.2 g/dL (1.7-4.1); Glucose 97 mg/dL (80-110); HDL Cholesterol 59 mg/dL (40-60); HEMOLYSIS < 15 (0-50); LDL Cholesterol Calculated 145 mg/dL (<100); Potassium 4.5 mmol/L (3.4-5.1); Sodium 138 mmol/L (137-145); Total Protein 7.8 g/dL (6.3-8.2); Triglycerides 172 mg/dL (35-150)
[2022-05-28 10:31] LABS: Free T3, Triiodothyronine Free 3.21 pg/mL (2.77-5.27); Free T4, Direct Thyroxine 1.57 ng/dL (0.78-2.19)
[2022-05-28 10:44] LABS: Thyroid Stimulating Hormone 1.76 uIU/mL (0.47-4.68)
[2022-05-28 11:04] LABS: Hep C Virus Ab w/Reflex Quant NEGATIVE s/c (NEGATIVE)
== END ==
PROVIDERS: PCP Nurse Practitioner; Referring Provider Nurse Practitioner; Visit Provider Nurse Practitioner
DX: E03.9 Hypothyroidism, unspecified (principal); E78.5 Hyperlipidemia, unspecified; Z79.899 Other long term (current) drug therapy; Z11.59 Encounter for screening for other viral diseases
CPT/HCPCS: 36415; 80053; 80061; 82043; 82570; 84439; 84443; 84481; 86803

== ENCOUNTER 2022-06-13 17:54 | Emergency (ER) | payer MEDICARE, OTHER, SELFPAY ==
[2022-06-13] VITALS (7 sets, daily range): BP systolic 131–186; BP diastolic 83–99; PULSE 60–80; RESP 17; TEMP 36.9; O2SAT 97–100; BMI 24.7
[2022-06-13] MEDS: BACITRACIN OINT 0.9 GM PCKT 1 APPLIC TOP (18:40)
--- NOTE | 2022-06-13 18:51 | ED_ITS ---
HPI - Burn/Smoke Inhalation <Marcos Baez PA-C - Last Filed: 06/13/22 19:05> General Chief complaint: Burn/Smoke Inhalation Stated complaint: Left arm burn Time Seen by Provider: 06/13/22 18:04 Source: patient Mode of arrival: Ambulatory History of Present Illness HPI Narrative: This is a 71-year-old female presents to the emergency department due to a burn to the left upper extremity. Patient states that just prior to arrival she spilled some hot water on her arm which was covered by a Fleece which caused the to remain on her arm for longer than she would like. She denies any nausea, vomiting, fevers, or any other symptoms other than the handy to the left upper extremity. Denies any numbness or changes of range of motion to the left upper extremity. Tetanus is up-to-date. Related Data Home Medications Medication Instructions Recorded Confirmed B-complex with vitamin C 1 cap PO DAILY 02/25/19 06/03/22 multivitamin 1 cap PO DAILY 02/25/19 06/03/22 omega-3 fatty acids 1,000 mg 1,000 mg PO DAILY 02/25/19 06/03/22 capsule (Fish Oil Concentrate) calcium carbonate 600 mg calcium 600 mg PO BID 05/21/21 06/03/22 (1,500 mg) tablet (Calcium) fluticasone propionate 50 2 spray intranasal BID PRN allergy 05/21/21 06/03/22 mcg/actuation nasal symptoms spray,suspension (Flonase Allergy Relief) Previous Rx's Medication Instructions Recorded levothyroxine 75 mcg tablet 75 mcg PO DAILY hypothyroidism #90 05/28/22 (Synthroid) tabs bacitracin 500 unit/gram topical 1 applic topical Q8H #14 grams 06/13/22 ointment hydrocodone 5 mg-acetaminophen 325 1 tab PO BEDTIME PRN pain #7 tabs 06/13/22 mg tablet Allergies Allergy/AdvReac Type Severity Reaction Status Date / Time Penicillins Allergy Severe Swelling Verified 06/13/22 18:01 of Lip/Tongue/Throat, rash Review of Systems <Marcos Baez PA-C - Last Filed: 06/13/22 19:05> Review of Systems Narrative: GENERAL: Denies chills, fatigue, malaise, fever, sweats. HEENT: Denies sinus pain, ear pain, sore throat, difficulty swallowing, dizziness. RESPIRATORY: Denies dyspnea, cough, wheezing, hemoptysis, sputum. CARDIOVASCULAR: Denies chest pain, palpitations, orthopnea, edema, GASTROINTESTINAL: Denies nausea, vomiting, abdominal pain, diarrhea, constipation, melena. : Denies dysuria, frequency, incontinence, hematuria, urinary retention. MUSCULOSKELETAL: denies weakness, joint pain, or bony pain SKIN: Superficial burn to the left arm NEUROLOGIC: Denies weakness, headache, numbness, change in speech, confusion, seizures, incoordination. PSYCHIATRIC: No concerning psychosocial issues. 12 point review of systems is negative except for those stated above Patient History <Marcos Baez PA-C - Last Filed: 06/13/22 19:05> Medical History Advance care planning Chicken pox (~1954) Elbow pain Hyperlipidemia LDL goal <100 Hypothyroidism (~2014) Laryngeal cyst Lateral epicondylitis of right elbow Measles (~1952) Neck pain on right side Right shoulder pain Shoulder pain (~1999) Surgical History Anesthesia History of hysterectomy (~1995) History of tonsillectomy (~1954) History of tubal ligation (~1987) Family History Father Colon cancer Diabetes mellitus History of heart disease Hypertension Alcoholism Mother Cancer Grandfather Emphysema lung Alcoholism Grandmother History of heart attack History of heart disease Grandfather No problems noted. Social History household members: spouse Smoking Status: Never smoker alcohol intake: current substance use type: does not use Smoking Status: Never smoker alcohol intake frequency: holidays/special occasions only Substance Use Type: does not use Exam <Marcos Baez PA-C - Last Filed: 06/13/22 19:05> Narrative Exam Narrative: GENERAL: Well-developed patient, in mild distress. HEAD: Atraumatic. Normocephalic. EYES: Pupils equal round and reactive. Extraocular motions intact. No scleral icterus. No injection or drainage. ENT: Nose without bleeding, purulent drainage. Throat without erythema, tonsillar hypertrophy or exudate. Airway patent. NECK: Trachea midline. Non tender CARDIOVASCULAR: Regular rate and rhythm without murmurs, gallops, or rubs. RESPIRATORY: Clear to auscultation. Breath sounds equal bilaterally. No wheezes, rales, or rhonchi. GASTROINTESTINAL: Abdomen soft, non-tender, nondistended. EXTREMITIES: No edema or joint tenderness. BACK: Nontender without deformity or crepitance. No flank tenderness. NEURO: AOx3. SKIN: First-degree burn with no obvious blistering to the left upper extremity at the medial elbow. Not affecting the antecubital space or the posterior aspect of the elbow Initial Vital Signs Initial Vital Signs: Vital Signs Pulse Rate 80 06/13/22 17:58 Pulse Oximetry 100 06/13/22 17:58 <DO Jessica Chun Last Filed: 06/13/22 22:24> Initial Vital Signs Initial Vital Signs: Vital Signs Pulse Rate 80 06/13/22 17:58 Pulse Oximetry 100 06/13/22 17:58 Course <Marcos Baez PA-C - Last Filed: 06/13/22 19:05> Orders Ordered: Discontinued Medications Bacitracin (Bacitracin Oint 0.9 Gm Pckt) 1 applic TOP NOW ONE Stop: 06/13/22 18:33 Last Admin: 06/13/22 18:40 Dose: 1 applic Documented By: RLS Vital Signs Vital signs: Vital Signs - 8 hr 06/13/22 17:59 06/13/22 17:58 06/13/22 17:59 Temperature 98.5 F Pulse Rate 76 80 78 Respiratory Rate 17 Blood Pressure 131/93 H Pulse Oximetry 99 100 99 Oxygen Delivery Method Room Air 06/13/22 17:59 06/13/22 18:00 06/13/22 19:09 Temperature Pulse Rate 73 Respiratory Rate Blood Pressure 131/93 H Pulse Oximetry 100 97 Oxygen Delivery Method 06/13/22 19:10 06/13/22 19:10 06/13/22 19:13 Temperature Pulse Rate 60 69 Respiratory Rate Blood Pressure 186/83 H Pulse Oximetry 100 100 Oxygen Delivery Method 06/13/22 19:19 Temperature Pulse Rate Respiratory Rate Blood Pressure 180/99 H Pulse Oximetry Oxygen Delivery Method <DO Jessica Chun Last Filed: 06/13/22 22:24> Orders Ordered: Discontinued Medications Bacitracin (Bacitracin Oint 0.9 Gm Pckt) 1 applic TOP NOW ONE Stop: 06/13/22 18:33 Last Admin: 06/13/22 18:40 Dose: 1 applic Documented By: DERRELL Vital Signs Vital signs: Vital Signs - 8 hr 06/13/22 17:59 06/13/22 17:58 06/13/22 17:59 Temperature 98.5 F Pulse Rate 76 80 78 Respiratory Rate 17 Blood Pressure 131/93 H Pulse Oximetry 99 100 99 Oxygen Delivery Method Room Air 06/13/22 17:59 06/13/22 18:00 06/13/22 19:09 Temperature Pulse Rate 73 Respiratory Rate Blood Pressure 131/93 H Pulse Oximetry 100 97 Oxygen Delivery Method 06/13/22 19:10 06/13/22 19:10 06/13/22 19:13 Temperature Pulse Rate 60 69 Respiratory Rate Blood Pressure 186/83 H Pulse Oximetry 100 100 Oxygen Delivery Method 06/13/22 19:19 Temperature Pulse Rate Respiratory Rate Blood Pressure 180/99 H Pulse Oximetry Oxygen Delivery Method MDM - Burn/Smoke Inhalation <Marcos Baez PA-C - Last Filed: 06/13/22 19:05> MDM Narrative Medical decision making narrative: MDM * differential diagnosis includes but not limited to first-degree burn, second- degree burn, cellulitis * Prior records reviewed: Patient has not been here for similar symptoms in the past * My lab interpretation: None ordered * My imgaing interpretation: None ordered * Clinical Decision Rules/Scores evaluated: None * Independent discussions with: None ED Course: This is a 71-year-old female presents emergency department due to a first-degree burn to the left elbow. Patient does not significantly affect the joint and no if any kind of skin breakdown. Examined the patient's handy with my attending physician, Dr. Cleary, who recommended xeroform, abx ointment, and discharge. This was done without complications. Shared Decision Making: Shared decision-making lives discharge plan with patient who is agreeable with the plan. Social Considerations: None Disposition: Discharged to home Discharge Plan Departure Patient Disposition: Home Clinical Impression: First degree burn Instructions: DI for Handy Activity Restrictions/Additional Instructions: Thank you for coming to the [facility] Emergency Department today. Please use the antibiotic ointment as prescribed and follow the dressing directions given to you by Dr. Cleary. Please use ibuprofen as needed for pain but you may use the prescribed medications if needed to help you sleep. I hope you feel better soon. Prescriptions: New bacitracin 500 unit/gram ointment 1 applic topical Q8H Qty: 14 0RF hydrocodone-acetaminophen 5-325 mg tablet 1 tab PO BEDTIME PRN (Reason: pain) Qty: 7 0RF No Action levothyroxine [Synthroid] 75 mcg tablet 75 mcg PO DAILY Qty: 90 3RF Rx Instructions: Take 1 tablet by mouth each am on an empty stomach 30 mins prior to breakfast. fluticasone propionate [Flonase Allergy Relief] 50 mcg/actuation spray,suspension 2 spray NASAL BID PRN (Reason: allergy symptoms) Rx Instructions: administer into each nostril multivitamin Capsule 1 cap PO DAILY B-complex with vitamin C Capsule 1 cap PO DAILY omega-3 fatty acids [Fish Oil Concentrate] 1,000 mg capsule 1,000 mg PO DAILY calcium carbonate [Calcium 600] 600 mg calcium (1,500 mg) tablet 600 mg PO BID Referrals: Ricarda Newton ARNP [Primary Care Provider] - Stand Alone Forms: Patient Portal/API <Neida Cleary DO - Last Filed: 06/13/22 22:24> Cosign ED Attending Cosignature Attestation: I was immediately available in the department for consultation. Documentation has been reviewed. I did see and evaluate patient at request of a PC scattered erythematous areas looks starting to blister but no actual blisters he had. It does not actually cover the flexion part of the are. No significant large joint involvement.
--- NOTE | 2022-06-13 19:09 | PC.NURSE ---
left arm with first degree burn.
== END 2022-06-13 19:27 | disposition home or self-care (01) ==
PROVIDERS: Emergency Provider Physician Assistant Medical; PCP Nurse Practitioner
DX: T22.122A Burn of first degree of left elbow, initial encounter (principal); X11.8XXA Contact with other hot tap-water, initial encounter
CPT/HCPCS: 99282

== ENCOUNTER → 2022-07-30 09:52 | Outpatient (CLI) | payer MEDICARE, OTHER, SELFPAY ==
--- NOTE | 2022-07-30 09:55 | DI.RAD.S_ITS ---
Bone Density Report Name: ERICA FUNEZ Age: 71 Sex: Female Ethnicity: White Date of : 1950 Indication: postmenopausal; screening for osteoporosis; Referring Provider: KORTNEY SPANN Study: Bone densitometry was performed. Exam Date: July 30, 2022 Accession number: [id number] Bone Density: Region BMD T-score Z-score Classification AP Spine(L1, L3, L4) 1.078 0.2 2.5 Normal Femoral Neck (Left) 0.743 -1.0 1.0 Normal Total Hip (Left) 0.909 -0.3 1.4 Normal Femoral Neck (Right) 0.755 -0.8 1.1 Normal Total Hip (Right) 0.963 0.2 1.8 Normal Total Hip Mean 0.936 -0.1 1.6 Normal World Health Organization criteria for BMD impression classify patients as: Normal (T-score at or above -1.0), Osteopenia (T-score between -1.0 and -2.5), or Osteoporosis (T-score at or below -2.5). 10-year Fracture Risk: FRAX not reported because: All T-scores for Spine Total, Hip Total, Femoral Neck at or above -1.0 Previous Exams: -- Region Exam Age BMD T-score BMD Change BMD Change Date g/cm2 vs Baseline vs Previous -- AP Spine (L1,L3-L4) 07/30/2022 71 1.078 0.2 -0.102 (-8.6%)# -0.102 (-8.6%)# 07/07/2020 69 1.180 1.2 Total Hip(Left) 07/30/2022 71 0.909 -0.3 -0.051 (-5.3%)# -0.051 (-5.3%)# 07/07/2020 69 0.960 0.1 Total Hip(Right) 07/30/2022 71 0.963 0.2 -0.038 (-3.8%)# -0.038 (-3.8%)# 07/07/2020 69 1.001 0.5 -- *Denotes significance at 95% confidence level, LSC for AP Spine = 0.022 g/cm2, LSC for Total Hip = 0.027 g/cm2 # Denotes dissimilar scan types or analysis methods Impression: The patient has normal bone mass. No significant bone loss was observed. Discussion: BONE DENSITY IS ABOVE THE MINIMUM DESIRABLE LEVEL AT ALL SKELETAL SITES TESTED. This patient's bone mineral density is above the minimum desirable level (T-score -1.0 or better) at all sites measured. The patient should follow a healthful lifestyle (good nutrition with adequate calcium and vitamin D, and appropriate weight-bearing exercise). Follow-Up: Consider repeating this study in 5 years or sooner if there is some new clinical indication. Reported by: LORI PERDOMO MD on 07/30/2022 10:52:00 AM.
== END ==
PROVIDERS: PCP Nurse Practitioner; Referring Provider Nurse Practitioner; Visit Provider Nurse Practitioner
DX: Z13.820 Encounter for screening for osteoporosis; Z78.0 Asymptomatic menopausal state; Z90.710 Acquired absence of both cervix and uterus
CPT/HCPCS: 77080

== ENCOUNTER → 2023-02-27 07:15 | Outpatient (CLI) | payer MEDICARE, OTHER, SELFPAY ==
--- NOTE | 2023-02-27 07:18 | DI.MG.S_ITS ---
BILATERAL DIGITAL SCREENING MAMMOGRAM 3D/2D WITH CAD: 02/27/2023 CLINICAL: Routine screening. Comparison is made to exams dated: 02/18/2022 mammogram, 02/17/2021 mammogram, and 01/26/2020 mammogram - [facility]. Both breasts are heterogeneously dense, which may obscure small masses (category c / 51-75% glandular tissue). Current study was also evaluated with a Computer Aided Detection (CAD) system. No significant masses, calcifications, or other findings are seen in either breast. There has been no significant interval change. IMPRESSION: NEGATIVE There is no mammographic evidence of malignancy. A 1 year screening mammogram is recommended. Based on the Tyrer Cuzick model (a risk assessment model) the patient's lifetime risk is 5.1% and her 10 year risk is 4.2%. According to the ACR, ACS, and NCCN guidelines, an annual breast MRI exam along with mammogram is recommended if the patient's lifetime risk is 20% or greater. This exam was interpreted at Station ID: [id number]. NOTE: For mammograms, a report in lay terms will be sent to the patient. Approximately 15% of breast malignancies will not be visualized mammographically. In the management of a palpable breast mass, a negative mammogram must not discourage biopsy of a clinically suspicious lesion. Electronically Signed By: Mando perez/courtney:02/27/2023 14:20:37 letter sent: Normal Exam ACR BI-RADS Category 1: Negative [id number]
== END ==
PROVIDERS: PCP Nurse Practitioner; Referring Provider Nurse Practitioner; Visit Provider Nurse Practitioner
DX: Z12.31 Encounter for screening mammogram for malignant neoplasm of breast (principal)
CPT/HCPCS: 77063; 77067

== ENCOUNTER → 2023-03-28 08:25 | Outpatient (CLI) | payer MEDICARE, OTHER, SELFPAY ==
[2023-03-28 10:12] LABS: Alanine Aminotransferase 17 IU/L (<35); Albumin 4.3 g/dL (3.5-5.0); Albumin Globulin Ratio 1.5 (1.0-2.8); Alkaline Phosphatase 57 U/L (38-126); Aspartate Aminotransferase 24 IU/L (14-36); BUN Creatinine Ratio 17.6 (6-22); Bilirubin Total 0.6 mg/dL (0.2-1.3); Blood Urea Nitrogen 13 mg/dL (7-17); Calcium 9.6 mg/dL (8.4-10.2); Carbon Dioxide 26 mmol/L (22-32); Chloride 98 mmol/L (98-107); Cholesterol 235 mg/dL (140-199); Estimated Glomerular Filt Rate > 60 mL/min (>60); Globulin 2.8 g/dL (1.7-4.1); Glucose 91 mg/dL (80-110); HDL Cholesterol 54 mg/dL (40-60); HEMOLYSIS < 15 (0-50); LDL Cholesterol Calculated 146 mg/dL (<100); Potassium 4.6 mmol/L (3.4-5.1); Sodium 132 mmol/L (137-145); Total Protein 7.1 g/dL (6.3-8.2); Triglycerides 174 mg/dL (35-150)
[2023-03-28 10:30] LABS: Free T3, Triiodothyronine Free 2.93 pg/mL (2.77-5.27); Free T4, Direct Thyroxine 1.41 ng/dL (0.78-2.19)
[2023-03-28 11:17] LABS: Microalbumi Creatinin Ratio Ur 16.3 ug/mg CR (<30); Microalbumin Urine Random 2.3 mg/dL (0-1.6)
== END ==
PROVIDERS: PCP Nurse Practitioner; Referring Provider Nurse Practitioner; Visit Provider Nurse Practitioner
DX: E78.5 Hyperlipidemia, unspecified (principal); Z79.899 Other long term (current) drug therapy; E03.9 Hypothyroidism, unspecified
CPT/HCPCS: 36415; 80053; 80061; 82043; 82570; 84439; 84443; 84481

== ENCOUNTER → 2024-01-29 08:11 | Outpatient (CLI) | payer MEDICARE, OTHER, SELFPAY ==
[2024-01-29 09:08] LABS: Add Manual Diff / Slide Review NO; Basophils Absolute Auto 100 /uL (0-100); Basophils Percent Auto 0.6 % (0-2); Eosinophils Absolute Auto 200 /uL (0-450); Eosinophils Percent Auto 2.1 % (2-4); Hematocrit 38.1 % (36-46); Hemoglobin 12.6 g/dL (12.0-16.0); Lymphocytes Absolute Auto 2300 /uL (1100-4500); Lymphocytes Percent Auto 25.2 % (25-40); Mean Corpuscular HGB Conc 33.2 % (30-36); Mean Corpuscular Volume 87.4 fL (80-100); Monocytes Absolute Auto 600 /uL (0-900); Monocytes Percent Auto 6.5 % (3-14); Neutrophils Absolute Auto 5900 /uL (1500-7000); Neutrophils Percent Auto 65.6 % (50-75); Platelet Count 255 X10^3/uL (150-400); Red Blood Cell Count 4.35 X10^6/uL (4.0-5.2); Red Cell Distribution Width 14.8 % (11.6-14.8)
[2024-01-29 10:03] LABS: Alanine Aminotransferase 16 IU/L (<35); Albumin 4.3 g/dL (3.5-5.0); Albumin Globulin Ratio 1.7 (1.0-2.8); Alkaline Phosphatase 74 U/L (38-126); Aspartate Aminotransferase 25 IU/L (14-36); Bilirubin Total 0.5 mg/dL (0.2-1.3); Blood Urea Nitrogen 13 mg/dL (7-17); Calcium 9.8 mg/dL (8.4-10.2); Carbon Dioxide 27 mmol/L (22-32); Chloride 101 mmol/L (98-107); Cholesterol 230 mg/dL (140-199); Estimated Glomerular Filt Rate > 60 mL/min (>60); Globulin 2.5 g/dL (1.7-4.1); Glucose 96 mg/dL (80-110); HDL Cholesterol 61 mg/dL (40-60); HEMOLYSIS < 15 (0-50); LDL Cholesterol Calculated 137 mg/dL (<100); Potassium 4.5 mmol/L (3.4-5.1); Sodium 134 mmol/L (137-145); Total Protein 6.8 g/dL (6.3-8.2); Triglycerides 160 mg/dL (35-150)
[2024-01-29 10:04] LABS: Microalbumin Urine Random 1.3 mg/dL (0-1.6)
[2024-01-29 10:30] LABS: TSH w/ Reflex to FT4 1.14 uIU/mL (0.47-4.68)
== END ==
PROVIDERS: PCP Student in an Organized Health Care Education/Training Program; Referring Provider Student in an Organized Health Care Education/Training Program; Visit Provider Student in an Organized Health Care Education/Training Program
DX: E03.9 Hypothyroidism, unspecified (principal); E78.5 Hyperlipidemia, unspecified; J32.9 Chronic sinusitis, unspecified; I10 Essential (primary) hypertension
CPT/HCPCS: 36415; 80053; 80061; 82043; 82570; 84443; 85025

== ENCOUNTER → 2024-03-06 07:51 | Outpatient (CLI) | payer MEDICARE, OTHER, SELFPAY ==
--- NOTE | 2024-03-06 | DI.MG.S_ITS ---
BILATERAL DIGITAL SCREENING MAMMOGRAM 3D/2D WITH CAD: 03/06/2024 CLINICAL: Routine screening. Comparison is made to exams dated: 02/27/2023 mammogram, 02/18/2022 mammogram, and 02/17/2021 mammogram - [facility]. The breasts are heterogeneously dense, which may obscure small masses (category c / 51-75% glandular tissue). Current study was also evaluated with a Computer Aided Detection (CAD) system. No significant masses, calcifications, or other findings are seen in either breast. There has been no significant interval change. IMPRESSION: NEGATIVE There is no mammographic evidence of malignancy. A 1 year screening mammogram is recommended. Based on the Tyrer Cuzick model (a risk assessment model) the patient's lifetime risk is 4.8% and her 10 year risk is 4.3%. According to the ACR, ACS, and NCCN guidelines, an annual breast MRI exam along with mammogram is recommended if the patient's lifetime risk is 20% or greater. This exam was interpreted at Station ID: [id number]. NOTE: For mammograms, a report in lay terms will be sent to the patient. Approximately 15% of breast malignancies will not be visualized mammographically. In the management of a palpable breast mass, a negative mammogram must not discourage biopsy of a clinically suspicious lesion. Electronically Signed By: Sarkis li/courtney:03/08/2024 06:46:57 letter sent: Normal Exam ACR BI-RADS Category 1: Negative
== END ==
LOC: MAMMO 07:52
PROVIDERS: PCP Student in an Organized Health Care Education/Training Program; Referring Provider Student in an Organized Health Care Education/Training Program; Visit Provider Student in an Organized Health Care Education/Training Program
DX: Z12.31 Encounter for screening mammogram for malignant neoplasm of breast (principal); R92.333 Mammographic heterogeneous density, bilateral breasts
CPT/HCPCS: 77063; 77067

== ENCOUNTER → 2025-03-07 07:45 | Outpatient (CLI) | payer MEDICARE, OTHER, SELFPAY ==
--- NOTE | 2025-03-07 07:48 | DI.MG.S_ITS ---
MM screening mammo BI: 03/07/2025. BI-RADS: 1 CLINICAL: 74-year old female for bilateral screening mammogram. Tyrer-Cuzick lifetime risk of 3.3%. No personal or first-degree family history of breast cancer. PRIOR EXAMS: 03/06/2024, 02/27/2023, 02/18/2022, 02/17/2021, 01/26/2020. MAMMOGRAPHY TECHNIQUE: 2D and 3D (tomosynthesis) digital mammographic views obtained, with additional images as needed for full coverage. Current study was also evaluated with a Computer Aided Detection (CAD) system. DENSITY C. The breasts are heterogeneously dense, which may obscure small masses. MAMMOGRAPHY FINDINGS Bilateral: No suspicious mass, asymmetry, microcalcification, or other abnormality seen. IMPRESSION: * No evidence of malignancy. RECOMMENDATIONS Bilateral * Annual screening mammography. OVERALL ASSESSMENT CATEGORY BI-RADS-1: Negative. The [employer] recommends annual screening mammography beginning at age 40 for women with average risk of breast cancer. ELECTRONICALLY SIGNED: Elva Wright M.D. on 03/07/2025 at 03:05:14 PM PT Interpreting Station ID: [id number]
== END ==
PROVIDERS: PCP Student in an Organized Health Care Education/Training Program; Referring Provider Student in an Organized Health Care Education/Training Program; Visit Provider Student in an Organized Health Care Education/Training Program
DX: Z12.31 Encounter for screening mammogram for malignant neoplasm of breast (principal); R92.333 Mammographic heterogeneous density, bilateral breasts
CPT/HCPCS: 77063; 77067